=== PATIENT | female | born 1945 | race Caucasian/White ===

== ENCOUNTER 2022-02-25 07:56 | Outpatient (CLI) | payer MEDICARE, BC, SELFPAY ==
[2022-02-25 10:45] LABS: Cholesterol* 141 mg/dL (90-199)
[2022-02-25 10:46] LABS: HDL Cholesterol* 45 mg/dL (>=50); LDL Cholesterol Calculated 67 mg/dL (<100); Triglycerides* 145 mg/dL (40-149)
== END 2022-02-25 07:57 | disposition home or self-care (01) ==
PROVIDERS: PCP Family Medicine; Visit Provider Family Medicine
DX: E78.5 Hyperlipidemia, unspecified (principal)
CPT/HCPCS: 80053; 80061

== ENCOUNTER 2022-03-05 11:17 | Outpatient (CLI) | payer MEDICARE, BC, SELFPAY ==
[2022-03-05 15:14] LABS: Chloride* 106 mmol/L (96-114); Sodium* 137 mmol/L (135-149)
[2022-03-05 15:15] LABS: Potassium* 4.5 mmol/L (3.6-5.1)
[2022-03-05 15:17] LABS: Alanine Aminotransferase* 21 U/L (4-35); Alkaline Phosphatase* 59 U/L (40-150); Aspartate Amino Transferase* 37 U/L (12-35); Bilirubin Total* 0.7 mg/dL (0.1-1.5); Blood Urea Nitrogen* 15 mg/dL (7-30); Carbon Dioxide* 28 mmol/L (20-32); Creatinine* 0.7 mg/dL (0.5-1.5); Estimated Glomerular Filt Rate 90 ml/min; Glucose* 96 mg/dL (60-115); Total Protein* 6.7 g/dL (6.0-8.3)
[2022-03-05 15:18] LABS: Calcium* 9.2 mg/dL (8.4-10.6)
== END 2022-03-05 11:18 | disposition home or self-care (01) ==
PROVIDERS: PCP Family Medicine; Visit Provider Family Medicine
DX: E78.5 Hyperlipidemia, unspecified (principal)
CPT/HCPCS: 80053

== ENCOUNTER 2022-03-11 07:25 | Day surgery (SDC) | payer MEDICARE, BC, SELFPAY ==
[2022-03-11] VITALS (24 sets, daily range): BP systolic 92–156; BP diastolic 48–87; PULSE 51–69; RESP 12–20; TEMP 35.9–37; O2SAT 95–100; BMI 29.7
--- NOTE | 2022-03-11 08:13 | SUR.PREOP ---
states she had two exposures to covid in the past week. she tested positive
[2022-03-11] MEDS: LACTATED RINGERS 1000 ML 1,000 ML 100 ML IV ×2 (08:30→11:26)
[2022-03-11] MEDS: SODIUM CHLORIDE 0.9 % (FLUSH) 10 ML SYRINGE IVF (08:30)
[2022-03-11] MEDS: OXYCODONE (CR) 10 MG TAB.ER.12H PO (08:35)
[2022-03-11] MEDS: ACETAMINOPHEN 500 MG TABLET 1000 MG PO ×3 (08:35→22:56)
--- NOTE | 2022-03-11 08:42 | SUR.PREOP ---
TIME?OUT:?0845, right knee PT/RN/MDA?VERIFICATION?OF?SURGICAL?SITE,?PROCEDURE,?AND?CONSENT OBTAINED?PRIOR?TO?INVASIVE?PROCEDURE.
[2022-03-11] MEDS: fentaNYL 100 MCG/2 ML inj IVP (08:45)
[2022-03-11] MEDS: MIDAZOLAM HCL 1 MG/ML inj IVP (08:45)
--- NOTE | 2022-03-11 09:05 | W.PM.NB ---
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 Images saved: Yes Medications given in 5ml increments after negative aspiration: Ropivicaine %: 0.5 mL: 20 Decadron (mg): 10 Precedex (mcg): 20 Patient tolerated procedure well: Yes Block Charges Block Charge (with Pro Fee): Femoral Nerve Use of Ultrasound Machine for Block: Yes- US Guidance/pain block
--- NOTE | 2022-03-11 09:07 | P.NB_ITS ---
Nerve Block Nerve Block Time Seen by Provider: 08:45 Date Seen: 03/11/22 Type of block requested by surgeon for post-operative analgesia: geniculars Side: right Time out performed: Yes Verification of patient name: Yes Verification of date of : Yes Site marking: site marked Name of person performing procedure: Blaze Rosemary Continuous monitoring Was continuous monitoring of O2 sat, B/P, monitoring manager, recorded every 15 minutes?: Yes Procedure Checklist: sterile prep, needles and gloves Ultrasound guided. Images saved: Yes Medications given in 5ml increments after negative aspiration: Ropivicaine %: 0.5 mL: 10 Patient tolerated procedure well: Yes Block Charges Block Charge (with Pro Fee): Genicular Nerve Block Use of Ultrasound Machine for Block: Yes- US Guidance/pain block
[2022-03-11] MEDS: CEFAZOLIN 2 GM INJ IVP (09:15)
[2022-03-11] MEDS: TRANEXAMIC ACID 100 MG/ML INJ 1000 MG IV (09:17)
--- NOTE | 2022-03-11 10:26 | SUR.OPER ---
PATIENT QUESTIONS ANSWERED SATISFACTORILY PREOPERATIVELY.? PATIENT BROUGHT TO OR #3 PER CART AFTER ADMINISTRATION OF A BLOCK.? Patient positioned supine on OR #3 bed.? The perioperative?team supported arms bilaterally on arm boards.? Final approval of positioning by surgeon.?
--- NOTE | 2022-03-11 10:28 | CRLHL7_ITS ---
For Patients: As a result of the Cures Act, medical imaging exams and procedure reports are released immediately into your electronic medical record. You may view this report before your referring provider. If you have questions, please contact your health care provider. INDICATION: Post operative total knee arthroplasty TECHNIQUE: Knee radiograph 2 views right COMPARISON: None FINDINGS: Bone: No acute fractures or aggressive bone lesions are identified. Joint: The patient is status post a total knee arthroplasty with patellar resurfacing. No significant knee effusion is seen. Soft tissue: Anterior skin, subcutaneous gas and joint gas are present from recent surgery. No radiopaque foreign bodies are seen. IMPRESSION: 1. There is an unremarkable postoperative appearance of the knee arthroplasty. Dictated by: Cedric Giraldo MD @ 03/11/2022 12:56:41 (Electronically Signed)
--- NOTE | 2022-03-11 10:30 | P.ORPRC_ITS ---
Procedure Note Date of procedure: 03/11/22 Procedure: PREOPERATIVE DIAGNOSIS: Right knee osteoarthritis POSTOPERATIVE DIAGNOSIS: Right knee osteoarthritis NAME OF OPERATION: Right total knee arthroplasty SURGEON: Tevin Ramos MD TWISTING FRAME OPERATOR: Karishma Oleary PA-C ANESTHESIA: Spinal ESTIMATED BLOOD LOSS: 0 mL COMPLICATIONS: None SPECIMENS: None DRAINS: None PREOPERATIVE ANTIBIOTICS: Ancef 2 grams IMPLANTS: 1. J&J Attune # 3 posterior stabilized femur 2. # 3 fixed-bearing tibia 3. # 3 posterior stabilized, 7 mm fixed-bearing polyethylene 4. 32 patella INDICATIONS: The patient is a 76-year-old with a longstanding history of severe, unrelenting right knee pain secondary to end-stage (grade IV) right knee osteoarthritis. Despite appropriate nonoperative management, including activity modification, anti-inflammatories, bgfw-kzp-vkczyoi pain medication, bracing, physical therapy, and injections they continue to have pain and disability. Operative intervention was offered. The risks, benefits and expected outcomes were discussed in detail. These included but were not limited to: Infection, bleeding, injury to blood vessel or nerve, venous thromboembolism. All questions were answered to their satisfaction. Use of an production administrative assistant was necessary throughout the case for patient positioning and safety, soft tissue retraction, and closure. PROCEDURE: Spinal anesthesia was administered. The patient was placed supine on the operating table. The production administrative assistant made sure the patient was positioned appropriately. The lower extremity was prepped and draped in the usual sterile fashion. The limb was exsanguinated with the Mitch bandage. The pneumatic tourniquet was inflated to 300 mmHg. A standard anterior incision was made with the knee in flexion. Subcutaneous dissection was sharply taken through fascial layer #1. Full-thickness medial and lateral flaps were elevated. The production administrative assistant retracted the soft tissues and protected them throughout the case. A standard medial parapatellar approach was made. The patella was everted. The infrapatellar fat pad was preserved. The menisci and cruciate ligaments were sharply d?brided. Marginal osteophytes were d?brided with the rongeur. The drill was used to penetrate the femoral canal. The canal was aspirated and irrigated with pulse lavage. The intramedullary femoral guide was placed for a 5-degree valgus cut, removing 10 mm off the distal femur. The saw was used to make the cut. Whitesides line and the trans epicondylar axis were marked. The femoral sizing guide was pinned onto the distal femur. Three degrees of external rotation nicely parallels the transepicondylar axis. Pins were placed for posterior referencing. The four-in-one cutting guide was pinned onto the distal femur. The anterior, posterior, and chamfer cuts were made. The production administrative assistant protected the collateral ligaments. The box cutting guide was pinned. The box cuts were made. The boxed trial was placed and was an excellent fit. Drill holes for the lugs were made. Attention was then turned to the proximal tibia. The extramedullary tibial guide was placed for a neutral varus/valgus cut with 5 degrees of posterior slope, removing 2 mm based off the medial tibial surface. The production administrative assistant protected the collateral ligaments and the neurovascular bundle. The saw was used to make the cut. Trial components were placed. The knee was nicely balanced in both flexion and extension. The trial components were removed. The tray was placed in appropriate rotation, parallel to our tibial cutting pins. It was pinned by the production administrative assistant and the drill and the punch were used. The tray was removed. The punch was used again. We placed a bone plug in the femoral canal. Attention was then turned to the patella. [place] patellar thickness was 20 mm. The lobster claw resection guide was used with the 7.5 mm liset. The saw was used to make the cut. Drill holes were made by the production administrative assistant. The trial was placed and was an excellent fit. Cancellous surfaces were irrigated with pulse lavage and thoroughly dried by the production administrative assistant. We cemented the tibial component, then the femoral component. We impacted the 7 mm polyethylene onto the tibial tray. The knee was brought into full extension. We then cemented the patellar component. Excessive cement was removed. The cement was allowed to harden. The knee was taken through a range of motion and was found to be nicely balanced in both flexion and extension. The patella tracks centrally. The production administrative assistant did a three minute dilute Betadine solution soak. The production administrative assistant irrigated the wound with 3 liters of normal saline via pulse lavage. The production administrative assistant reapproximated the extensor mechanism with #1 Vicryl in an interrupted vbqiku-[id number]-rwxqp fashion. The production administrative assistant then ran the extensor mechanism with a #1 PDO Stratafix. The production administrative assistant closed the subcutaneous tissues with a 3-0 Stratafix and the skin with a running 3-0 Stratafix in a subcuticular fashion. Glue was used to seal the skin. The production administrative assistant placed a dry dressing, NITA stocking, and Polar Care. Sponge and needle counts were correct x2. The patient tolerated the procedure well. There were no apparent complications. They were carefully transferred to the hospital bed and taken to the postanesthesia care unit in satisfactory condition. PLAN: The patient will be mobilized with physical therapy. Aspirin will be used for DVT prophylaxis. They will be discharged to home once medically appropriate.
--- NOTE | 2022-03-11 11:25 | W.ANESCHARGE ---
Anesthesia Charges Start Date/Time Anesthesia Start Date: 03/11/22 Anesthesia Start Time: 09:06 Stop Date/Time Anesthesia Stop Date: 03/11/22 Anesthesia Stop Time: 11:27 Summary Emergency: No Extremes of Age: Over 71-CPT 88408
[2022-03-11] MEDS: CEFAZOLIN 1 GM in 0.9 % SODIUM CHLORIDE Mini-bag 100 ML IVPB ×2 (15:22→23:07)
--- NOTE | 2022-03-11 18:21 | PC.NURSE ---
End of Shift: Patient pleasant and cooperative. Patient vitally stable, lungs clear, BS WNL, IV SL. Patient denies pain, only given scheduled tylenol. Patient tolerating regular diet. Patient has urinated x2 to the toilet. Patient up in chair. Patient 1 assist, walker, gb. Right knee dressing C/D/I.
[2022-03-11] MEDS: SENNOSIDES 1 TAB TABLET 2 TAB PO (21:01)
[2022-03-11] MEDS: ASPIRIN 81 MG TABLET EC PO (21:01)
[2022-03-11] MEDS: SIMVASTATIN 20 MG TABLET PO (21:01)
[2022-03-11] MEDS: OXYCODONE 5 MG TABLET PO (22:58)
[2022-03-12 03:00] VITALS: BP 123/62; PULSE 63; RESP 16; TEMP 36.2; O2SAT 99
[2022-03-12] MEDS: ACETAMINOPHEN 500 MG TABLET 1000 MG PO ×2 (04:33→11:35)
--- NOTE | 2022-03-12 04:58 | PC.NURSE ---
Shift note: Pt is doing well postoperatively. Able walk to BR about 4x with A1, walker and GB. Tolerated liberal fluid and regular diet very well without any complication. Pain has been rated at 2 which has been managed effectively with scheduled and PRN pain medications. Saline locked. Lungs sounds clear throughout.
[2022-03-12 06:28] LABS: Hemoglobin* 10.5 gm/dL (12.0-16.0); Immature Granulocytes Pct Auto 0.2 %; Lymphocytes Percent Auto 9.9 % (20-44); Mean Corpuscular HGB Conc 34 gm/dL (32-36); Mean Corpuscular Hemoglobin 29 pg (26-34); Mean Corpuscular Volume 85 fL (80-100); Monocytes Percent Auto 7.6 % (0.0-11.0); Neutrophils Percent Auto 82.3 % (42.0-72.0); Platelet Count* 228 K/uL (140-440); RDW Coefficient of Variation % 12.5 % (11.5-15.5); Red Blood Count 3.65 m/uL (4.00-5.20); White Blood Count* 14.11 K/uL (4.50-11.00)
[2022-03-12 06:35] LABS: Slide Review Reflex No
[2022-03-12 06:45] LABS: Potassium* 4.2 mmol/L (3.6-5.1); Sodium* 129 mmol/L (135-149)
[2022-03-12 06:48] LABS: Blood Urea Nitrogen* 16 mg/dL (7-30); Creatinine* 0.7 mg/dL (0.5-1.5); Est. Creatinine Clearance* 40.21; Estimated Glomerular Filt Rate 90 ml/min
[2022-03-12 06:54] LABS: INR 1.04 (0.91-1.10); Prothrombin Time 14.2 Seconds
[2022-03-12 07:00] VITALS: BP 126/69; PULSE 65; RESP 16; TEMP 36.5; O2SAT 99
[2022-03-12] MEDS: CEFAZOLIN 1 GM in 0.9 % SODIUM CHLORIDE Mini-bag 100 ML IVPB (07:57)
[2022-03-12] MEDS: OXYCODONE 5 MG TABLET PO ×2 (08:30→11:32)
[2022-03-12] MEDS: SENNOSIDES 1 TAB TABLET 2 TAB PO (08:31)
[2022-03-12] MEDS: ASPIRIN 81 MG TABLET EC PO (08:31)
--- NOTE | 2022-03-12 08:41 | P.ORPN_ITS ---
Subjective Subjective Time Seen by Provider: 07:00 Date Seen: 03/12/22 Principal diagnosis: Status post right total knee replacement Interval history: Nissa is comfortable this morning. She requests no NSAIDs. She will be discharging to home today if physical therapy goes well. Ortho Exam Narrative Exam Narrative: Alert and oriented x3. Patient is in no acute distress. Converses without labored breathing. Hearing is grossly intact. Ambulates with a walker. Examination of the right lower extremity shows mild effusion. Mild soft tissue edema about the right knee. No erythema or drainage or sign of infection. Bilateral calves are soft and nontender. CMS is intact right lower extremity. Const Vital Signs, click to edit/add: Vital Signs - 24 hr 03/11/22 08:45 03/11/22 09:02 03/11/22 08:55 Temperature Pulse Rate 63 56 L 57 L Pulse Rate [Left Pulse Oximeter] Respiratory Rate 20 20 20 Blood Pressure 156/87 H 147/85 H 150/76 H Blood Pressure [Right Arm] Pulse Oximetry 99 99 99 Oxygen Delivery Method Nasal Cannula Nasal Cannula Nasal Cannula Oxygen Flow Rate 3 3 3 03/11/22 11:22 03/11/22 11:27 03/11/22 11:32 Temperature 98 F Pulse Rate 58 L 56 L 54 L Pulse Rate [Left Pulse Oximeter] Respiratory Rate 16 17 17 Blood Pressure 92/51 L 98/49 L 100/72 Blood Pressure [Right Arm] Pulse Oximetry 97 97 98 Oxygen Delivery Method Room Air Room Air Room Air Oxygen Flow Rate 3 03/11/22 11:37 03/11/22 11:42 03/11/22 11:47 Temperature Pulse Rate 54 L 54 L 57 L Pulse Rate [Left Pulse Oximeter] Respiratory Rate 12 12 12 Blood Pressure 101/58 L 117/61 109/71 Blood Pressure [Right Arm] Pulse Oximetry 98 98 99 Oxygen Delivery Method Room Air Room Air Room Air Oxygen Flow Rate 3 3 3 03/11/22 11:52 03/11/22 12:02 03/11/22 12:15 Temperature 97.9 F 96.7 F L 96.7 F L Pulse Rate 57 L 51 L Pulse Rate [Left Pulse Oximeter] 53 L Respiratory Rate 12 14 14 Blood Pressure 127/66 Blood Pressure [Right Arm] 129/56 L 140/77 H Pulse Oximetry 99 100 Oxygen Delivery Method Room Air Room Air Room Air Oxygen Flow Rate 3 03/11/22 12:30 03/11/22 12:45 03/11/22 13:00 Temperature 96.7 F L 96.9 F L 97.2 F L Pulse Rate Pulse Rate [Left Pulse Oximeter] 55 L 56 L 56 L Respiratory Rate 14 14 16 Blood Pressure Blood Pressure [Right Arm] 141/73 H 106/56 L 113/53 L Pulse Oximetry 98 100 99 Oxygen Delivery Method Room Air Room Air Room Air Oxygen Flow Rate 03/11/22 13:30 03/11/22 14:00 03/11/22 15:00 Temperature 97 F L 96.9 F L 97.3 F L Pulse Rate Pulse Rate [Left Pulse Oximeter] 53 L 60 67 Respiratory Rate 16 16 16 Blood Pressure Blood Pressure [Right Arm] 129/77 152/71 H 119/48 L Pulse Oximetry 98 98 98 Oxygen Delivery Method Room Air Room Air Room Air Oxygen Flow Rate 03/11/22 15:00 03/11/22 15:00 03/11/22 16:00 Temperature 97.7 F Pulse Rate Pulse Rate [Left Pulse Oximeter] 67 Respiratory Rate 16 16 Blood Pressure Blood Pressure [Right Arm] 124/67 Pulse Oximetry 100 99 Oxygen Delivery Method Room Air Oxygen Flow Rate 03/11/22 17:00 03/11/22 18:05 03/11/22 19:00 Temperature 97.7 F 97.8 F 97.4 F L Pulse Rate Pulse Rate [Left Pulse Oximeter] 61 69 62 Respiratory Rate 16 16 16 Blood Pressure Blood Pressure [Right Arm] 119/59 L 102/67 102/50 L Pulse Oximetry 99 95 98 Oxygen Delivery Method Room Air Room Air Room Air Oxygen Flow Rate 0 03/11/22 23:00 03/11/22 23:00 03/12/22 03:00 Temperature 97 F L 97.2 F L Pulse Rate Pulse Rate [Left Pulse Oximeter] 62 63 Respiratory Rate 16 16 Blood Pressure Blood Pressure [Right Arm] 128/55 L 123/62 Pulse Oximetry 98 98 99 Oxygen Delivery Method Room Air Room Air Oxygen Flow Rate 0 0 Assessment and Plan Assessment and plan (1) Status post right knee replacement: Problem details: Date of surgery 03/11/2022 Status: Acute Assessment and Plan: Plan for discharge is today to home if they meet discharge criteria. DVT prophylaxis includes aspirin 81 mg twice daily x1 month, Loki stockings x1 m onth may remove for 1 hr per day, frequent ambulation Remove dressing in 1 week. Observe wound and phone Orthopedics with any questions or concerns Return to clinic in 1 week for a wound check Return to clinic in [address] Ramos Minimize narcotic use. Wean off and discontinue soon as possible. Activities as tolerated. No strenuous activity. Outpatient physical therapy as scheduled. Ice and elevate the operative extremity. No restriction on ice.
--- NOTE | 2022-03-12 12:04 | PC.NURSE ---
Pt. alert and oriented. Pt. tolerating reg diet. PRN oxy administered prior to PT/OT visit, and prior to discharge. Pt. dressing to right knee C/D/I. Pt. denies N/V/SOB. Pt. 99% on RA. Discharged today at 1145 accompanied by dtr and son-in-law, IV removed from left wrist intact. Discharge instructions given and Pt. verbalized understanding.
== END 2022-03-12 11:45 | disposition home or self-care (01) ==
LOC: OR 07:39 → MEDSURG 07:40
PROVIDERS: PCP Family Medicine; Visit Provider Orthopaedic Surgery
PROC: (CPT 27447; principal; 2022-03-11 09:00)
DX: M17.11 Unilateral primary osteoarthritis, right knee (principal); M25.561 Pain in right knee
CPT/HCPCS: 27447; 01402; 36415; 64447; 64454; 73560; 76942; 82565; 84132; 84295; 84520; 85025; 85610; 97110; 97116; 97161; 97165; 97530; 97535; 99100; A9270; C1776; J0690; J1100; J2250; J2370; J2405; J2704; J2795; J3010; J7120

== ENCOUNTER 2022-07-26 08:15 | Outpatient (CLI) | payer MEDICARE, BC, SELFPAY ==
--- NOTE | 2022-07-26 08:15 | CRLHL7_ITS ---
For Patients: As a result of the Century Cures Act, medical imaging exams and procedure reports are released immediately into your electronic medical record. You may view this report before your referring provider. If you have questions, please contact your health care provider. INDICATION: Intra-abdominal CALCIFICATION COMPARISON: X-rays 07/12/2022 TECHNIQUE: 2D obrien scale and color Doppler images were acquired of the pelvis using a transabdominal approach. FINDINGS: There is a large calcified uterine fibroid measuring 3.6 x 3.3 x 4.2 cm accounting for the radiographic findings. The uterus measures 8.9 x 5.1 x 6.3 cm. The endometrial thickness is 4 millimeters. The ovaries are not visualized. No pelvic free fluid. IMPRESSION: Right-sided fundal leiomyoma measuring 3.6 x 3.3 x 4.2 cm with coarse calcifications accounting for the radiographic findings. Dictated by Afshin Shankar MD @ 07/26/2022 9:46:32 AM (Electronically Signed)
== END 2022-07-26 08:16 | disposition home or self-care (01) ==
LOC: US 08:16
PROVIDERS: PCP Internal Medicine; Visit Provider Internal Medicine
DX: R19.00 Intra-abdominal and pelvic swelling, mass and lump, unspecified site (principal); D25.9 Leiomyoma of uterus, unspecified
CPT/HCPCS: 76856

== ENCOUNTER 2022-08-18 09:03 | Outpatient (CLI) | payer MEDICARE, BC, SELFPAY ==
--- NOTE | 2022-08-18 09:15 | CRLHL7_ITS ---
For Patients: As a result of the Cures Act, medical imaging exams and procedure reports are released immediately into your electronic medical record. You may view this report before your referring provider. If you have questions, please contact your health care provider. HISTORY: Low back pain with right-sided radiculopathy. Right thigh and groin pain. TECHNIQUE: MRI pelvis without contrast. COMPARISON: Pelvis radiographs 07/29/2022. FINDINGS: Bones: No fracture. No marrow replacing process. No osteonecrosis. Muscles and tendons: Mild osteoarthritis of the left hip with small subarticular cyst-like foci in the posterior acetabulum. Mild osteoarthritis the right hip. No effusions. Muscles and tendons: Proximal rectus femoris, distal iliopsoas, hip adductor, and gluteal tendons are intact bilaterally. Tendinosis of the proximal hamstring tendons bilaterally, mild on the right and moderate on the left. No trochanter or iliopsoas bursal fluid. No muscle edema. Other: Mild degenerative changes of the pubic symphysis with mild subarticular marrow edema on the right side of the joint. Mild degenerative changes of the sacroiliac joints. Lower lumbar spine disc and facet degenerative changes more fully detailed on lumbar spine MRI report. Intrapelvic structures: Uterine myomas. Borderline enlarged right pelvic sidewall lymph node measures 10 mm short axis. IMPRESSION: 1. Mild osteoarthritis of both hips. 2. Mild degenerative changes of the pubic symphysis and sacroiliac joints. 3. No fracture. 4. Tendinosis of the proximal hamstring tendons bilaterally, left greater than right. Dictated by Job Pradhan MD @ 08/19/2022 11:49:37 AM (Electronically Signed)
--- NOTE | 2022-08-18 10:00 | CRLHL7_ITS ---
For Patients: As a result of the 21st Century Cures Act, medical imaging exams and procedure reports are released immediately into your electronic medical record. You may view this report before your referring provider. If you have questions, please contact your health care provider. Indication Low back pain. Right-sided radiculopathy. TECHNIQUE: Multiplanar multisequence noncontrast MR images acquired through the lumbar spine. COMPARISON: None. FINDINGS: The lumbar lordosis is preserved. Vertebral heights maintained. No acute fracture. Mildly heterogeneous background T1 marrow signal, nonspecific though potentially related to osseous demineralization. Normal conus terminates at L1. T12-L1: No spinal canal or neural foraminal narrowing. L1-2: Mild disc degeneration. Shallow left eccentric disc bulge. Mild facet arthropathy. No spinal canal or neural foraminal narrowing. L2-3: Moderate disc degeneration and disc height loss. Circumferential disc bulge. Superimposed right subarticular disc protrusion extending 6 mm posterior the endplate margin. Mild facet arthropathy. Nase-un-nudxsggb spinal canal narrowing. Severe right lateral recess stenosis. No neural foraminal narrowing. L3-4: Moderate disc degeneration and disc height loss. Posterior disc bulge. Moderate facet arthropathy. Mild spinal canal narrowing. Mild right and zoig-mk-vjdaddae left lateral recess narrowing. No neural foraminal narrowing. L4-5: Trace anterolisthesis. Advanced disc degeneration and disc height loss. Moderately extensive vertebral body edema. Left eccentric disc bulging and endplate spondylitic ridging. Jsjt-dz-tzuhylch facet arthropathy. Mild spinal canal narrowing. Moderately severe left lateral recess stenosis. Kxur-kc-jnhinins left greater than right neural foraminal narrowing. L5-S1: Moderate disc degeneration. Shallow posterior disc bulge. Moderate facet arthropathy. No spinal or neural foraminal narrowing. Sacroiliac joint degenerative changes. IMPRESSION: 1. Multilevel lumbar spondylosis without spinal canal stenosis. 2. At L2-3, right subarticular disc protrusion severely narrows the right lateral recess. Mild to moderate spinal canal narrowing. 3. At L3-4, mild right and dqll-xt-bwxbxfkm left lateral recess narrowing. 4. At L4-5, moderately severe left lateral recess stenosis. Mild to moderate left greater than right neural foraminal narrowing. Moderately extensive discogenic vertebral body edema. Dictated by Uziel Giron MD @ 08/19/2022 9:27:22 PM (Electronically Signed)
== END 2022-08-18 09:04 | disposition home or self-care (01) ==
LOC: MRI 09:04
PROVIDERS: PCP Internal Medicine; Visit Provider Family Medicine
DX: M54.50 Low back pain, unspecified (principal); M79.604 Pain in right leg; M54.10 Radiculopathy, site unspecified; M16.0 Bilateral primary osteoarthritis of hip; M51.26 Other intervertebral disc displacement, lumbar region
CPT/HCPCS: 72148; 72195

== ENCOUNTER 2022-09-02 14:32 | Outpatient (CLI) | payer MEDICARE, BC, SELFPAY ==
--- NOTE | 2022-09-02 14:40 | CRLHL7_ITS ---
For Patients: As a result of the Century Cures Act, medical imaging exams and procedure reports are released immediately into your electronic medical record. You may view this report before your referring provider. If you have questions, please contact your health care provider. BILATERAL SCREENING MAMMOGRAM WITH COMPUTER-AIDED DETECTION AND TOMOSYNTHESIS TECHNIQUE: CC and MLO views were obtained. These mammographic images have been obtained using full-field digital technique. These mammographic images were interpreted with the benefit of computer-aided detection. Breast Tomosynthesis was used in this interpretation. COMPARISON FILM: 07/06/21, 06/09/20, 01/18/19. FINDINGS: The breasts are heterogeneously dense, which may obscure small masses IMPRESSION: There is no radiographic evidence for malignancy. ASSESSMENT: BI-RADS Category 1: Negative RECOMMENDATION: Routine screening mammogram in 1 year. A lay language report of this examination will be provided to the patient. Afshin Shankar M.D. Diagnostic Radiologist [email or web address] [place]/Dictated by: Afshin Shankar MD @ 09/03/2022 8:51:00 AM (Electronically Signed)
== END 2022-09-02 14:33 | disposition home or self-care (01) ==
LOC: MAMMO 14:33
PROVIDERS: PCP Internal Medicine; Visit Provider Internal Medicine
DX: Z12.31 Encounter for screening mammogram for malignant neoplasm of breast (principal); R92.2 Inconclusive mammogram
CPT/HCPCS: 77063; 77067

== ENCOUNTER 2023-02-21 08:59 | Outpatient (CLI) | payer MEDICARE, BC, SELFPAY | END 2023-02-21 09:00 | disposition home or self-care (01) | LOC: NFLDREF 02-23 12:04 | PROVIDERS: PCP Internal Medicine; Referring Provider Internal Medicine; Visit Provider Internal Medicine | DX: E78.5 Hyperlipidemia, unspecified (principal); I10 Essential (primary) hypertension; E66.9 Obesity, unspecified | CPT/HCPCS: 80053; 80061 ==

== ENCOUNTER 2023-09-14 10:23 | Outpatient (CLI) | payer MEDICARE, BC, SELFPAY ==
--- OUTSIDE RECORDS SUMMARY | 2023-09-14 10:26 | XMS_ITS | Clinical Summary ---
Author Organization [facility] Address [address] [address] Phone Care Team Providers Care Pump Installer Name Role Phone Unavailable Primary Care Provider Unavailabl e Allergies Active Allergy Reactions Criticality Noted Date Comments Ibuprofen 10/29/2011 Nabumetone 10/29/2011 Medications Medication Sig Dispensed Refills Start Date End Date Status atenolol (TENORMIN) 25 MG tablet Take 25 mg by mouth one time a day. Active hydrochlorothiazide 25 MG tablet Take 25 mg by mouth one time a day. Active SIMVASTATIN OR Take by mouth. Active aspirin (BABY ASPIRIN) 81 MG chewable tablet Chew and swallow 81 mg one time a day. Take with food. Active Social History Tobacco Use Types Packs/Day Years Used Date Smoking Tobacco: Never Assessed Sex and Gender Information Value Date Recorded Sex Assigned at Not on file Gender Identity Not on file Sexual Orientation Not on file Obstetrics History Last Filed Vital Signs Vital Sign Reading Time Taken Comments Blood Pressure 137/74 10/30/2011 1:03 AM CDT Pulse 60 10/30/2011 1:03 AM CDT Temperature 36 ??C (96.8 ??F) 10/29/2011 9:03 PM CDT Respiratory Rate 16 10/30/2011 1:03 AM CDT Oxygen Saturation 96% 10/30/2011 1:03 AM CDT Inhaled Oxygen Concentration - - Weight - - Height - - Body Mass Index - - Plan of Treatment Not on file
--- OUTSIDE RECORDS SUMMARY | 2023-09-14 10:26 | XMS_ITS | Clinical Summary ---
Author Organization [facility] Address [place], [place] [address] Care Team Providers Care Machine Ii Engraver Name Role Phone Polo Salvador MD Primary Care Provider Allergies Active Allergy Reactions Criticality Noted Date Comments Diphenhydramine 02/13/2007 IV Nabumetone 02/13/2007 Medications Medication Sig Dispensed Refills Start Date End Date Status ATENOLOL 25 MG TAB take 1 tablet (25 mg) by oral route once daily 0 11/16/2006 Active HYDROCHLOROTHIAZIDE 25 MG TAB take 1 tablet (25 mg) by oral route once daily 0 11/16/2006 Active MULTIVITAMIN TAB take 1 tablet by oral route once daily with food 0 02/13/2007 Active simvastatin (ZOCOR) 20 mg tablet Take 1 tablet by mouth at bedtime. 0 12/04/2012 Active typhoid vaccine (VIVOTIF UMER VACCINE) 2 billion unit capsuleIndications:Ty phoid-paratyphoid vaccination Take 1 capsule by mouth with lukewarm water on empty stomach on days 1,3,5 and 7. 4 capsule 0 12/04/2012 Active Active Problems Problem Noted Date Diagnosed Date Hypertension Hyperlipidemia Immunizations Name Administration Dates Next Due HepA-HepB (Twinrix) 12/07/2012 01/07/2013 Influenza, IIV3 (Age >=3 years) 12/04/2012 Pneumococcal Poly,23-Valent (Pneumovax) 12/08/19 13 Family History Medical History Relation Name Comments Cancer-prostate Brother Heart Disease Father CABG Cancer Mother Sarcoma Cancer Sister lung Relation Name Status Comments Brother Father Mother Sister Social History Tobacco Use Types Packs/Day Years Used Date Smoking Tobacco: Never Smokeless Tobacco: Never Tobacco Cessation:Counseling Given: Yes Alcohol Use Standard Drinks/Week Comments Yes 0 (1 standard drink = 0.6 oz pur e alcohol) once a month Sex and Gender Information Value Date Recorded Sex Assigned at Not on file Gender Identity Not on file Sexual Orientation Not on file Obstetrics History Last Filed Vital Signs Vital Sign Reading Time Taken Comments Blood Pressure 133/82 12/04/2012 9:08 AM CDT Pulse 54 12/04/2012 9:08 AM CDT Temperature 36.4 ??C (97.6 ??F) 12/04/2012 9:08 AM CD T Respiratory Rate 16 02/13/2007 8:13 AM LPC Oxygen Saturation 99% 12/04/2012 9:08 AM CDT Inhaled Oxygen Concentration - - Weight 87.6 kg (193 lb 3.2 oz) 12/04/2012 9:08 A M CDT Height 161.9 cm (5' 3.75) 12/04/2012 9:08 AM CD T Body Mass Index 33.42 12/04/2012 9:08 AM CDT Plan of Treatment Health Maintenance Due Date Last Done Comments Tdap 1957 Depression screening for age 12+ 1958 BMI (ht and wt on same day) for age 18+ 1964 Hepatitis C screening for age 18-79 1964 Tetanus booster 1966 Zoster (shingles) series for age 50+ (1 of 2) 11/22/18 97 DEXA/DXA scan for age 65+ 11/23/2011 Pneumococcal series for age 65+ (2 of 2 - PCV) 014 12/07/2012 COVID-19 vaccine series ( - 2022-24 season) 3 Influenza for age 65+ 11/06/2023 12/04/2012 Care Teams Machine Ii Engraver Relationship Specialty Start Date End Date Polo Salvador MD [address] [place] [id number] PCP - General 11/16/06
--- NOTE | 2023-09-14 10:45 | CRLHL7_ITS ---
For Patients: As a result of the Century Cures Act, medical imaging exams and procedure reports are released immediately into your electronic medical record. You may view this report before your referring provider. If you have questions, please contact your health care provider. BILATERAL SCREENING MAMMOGRAM WITH COMPUTER-AIDED DETECTION AND TOMOSYNTHESIS TECHNIQUE: CC and MLO views were obtained. These mammographic images have been obtained using full-field digital technique. These mammographic images were interpreted with the benefit of computer-aided detection. Breast Tomosynthesis was used in this interpretation. COMPARISON FILM: 09/02/22, 07/06/21, 06/09/20. FINDINGS: The breasts are heterogeneously dense, which may obscure small masses. IMPRESSION: There is no radiographic evidence for malignancy. ASSESSMENT: BI-RADS Category 2: Benign RECOMMENDATION: Routine screening mammogram in 1 year. A lay language report of this examination will be provided to the patient. Alec Trevino M.D. Diagnostic/Nuclear Medicine Radiologist [email or web address] NIKOLAI/pietro SP/Dictated by: Alec Trevino MD @ 09/15/2023 10:47:00 AM (Electronically Signed)
== END 2023-09-14 10:24 | disposition home or self-care (01) ==
LOC: MAMMO 10:24
PROVIDERS: PCP Internal Medicine; Visit Provider Internal Medicine
DX: Z12.31 Encounter for screening mammogram for malignant neoplasm of breast (principal); R92.2 Inconclusive mammogram
CPT/HCPCS: 77063; 77067

== ENCOUNTER 2023-12-20 08:20 | Outpatient (CLI) | payer MEDICARE, BC, SELFPAY ==
--- OUTSIDE RECORDS SUMMARY | 2023-12-20 08:22 | XMS_ITS | Clinical Summary ---
Author Organization [facility] Address [address] [address] Phone Care Team Providers Care Burning Machine Operator Name Role Phone Unavailable Primary Care Provider [...] Mass Index - - Plan of Treatment Upcoming Encounters Date Type Department Care Team (Latest Contact Info) Description 01/11/2024 9:30 AM [facility] Hospital Encounter [place] [facility] PREOP/PHASE II [address] [place] [address] Rachelle Blanco MD [facility] [address] [facility] [address] [place], [place] [id number] 01/11/2024 9:30 AM 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
--- OUTSIDE RECORDS SUMMARY | 2023-12-20 08:22 | XMS_ITS | Clinical Summary ---
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
== END 2023-12-20 08:21 | disposition home or self-care (01) ==
PROVIDERS: PCP Internal Medicine; Visit Provider Internal Medicine
DX: Z01.818 Encounter for other preprocedural examination (principal)
CPT/HCPCS: 80053

== ENCOUNTER 2024-01-16 18:50 | Outpatient (CLI) | payer MEDICARE, BC, SELFPAY ==
--- OUTSIDE RECORDS SUMMARY | 2024-01-21 06:28 | XMS_ITS | Clinical Summary ---
Author Organization [facility] Address [address] [address] Phone Care Team Providers Care Thermoscrew Operator Name Role Phone Virgen Arnold MD Primary Care Provider +1- [phone] Allergies Active Allergy Reactions Criticality Noted Date [...] Department Care Team Description 01/11/2024 9:27 AM ROCK PICKER Anesthesia Event [facility] SURGERY OR [address] [place] [phone] Polo Mills MD Honl, Cody C, DO 01/11/2024 9:20 AM ROCK PICKER - 01/11/2024 11:10 AM ROCK PICKER Surgery [facility] SURGERY OR [address] [place] [phone] Rachelle Blanco MD Left total knee arthroplasty 01/11/2024 7:50 AM ROCK PICKER Ancillary Procedure [facility] RADIOLOGY OS FILMS [address] [place] [phone] 01/11/2024 7:34 AM ROCK PICKER - 01/12/2024 11:34 AM ROCK PICKER Hospital Encounter [facility] INPATIENT [address] [place] [phone] Rachelle Blanco MD S/P total knee arthroplasty, left (Primary Dx) Discharge Disposition: Home and/or Self Care 01/11/2024 Travel 01/09/2024 Travel from Last 3 Months Surgical History Surgery Date Site/Laterality Comments TOTAL KNEE REPLACEMENT KNEE ARTHROSCOPY Right TONSILLECTOMY AND ADENOIDECTOMY APPENDECTOMY TOTAL KNEE ARTHROPLASTY 01/11/2024 Knee/Left Procedure: Left total knee arthroplasty; Surgeon: Rachelle Blanco MD; Location: [facility] OR Medical devices from this surgery are in the Medical Devices section. Social History Tobacco Use Types Packs/Day Years Used Date Smoking Tobacco: Never Passive Smoke Exposure: Past Smokeless Tobacco: Never Tobacco Cessation:Counseling Given: No Alcohol Use Standard Drinks/Week Comments Not Currently 0 (1 standard drink = 0.6 oz pur e alcohol) [facility] Utilities Answer Date Recorded In the [...] any time in the past 12 m [facility], were you homeless or living in a [facility] (including now)? Patient declined 01/11/2024 IP Custom IPV Answer Date Recorded Do you feel UNSAFE in any of your personal relationships with your family members or any other acquaintances? No 2023 Comments No Sex and Gender Information Value Date Recorded Sex Assigned at Not on file Legal Sex Female 10:55 PM ROCK PICKER Gender Identity Not on file Sexual Orientation Not on file Travel History Travel Start Travel End [place] 12/09/2023 01/09/2024 [place] 12/09/2023 01/09/2024 [place] 12/09/2023 01/09/2024 Obstetrics History Last Filed Vital Signs Vital Sign Reading Time Taken Comments Blood Pressure 115/56 01/12/2024 8:15 AM ROCK PICKER Pulse 55 01/12/2024 8:15 AM ROCK PICKER Temperature 36.4 ??C (97.6 ??F) 01/12/2024 8:15 AM CS T Respiratory Rate 16 01/12/2024 8:15 AM ROCK PICKER Oxygen Saturation 99% 01/12/2024 8:15 AM ROCK PICKER Inhaled Oxygen Concentration - - Weight 81.4 kg (179 lb 7.3 oz) 01/11/2024 7:45 A M ROCK PICKER Height 160 cm (5' 3) 01/11/2024 7:45 AM ROCK PICKER Body Mass Index 31.79 01/11/2024 7:45 AM ROCK PICKER Plan of Treatment Health Maintenance Due Date [...] this topic Medical Devices Implanted Type Area Head Rigger Device Identifier Shelf Expiration Date Model / Serial / Lot Cement Bone Mv Simplex P Speedset - [id number] Implanted:Qty: 2 on 01/11/2024 by Rachelle Blanco MD at [facility] Left: Knee CEASAR [id number] 6192-1-010 / NA / [id number] Attune Pinning System Disp - [id number] Implanted:Qty: 1 on 01/11/2024 by Rachelle Blanco MD at [facility] Left: Knee DEPUY [id number] 12/04/2025 2544-00-111 / NA / [id number] Tibia Attune Fb Sz 4 Cemented - [id number] Implanted:Qty: 1 on 01/11/2024 by Rachelle Blanco MD at [facility] Left: Knee DEPUY [id number] 09/03/2033 1506-70-004 / NA / [id number] Insert Tibial Attune Aox Ps Fb Sz 4 8mm - [id number] Implanted:Qty: 1 on 01/11/2024 by Rachelle Blanco MD at [facility] Left: Knee [id number] 08/04/2028 1516-40-408 / NA / [id number] Femur Attune Ps Size 4 Left - [id number] Implanted:Qty: 1 on 01/11/2024 by Rachelle Blanco MD at [facility] Left: Knee DEPUY [id number] 07/05/2031 1504-10-104 / NA / [id number] Patella Attune Aox Medial Dome 35mm - [id number] Implanted:Qty: 1 on 01/11/2024 by Rachelle Blanco MD at [facility] Left: Knee DEPUY [id number] 07/05/2031 1518-20-035 / NA / [id number] Procedures Procedure Name Priority Date/Time Associated Diagnosis Comments HEMOGLOBIN Routine 01/12/2024 5:44 AM ROCK PICKER ANESTHESIA BLOCK SPINAL 01/11/2024 11:14 AM ROCK PICKER TOTAL KNEE REPLACEMENT 01/11/2024 9:27 AM ROCK PICKER Knee pain M25.569 Case Notes Depuy attune -fixed Special Needs pt has sleep apnea and uses cpap allergic to nsaids -ibuprofen, naprosyn HEMOGLOBIN Routine 01/11/2024 7:55 AM ROCK PICKER US ANES REFERENCE STAT 01/11/2024 7:4 6 AM ROCK PICKER from Last 3 Months Results * (ABNORMAL) HEMOGLOBIN (01/12/2024 5:44 AM ROCK PICKER) HGB 9.9(L) 12.0 - 16.0 g/dl 01/12/2024 6:12 AM ROCK PICKER [facility] Blood BLOOD SPECIMEN / Unknown Venipuncture / Unknown 01/12/2024 5:44 AM ROCK PICKER 01/12/2024 5:57 AM ROCK PICKER Janneth Nichole PA-C EC HEMATOLOGY ORDERABLES Final Result Performing Organization Address City/State/[facility] Co de Phone Number [address] [phone] * Spinal (01/11/2024 11:14 AM ROCK PICKER) Narrative Polo Mills MD - 01/11/2024 11:14 AM ROCK PICKER Polo Mills MD ? 01/11/2024 11:14 AM [...] decubitus Prep: ChloraPrep Patient monitoring: heart rate, cardiac sonographer and continuous pulse ox Approach: right paramedian [...] Final Result * HEMOGLOBIN (01/11/2024 7:55 AM ROCK PICKER) HGB 13.1 12.0 - 16.0 g/dl 01/11/2024 8:02 AM [facility] Blood BLOOD SPECIMEN / Unknown Venipuncture / Unknown 01/11/2024 7:55 AM ROCK PICKER 01/11/2024 7:58 AM ROCK PICKER us Rachelle Blanco MD EC HEMATOLOGY ORDERABLES Fi nal Result [facility] [address] [phone] * US ANES REFERENCE (01/11/2024 7:46 AM ROCK PICKER) Narrative Lydia, User - 01/11/2024 7:46 AM ROCK PICKER There is not a diagnostic result associated [...] inal Result from Last 3 Months Insurance [facility] MEDICARE COST PART A&B Advance Directives For more information, please contact: [phone] * Full Code (Latest Code Status on File) Date Activated Date Inactivated Comments 01/11/2024 12:11 PM 01/12/2024 3:40 PM * Full Code Date Activated Date Inactivated Comments 01/11/2024 7:46 AM 01/11/2024 12:11 PM Care Teams Thermoscrew Operator Relationship Specialty Start Date End Date Virgen Arnold MD [facility] [address] [address] PCP - General Internal Medicine 01/11/24
--- OUTSIDE RECORDS SUMMARY | 2024-01-21 06:28 | XMS_ITS | Encounter Summary ---
Author Organization [facility] Address [address] [address] Phone Care Team Providers Care Research Chemist Name Role Phone Virgen Arnold MD Primary Care Provider +1- [phone] Encounter Details Date Type Department Care Team (Latest Contact Info) Description 01/11/2024 Travel Social History Tobacco Use Types Packs/Day Years Used Date Smoking Tobacco: Never Passive Smoke Exposure: Past Smokeless Tobacco: Never Alcohol Use Standard Drinks/Week Comments Not Currently 0 (1 standard drink = 0.6 oz pur e alcohol) [facility] Utilities Answer Date Recorded In the past 12 months has th e electric, gas, oil, or water [employer] threatened to shut off services in your [...] any time in the past 12 m [facility], were you homeless or living in a halfway (including now)? Patient declined 01/11/2024 EH IP Custom IPV Answer Date Recorded Do you feel UNSAFE in any of your personal relationships with your family members or any other acquaintances? No 2023 Comments No Sex and Gender Information Value Date Recorded Sex Assigned at Not on file Legal Sex Female 10:55 PM SERVICE LINE COORDINATOR Gender Identity Not on file Sexual Orientation Not on file Travel History Travel Start Travel End [place] 12/09/2023 01/09/2024 [place] 12/09/2023 01/09/2024 [place] 12/09/2023 01/09/2024 documented as of this encounter [...] on filedocumented in this encounter Care Teams Research Chemist Relationship Specialty Start Date End Date Virgen Arnold MD [facility] [address] [place] [address] PCP - General Internal Medicine 01/11/24 documented as of this encounter
--- OUTSIDE RECORDS SUMMARY | 2024-01-21 06:28 | XMS_ITS | Encounter Summary ---
Author Organization [facility] Address [address] [address] Phone Care Team Providers Care Contact Person Name Role Phone Virgen Arnold MD Primary Care Provider [phone]- [phone] Reason for Visit * Reason Onset Date Comments Pre-Procedure Call 01/09/2024 * Auth/Cert (Routine) Specialty Diagnoses / Procedures Referred By Tracy craig Referred To Contact Diagnoses Knee pain M25.569 Procedures TOTAL KNEE REPLACEMENT Left total knee arthroplasty Rachelle Blanco MD [facility] [address] [place] [address] Phone: tel: fax: Referral ID Status Reason Start Date Expiration Date Visits Re quested Visits Authorized [id number] 1 1 Encounter Details Date Type Department Care Team (Latest Contact Info) Description 01/11/2024 7:34 AM FUDGE CANDY MAKER - 01/12/2024 11:34 AM FUDGE CANDY MAKER Hospital Encounter [address] [id number] Rachelle Blanco MD [facility] [address] [place] [id number] S/P total knee arthroplasty, left (Primary Dx) Discharge Disposition: Home and/or Self Care Social History Tobacco Use Types Packs/Day Years Used Date Smoking Tobacco: Never Passive Smoke Exposure: Past Smokeless Tobacco: Never Tobacco Cessation:Counseling Given: No Alcohol Use Standard Drinks/Week Comments Not Currently 0 (1 standard drink = 0.6 oz pur e alcohol) [facility] Utilities Answer Date Recorded In the past [...] any time in the past 12 m [facility], were you homeless or living in a usp (including now)? Patient declined 01/11/2024 EH IP Custom IPV Answer Date Recorded Do you feel UNSAFE in any of your personal relationships with your family members or any other acquaintances? No 2023 Comments No Sex and Gender Information Value Date Recorded Sex Assigned at Not on file Legal Sex Female 10:55 PM FUDGE CANDY MAKER Gender Identity Not on file Sexual Orientation Not on file Travel History Travel Start Travel End [place] 12/09/2023 01/09/2024 [place] 12/09/2023 01/09/2024 [place] 12/09/2023 01/09/2024 documented as of this encounter Last Filed Vital Signs Vital Sign Reading Time Taken Comments Blood Pressure 115/56 01/12/2024 8:15 AM FUDGE CANDY MAKER Pulse 55 01/12/2024 8:15 AM FUDGE CANDY MAKER Temperature 36.4 ??C (97.6 ??F) 01/12/2024 8:15 AM CS T Respiratory Rate 16 01/12/2024 8:15 AM FUDGE CANDY MAKER Oxygen Saturation 99% 01/12/2024 8:15 AM FUDGE CANDY MAKER Inhaled Oxygen Concentration - - Weight 81.4 kg (179 lb 7.3 oz) 01/11/2024 7:45 A M FUDGE CANDY MAKER Height 160 cm (5' 3) 01/11/2024 7:45 AM FUDGE CANDY MAKER Body Mass Index 31.79 01/11/2024 7:45 AM FUDGE CANDY MAKER documented in this encounter Functional Status * Patient's Vision Adequate to Safely Complete Daily Activities Answer Date of Assessment Author Yes 01/11/2024 11:57 AM FUDGE CANDY MAKER Janneth Huntley RN * Patient's Memory Adequate to Safely Complete Daily Activities Answer Date of Assessment Author Yes 01/11/2024 11:57 AM FUDGE CANDY MAKER Janneth Huntley RN documented as of this encounter Mental Status * Patient's Judgment Adequate to Safely Complete Daily Activities Answer Entry Date Author Yes 01/11/2024 11:57 AM FUDGE CANDY MAKER Janneth Huntley RN documented in this encounter [...] Provider. Follow Up Instructions: Janneth Nichole PA-C [facility] [address] Skilled Services Certification/Face to Face encounter: Patient Name: Leticia Church : 1945 Maribell Gold PA-C [facility] E CANDY MAKER documented in this encounter Discharge Instructions * Appointments* Kimi Marshall RN - 01/12/2024 2:22 AM FUDGE CANDY MAKER Post-op appointment scheduled with Janneth Nichole PA-C on 01/25/24 at 1:15 pm at the [place] office E CANDY MAKER documented in this encounter Medications at Time [...] Means Destination Comment s Home and/or Self Group Home documented in this encounter Progress Notes * [...] end cane. The patient and their assistant softball coach was provided education and academic counselor on safe body mechanics and transfer [...] 61-90 Moderate Dependence 91-99 Slight Dependence 100 Richmond Score Prediction Less than 40 Unlikely to [...] to note. The patient and their assistant softball coach have been instructedon safe patient handling [...] Total Treatment Time: 30 minutes Gait Training (67592) = 15 minutes Therapeutic Exercise (58038) = 15 minutes E CANDY MAKER * Kelin Santana PA-C - 01/12/2024 9:34 [...] symptoms of active bleed. Monitor. HTN Continue PIPER HELPER lisionpril POD1 with hold parameters. Hold PIPER HELPER hydrochlorothiazide Takes atenolol in the evenings; will [...] Status: Full Code Kelin Santana PA-C Hospitalist E CANDY MAKER * Janneth Asif RN - 01/11/2024 11:48 AM CST Patient states she has taken ASA before and never had issues. Patient states she I'm fine takingAsprin after surgery to prevent blood clots. E CANDY MAKER * Kelin Santana PA-C - 01/11/2024 10:56 AM CST PROGRESS NOTE Date of Service: 01/11/2024 Subjective: POD 0 s/p LTKA Stable post op Patient denies headache, dizziness, LOC, syncope, presyncope, nausea, vomiting, abdominal pain, diarrhea, constipation, chest pain, shortness of breath, cough, fevers, chills. Reviewed Preop H&P. Reviewed Preop labs. 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 She typically [...] bowel regimen, anticoagulation and discharge. HTN Continue PIPER HELPER lisionpril POD1 with hold parameters. Hold PIPER HELPER hydrochlorothiazide Takes atenolol in the evenings; will [...] including nursing, social work and other consultants. E CANDY MAKER * Brina Davis RN - 01/02/2024 11:22 [...] Plan Outpatient Outpatient PT Plan Verified;Location (comment) ([place] [facility]) Length of Stay Plan reviewed;Overnight stay Gear Inspector name & phone number -Cherelle castañeda [phone] Will your assistant softball coach be the one picking you up [...] Pre-op H&P date 12/20/23 Pre-op H&P location [facility] How many stairs to enter your [...] surgical site contact [facility] provider. Patient and Gear Inspector verbalized understanding and readiness for discharge. Patient belonging identified, pt and assistant softball coach verbalize all belongings accounted for. Patient [...] & Skin Assessment flowsheet for intervention documentation. E CANDY MAKER * Op Note - Rachelle Blanco MD - 01/12/2024 9:00 AM CST Surgeon: Rachelle Blanco MD Lab Support Tech: ESTEFANY Hinojosa PA-C, skilled bacteriology research assistant, was required for retraction soft tissues, [...] clinic follow-up in 10 to 14 days. E CANDY MAKER * Care Plan - Marielena Fuchs RN [...] & Skin Assessment flowsheet for intervention documentation. E CANDY MAKER * Care Plan - Janneth Asif RN - 01/11/2024 6:05 PM CST End of Shift Summary and Plan of Care Procedure: POD0 from [facility]. Pain/Comfort: Highest pain rating was a [...] & Skin Assessment flowsheet for intervention documentation. E CANDY MAKER E CANDY MAKER * Rehab Evaluation - Lynda Duncan, PT [...] oxygen), migraine -s/p R TKA 2022 at [facility] Functional Level Prior to Admit: Patient independent [...] post operatively. Therapeutic Activity: Skilled therapeutic education, academic counselor and activity modification was providedto patient for the purpose and intent of improving functional mobility and activities of daily living. Therapist provided education regarding the following topics; Durable Medical Equipment- therapist provided skilled assessment and academic counselor throughout encounter regarding durable medical equipment [...] Time: 30 minutes Evaluation Moderate - Complexity (23250) Therapeutic Activities (22996) = 10 minutes Gait Training (64267) = 3 minutes Therapeutic Exercise (20759) = 5 minutes E CANDY MAKER * Plan of Care - Maribell Gold PA-C - 01/02/2024 11:25 AM CDT PREOPERATIVE ASSESSMENT NOTE Procedure(s): Left total knee arthroplasty Date of Surgery: 01/11/[address] Blanco Post-op appointment scheduled with Janneth Nichole PA-C on 01/25/24 at 1:15 pm at the [place] office Patient's goals after surgery: less pain Patient's concerns with upcoming surgery: none H&P Patient's pre-operative history and physical with their primary care physician was reviewed. From that, the following should be noted: -HTN, HLD, VICENTE (will bring CPAP, doesn't use oxygen), migraine -s/p R TKA at [facility] -Cleared for surgery per PCP. Patient does [...] time of discharge between 9:00AM-12:00PM with their belly dump driver arriving by 8:00 AM Adult Remedial Education Instructor: daughter or granddaughter Discharge location: daughter's home Anticipated Home Health Services: None Gear Inspector/Family member available after discharge: daughter (was not present for this discussion) Post-operative medication plan and education was discussed Patient's medication dosing and sig for the above medications to be determined post-operatively. In the event of a concern arising after surgery, the patient was provided with the following information: During business hours, call surgeon's career portals teacher, Elodia Diaz at [phone]. After business hours, call the on-call provider at [phone]. [facility] was discussed. They [...] Devices Page 17/51 They understand their assistant softball coach should bring their assistive device to [...] is not an outpatient pharmacy at the [facility] and they will need to pick up worker their post-operative medications at a pharmacy of [...] of surgery after arriving at the [facility] [place]. Avoiding a Delayed Surgery Page 10 I gave them this reference to use between now and surgery to avoid their surgery being delayed or cancelled. Maribell Gold PA-C [facility] documented in this encounter Plan of Treatment Not on file documented as of this encounter Procedures Procedure Name Priority Date/Time Associated Diagnosis Comments HEMOGLOBIN Routine 01/12/2024 5:44 AM FUDGE CANDY MAKER TOTAL KNEE REPLACEMENT 01/11/2024 9:27 AM FUDGE CANDY MAKER Knee pain M25.569 Case Notes Depuy attune -fixed Special Needs pt has sleep apnea and uses cpap allergic to nsaids -ibuprofen, naprosyn HEMOGLOBIN Routine 01/11/2024 7:55 AM FUDGE CANDY MAKER US ANES REFERENCE STAT 01/11/2024 7:4 6 AM FUDGE CANDY MAKER documented in this encounter Results * (ABNORMAL) HEMOGLOBIN (01/12/2024 5:44 AM FUDGE CANDY MAKER) HGB 9.9(L) 12.0 - 16.0 g/dl 01/12/2024 6:12 AM FUDGE CANDY MAKER [facility] Blood BLOOD SPECIMEN / Unknown Venipuncture / Unknown 01/12/2024 5:44 AM FUDGE CANDY MAKER 01/12/2024 5:57 AM FUDGE CANDY MAKER Janneth Nichole PA-C EC HEMATOLOGY ORDERABLES Final Result Performing Organization Address [facility] de Phone Number [facility] [address] [place] [address] * HEMOGLOBIN (01/11/2024 7:55 AM FUDGE CANDY MAKER) HGB 13.1 12.0 - 16.0 g/dl 01/11/2024 8:02 AM FUDGE CANDY MAKER [facility] Blood BLOOD SPECIMEN / Unknown Venipuncture / Unknown 01/11/2024 7:55 AM FUDGE CANDY MAKER 01/11/2024 7:58 AM FUDGE CANDY MAKER Rachelle Blanco MD EC HEMATOLOGY ORDERABLES Fi nal Result Performing Organization Address [facility] de Phone Number [facility] [address] [place] [address] * US ANES REFERENCE (01/11/2024 7:46 AM FUDGE CANDY MAKER) Narrative Wicho, User - 01/11/2024 7:46 AM FUDGE CANDY MAKER There is not a diagnostic result associated [...] Tue01/11/24 at 0800 Given 01/11/2024 8:30 AM FUDGE CANDY MAKER 1,000 mg acetaminophen (Tylenol) tablet 1,000 mg 1,000 mg, Oral, 3 TIMES DAILY, First dose on Tue01/11/24 at 1400, Until Discontinued Given 01/12/2024 8:21 AM FUDGE CANDY MAKER 1,000 mg Given 01/11/2024 8:23 PM FUDGE CANDY MAKER 1,000 mg Given 01/11/2024 1:31 PM FUDGE CANDY MAKER 1,000 mg aluminum-magnesium hydroxide (Maalox) oral suspension 30 mL 30 mL, Oral, EVERY 4 HOURS NEEDED, Starting on Tue01/11/24 at 1211, Until Yaz 01/12/24 at 1534, Heartburn aspirin EC tablet 81 mg 81 mg, Oral, 2 TIMES DAILY BREAKFAST AND SUPPER, First dose on Tue01/11/24 at 1800, Until Discontinued Given 01/12/2024 8:21 AM FUDGE CANDY MAKER 81 mg Given 01/11/2024 5:01 PM FUDGE CANDY MAKER 81 mg atorvaSTATin (Lipitor) tablet 10 mg 10 mg, Oral, AT BEDTIME, First dose on Tue01/11/24 at 2200, Until Discontinued Given 01/11/2024 8:26 PM FUDGE CANDY MAKER 10 mg bisacodyl (Dulcolax) suppository 10 mg 10 mg, Rectal, ONE TIME DAILY NEEDED, Starting on Tue01/11/24 at 1211, Until Tue01/12/24 at 1534, Constipation calcium carbonate (Tums) chewable tablet 500 mg 500 mg, Chew, 4 TIMES DAILY NEEDED, Starting on Tue01/11/24 at 1211, Until Yaz 01/12/24 at 1534, Heartburn ceFAZolin (ANCEF) 2 g in dextrose 4% IVPB 100 mL 2,000 mg, Intravenous, at 200 mL/hr, *EVERY 8 HOURS, 2 doses, First dose on Tue01/11/24 at 1700, Last dose on Tue01/12/24 at 0100, Indication? surgical prophylaxis New Bag 01/12/2024 1:24 AM FUDGE CANDY MAKER 2,000 mg 200 mL/hr New Bag 01/11/2024 5:01 PM FUDGE CANDY MAKER 2,000 mg 200 mL/hr ethyl alcohol nasal 62 % swab Nasal, ONCE, 1 dose, On Tue01/11/24 at 0800 Given 01/11/2024 8:[address] 1 Swab ethyl alcohol nasal 62 % swab Nasal, 2 TIMES DAILY, 10 doses, First dose on Tue01/11/24 at 2000, Last dose on Tue01/16/24 at 0800 Given 01/12/2024 8:21 AM FUDGE CANDY MAKER 1 Swab Given 01/11/2024 8:26 PM FUDGE CANDY MAKER 1 Swab fentaNYL (Sublimaze) injection 50-100 mcg 50-100 mcg, IV Push, ONCE, 1 dose, On Tue01/11/24 at 0800 Given 01/11/2024 8:55 AM FUDGE CANDY MAKER 75 mcg HYDROmorphone (Dilaudid) injection 0.25-0.5 mg 0.25-0.5 mg, IV Push, EVERY 2 HOURS NEEDED, Starting on Tue01/11/24 at 1211, Until Yaz 01/12/24 at 1534, Moderate Pain (4-6), Severe Pain (7-10) hydrOXYzine HCl (Atarax) tablet 10 mg 10 mg, Oral, EVERY 6 HOURS NEEDED, Starting on Tue01/11/24 at 1211, Until Tue01/12/24 at 1534, Other, Muscle Spasms Given 01/11/2024 4:14 PM FUDGE CANDY MAKER 10 mg lactated ringers BOLUS BAG 250 mL 250 mL, Intravenous, at 1,000 mL/hr, EVERY 30 MINUTES NEEDED, 2 doses, Starting on Tue01/11/24 at 1211, Until Yaz 01/12/24 at 1534 lactated ringers infusion 10-50 mL/hr, Intravenous, CONTINUOUS, Starting on Tue01/11/24 at 0800, Until Yaz 01/12/24 at 1535 Continued From PreOp-(Anes) 01/11/2024 9:27 AM FUDGE CANDY MAKER Restarted 01/11/2024 8:59 AM FUDGE CANDY MAKER New Bag 01/11/2024 8:39 AM FUDGE CANDY MAKER 10 mL/hr 10 mL/hr lactated ringers infusion [...] Tue01/11/24 at 1211, Until Tue01/12/24 at 1534, Respiratory Depression, Other, BIOINFORMATICS SPECIALIST depression ondansetron (Zofran ODT) disintegrating tablet 4 [...] 0900, Until Discontinued Given 01/12/2024 8:21 AM FUDGE CANDY MAKER 17 g pregabalin (Lyrica) capsule 75 mg 75 mg, Oral, ONCE, 1 dose, On Tue01/11/24 at 0800 Given 01/11/2024 8:30 AM FUDGE CANDY MAKER 75 mg prochlorperazine (COMPAZINE) injection 5 mg [...] Until Discontinued Given 01/12/2024 8:21 A M FUDGE CANDY MAKER 1 Tablet Given 01/11/2024 8:26 PM FUDGE CANDY MAKER 1 Tablet Given 01/11/2024 1:31 PM FUDGE CANDY MAKER 1 Tablet sodium chloride 0.9% IV FLUSH (NS) SYRINGE 5 mL 5 mL, IV Flush, EVERY 8 HOURS, First dose on Tue01/11/24 at 1400, Until Discontinued Given 01/11/2024 1:32 PM FUDGE CANDY MAKER 5 mL sodium chloride 0.9% IV FLUSH [...] Recently Administered Medications Times are shown in FUDGE CANDY MAKER. Scheduled Medication Order 01/10/2024 01/11/2024 01/12/2024 acetaminophen [...] (New Bag - Provider: Mame Hernandez APRN, SACK FILLER) ceFAZolin (ANCEF) 2 g in dextrose 4% [...] ONCE, 1 dose, On Tue01/11/24 at 0800 08 (Given - Provider: Yael Rosenberg RN) ethyl alcohol nasal 62 % swab Nasal, 2 TIMES DAILY, 10 doses, First dose on Tue01/11/24 at 2000, Last dose on Tue01/16/24 at 0800 2025 (Given - Provider: Marielena Fuchs RN) 08 (Given - Provider: Adri St, MANOJ) fentaNYL (Sublimaze) injection 50-100 mcg (COMPLETED) 50-100 mcg, IV Push, ONCE, 1 dose, On Tue01/11/24 at 0800 0855 (Given - Provider: Yael Rosenberg RN) lisinopril (Prinivil, Zestril) tablet 10 mg 10 mg, Oral, ONCE DAILY, First dose on Tue01/12/24 at 0800, Until Discontinued 0819 (Hold Single Do se - Provider: Adri St, RN - Reason: Order Parameters not met) polyethylene glycol 3350 (Glycolax, Miralax) packet 17 g 17 g, Oral, ONCE DAILY, First dose on Tue01/12/24 at 0900, Until Discontinued 08 (Given - Provid er: Adri St, RN)821 (Canceled Entry - Provider: Adri St, RN) pregabalin (Lyrica) capsule 75 mg (COMPLETED) 75 mg, Oral, ONCE, 1 dose, On Tue01/11/24 at 0800 0830 (Given - Provider: Yael Rosenberg, MANOJ) senna-docusate (Senokot-S) 8.6-50 MG per tablet 1 [...] (New Bag - Provider: Mame Hernandez APRN, SACK FILLER) tranexamic acid (Cyklokapron) 1000 mg in sodium chloride 0.7% 100 mL (premix) (COMPLETED) 1,000 mg, Intravenous, at 200 mL/hr, ONCE, 1 dose, On Tue01/11/24 at 0800 1015 (New Bag - Provider: Mame Hernandez APRN, CRNA) Continuous Medication Order 01/10/2024 01/11/2024 01/12/2024 lactated ringers infusion 10-50 mL/hr, Intravenous, CONTINUOUS, Starting on Tue01/11/24 at 0800, Until Yaz 01/12/24 at 1535 0839 (New Bag - Provider: Porfirio Rosenberg RN)0858 (Paused - Provider: Mame Hernandez APRN, CRNA - Comment: Switch to gravity)0859 (Restarted - Provider: Mame Hernandez APRN, CRNA)0927 (Continued From PreOp-(Anes) - Provider: Mame Hernandez [...] Yaz 01/12/24 at 1534, Respiratory Depression, Other, BIOINFORMATICS SPECIALIST depression ondansetron (Zofran ODT) disintegrating tablet 4 [...] 01/11/2024 documented in this encounter Care Teams Contact Person Relationship Specialty Start Date End Date Virgen Arnold MD [facility] [address] [place] [address] PCP - General Internal Medicine 01/11/24 documented as of this encounter
--- OUTSIDE RECORDS SUMMARY | 2024-01-21 06:28 | XMS_ITS | Encounter Summary ---
Author Organization [facility] Address [address] [address] Phone Care Team Providers Care Mercury Purifier Name Role Phone Virgen Arnold MD Primary Care Provider +1- [phone] Encounter Details Date Type Department Care Team (Late st Contact Info) Description 01/11/2024 7:50 AM STEEL SAMPLER Ancillary Procedure [facility] [address] [place] [address] Social History Tobacco Use Types Packs/Day Years Used Date Smoking Tobacco: Never Passive Smoke Exposure: Past Smokeless Tobacco: Never Alcohol Use Standard Drinks/Week Comments Not Currently 0 (1 standard drink = 0.6 oz pur e alcohol) [facility] Utilities Answer Date Recorded In [...] were you homeless or living in a long-term (including now)? Patient declined 01/11/2024 EH IP Custom IPV Answer Date Recorded Do you feel UNSAFE in any of your personal relationships with your family members or any other acquaintances? No 2023 Comments No Sex and Gender Information Value Date Recorded Sex Assigned at Not on file Legal Sex Female 10:55 PM STEEL SAMPLER Gender Identity Not on file Sexual Orientation Not on file Travel History Travel Start Travel End [place] 12/09/2023 01/09/2024 [place] 12/09/2023 01/09/2024 [place] 12/09/2023 01/09/2024 documented as of this encounter Functional Status * Patient's Vision Adequate to Safely Complete Daily Activities Answer Date of Assessment Author Yes 01/11/2024 11:57 AM STEEL SAMPLER Janneth Huntley RN * Patient's Memory Adequate to Safely Complete Daily Activities Answer Date of Assessment Author Yes 01/11/2024 11:57 AM STEEL SAMPLER Janneth Huntley RN documented as of this encounter Mental Status * Patient's Judgment Adequate to Safely Complete Daily Activities Answer Entry Date Author Yes 01/11/2024 11:57 AM STEEL SAMPLER Janneth Huntley RN documented in this encounter Plan of Treatment Not on file documented as of this encounter Procedures Procedure Name Priority Date/Time Associated Diagnosis Comments US ANES REFERENCE STAT 01/11/2024 7:4 6 AM STEEL SAMPLER documented in this encounter Results * US ANES REFERENCE (01/11/2024 7:46 AM STEEL SAMPLER) Narrative Lydia, User - 01/11/2024 7:46 AM STEEL SAMPLER There is not a diagnostic result associated [...] on filedocumented in this encounter Care Teams Mercury Purifier Relationship Specialty Start Date End Date Virgen Arnold MD [place] [id number] PCP - General Internal Medicine 01/11/24 documented as of this encounter
--- OUTSIDE RECORDS SUMMARY | 2024-01-21 06:29 | XMS_ITS | Encounter Summary ---
Author Organization [facility] Address [address] [address] Phone Care Team Providers Care Air Pollution Engineer Name Role Phone Virgen Arnold MD Primary Care Provider [phone] Reason for Visit * Reason Onset Date Comments Pre-Procedure Call 01/09/2024 * Auth/Cert (Routine) Specialty Diagnoses / Procedures Referred By Tracy craig Referred To Contact Diagnoses Knee pain M25.569 Procedures TOTAL KNEE REPLACEMENT Left total knee arthroplasty Rachelle Blanco MD [facility] [address] [place] [address] Phone: tel: fax: Referral ID Status Reason Start Date Expiration Date Visits Re quested Visits Authorized [id number] 1 1 Encounter Details Date Type Department Care Team (Late st Contact Info) Description 01/11/2024 9:20 AM CUTTING MACHINE TENDER - 01/11/2024 11:10 AM CUTTING MACHINE TENDER Surgery [facility] OR [address] [place] [phone] Rachelle Blanco MD [facility] [address] [place] [phone] Left total knee arthroplasty Surgery Details Date/Time Status Location OR Service Patient Class Case Class Case Type Trauma Case? 01/11/2024 9:20 AM Posted [facility] OR OR 03 Orthopedic AM Admit - Outpatient Panel 1 Procedure LRB Anes Op Region Wound Class Comments Left total knee arthroplasty Left Spinal Knee C lean Surgeon Surgeon Role Service Panel Rachelle Blanco MD Primary Orthopedic 1 Janneth Nichole PA-C Assisting Orthopedic 1 Case Notes Depuy attune -fixed Special Needs pt has sleep apnea and uses cpap allergic to nsaids -ibuprofen, naprosyn documented in this encounter Social History Tobacco Use Types Packs/Day Years Used Date Smoking Tobacco: Never Passive Smoke Exposure: Past Smokeless Tobacco: Never Tobacco Cessation:Counseling Given: No Alcohol Use Standard Drinks/Week Comments Not Currently 0 (1 standard drink = 0.6 oz pur e alcohol) [facility] Utilities Answer Date Recorded In the [...] any time in the past 12 [facility], were you homeless or living in a fci (including now)? Patient declined 01/11/2024 EH IP Custom IPV Answer Date Recorded Do you feel UNSAFE in any of your personal relationships with your family members or any other acquaintances? No 2023 Comments No Sex and Gender Information Value Date Recorded Sex Assigned at Not on file Legal Sex Female 10:55 PM CUTTING MACHINE TENDER Gender Identity Not on file Sexual Orientation Not on file Travel History Travel Start Travel End [place] 12/09/2023 01/09/2024 [place] 12/09/2023 01/09/2024 [place] 12/09/2023 01/09/2024 documented as of this encounter Last Filed Vital Signs Vital Sign Reading Time Taken Comments Blood Pressure 164/73 01/11/2024 11:05 AM CUTTING MACHINE TENDER Pulse 51 01/11/2024 11:05 AM CUTTING MACHINE TENDER Temperature 36.9 ??C (98.4 ??F) 01/11/2024 10:[address] Respiratory Rate 16 01/11/2024 11:05 AM CUTTING MACHINE TENDER Oxygen Saturation 98% 01/11/2024 11:05 AM CUTTING MACHINE TENDER Inhaled Oxygen Concentration - - Weight 81.4 kg (179 lb 7.3 oz) 01/11/2024 7:45 A M CUTTING MACHINE TENDER Height 160 cm (5' 3) 01/11/2024 7:45 AM CUTTING MACHINE TENDER Body Mass Index 31.79 01/11/2024 7:45 AM CUTTING MACHINE TENDER documented in this encounter Functional Status * Patient's Vision Adequate to Safely Complete Daily Activities Answer Date of Assessment Author Yes 01/11/2024 11:57 AM CUTTING MACHINE TENDER Janneth Huntley RN * Patient's Memory Adequate to Safely Complete Daily Activities Answer Date of Assessment Author Yes 01/11/2024 11:57 AM CUTTING MACHINE TENDER Janneth Huntley RN documented as of this encounter Mental Status * Patient's Judgment Adequate to Safely Complete Daily Activities Answer Entry Date Author Yes 01/11/2024 11:57 AM CUTTING MACHINE TENDER Janneth Huntley RN documented in this encounter [...] Provider. Follow Up Instructions: Janneth Nichole PA-C [facility] [address] Skilled Services Certification/Face to Face encounter: Patient Name: Leticia Church : 1945 Maribell Gold PA-C [facility] Rounder ING MACHINE TENDER documented in this encounter Discharge Instructions * Appointments* Kimi Marshall RN - 01/12/2024 2:22 AM CUTTING MACHINE TENDER Post-op appointment scheduled with Janneth Nichole PA-C on 01/25/24 at 1:15 pm at the [place] office ING MACHINE TENDER documented in this encounter Medications at Time [...] up to 30 days. 25 Tablet 01/11/2024 aspirin EC 81 MG tablet [...] up to 30 days. 25 Tablet 01/11/2024 documented in this encounter Discharge Disposition Disposition [...] single end cane. The patient and their head boys tennis coach was provided education and anger control counselor on safe body mechanics and transfer [...] 61-90 Moderate Dependence 91-99 Slight Dependence 100 Hill Score Prediction Less than 40 Unlikely to [...] concerns to note. The patient and their head boys tennis coach have been instructedon safe patient handling [...] Total Treatment Time: 30 minutes Gait Training (70201) = 15 minutes Therapeutic Exercise (46313) = 15 minutes ING MACHINE TENDER * Kelin Santana PA-C - 01/12/2024 9:34 [...] symptoms of active bleed. Monitor. HTN Continue OFFICE SWEEPER lisionpril POD1 with hold parameters. Hold OFFICE SWEEPER hydrochlorothiazide Takes atenolol in the evenings; will [...] Status: Full Code Kelin Santana PA-C Hospitalist ING MACHINE TENDER * Janneth Asif RN - 01/11/2024 11:48 AM CST Patient states she has taken ASA before and never had issues. Patient states she I'm fine takingAsprin after surgery to prevent blood clots. ING MACHINE TENDER * Kelin Santana PA-C - 01/11/2024 10:56 AM CST PROGRESS NOTE Date of Service: 01/11/2024 Subjective: POD 0 s/p LTKA Stable post op Patient denies headache, dizziness, LOC, syncope, presyncope, nausea, vomiting, abdominal pain, diarrhea, constipation, chest pain, shortness of breath, cough, fevers, chills. Reviewed Preop H&P. Reviewed Preop labs. 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 She typically [...] bowel regimen, anticoagulation and discharge. HTN Continue OFFICE SWEEPER lisionpril POD1 with hold parameters. Hold OFFICE SWEEPER hydrochlorothiazide Takes atenolol in the evenings; will [...] including nursing, social work and other consultants. ING MACHINE TENDER * Brina Davis, MANOJ - 01/02/2024 11:22 AM CDT 01/02/24 1100 [...] Plan Outpatient Outpatient PT Plan Verified;Location (comment) ([facility]) Length of Stay Plan reviewed;Overnight stay Coach Driver name & phone number Cherelle Rebollar [phone] Will your head boys tennis coach be the one picking you up [...] Pre-op H&P date 12/20/23 Pre-op H&P location [facility] How many stairs to enter your home? [...] surgical site contact [facility] provider. Patient and Coach Driver verbalized understanding and readiness for discharge. Patient belonging identified, pt and head boys tennis coach verbalize all belongings accounted for. Patient [...] & Skin Assessment flowsheet for intervention documentation. ING MACHINE TENDER * Op Note - Rachelle Blanco MD - 01/12/2024 9:00 AM CST Surgeon: Rachelle Blanco MD Manager Filter: ESTEFANY Hinojosa PA-C, skilled foundation assistant, was required for retraction soft tissues, [...] clinic follow-up in 10 to 14 days. ING MACHINE TENDER * Care Plan - Marielena Fuchs RN [...] & Skin Assessment flowsheet for intervention documentation. ING MACHINE TENDER * Care Plan - Janneth Asif RN - 01/11/2024 6:05 PM CST End of Shift Summary and Plan of Care Procedure: POD0 from [facility]. Pain/Comfort: Highest pain rating was [...] & Skin Assessment flowsheet for intervention documentation. ING MACHINE TENDER ING MACHINE TENDER * Rehab Evaluation - Lynda Duncan, PT [...] oxygen), migraine -s/p R TKA 2022 at [facility] Functional Level Prior to Admit: Patient independent [...] post operatively. Therapeutic Activity: Skilled therapeutic education, anger control counselor and activity modification was providedto patient for the purpose and intent of improving functional mobility and activities of daily living. Therapist provided education regarding the following topics; Durable Medical Equipment- therapist provided skilled assessment and anger control counselor throughout encounter regarding durable medical equipment [...] Time: 30 minutes Evaluation Moderate - Complexity (06876) Therapeutic Activities (33759) = 10 minutes Gait Training (45095) = 3 minutes Therapeutic Exercise (70831) = 5 minutes ING MACHINE TENDER * Plan of Care - Maribell Gold PA-C - 01/02/2024 11:25 AM CDT PREOPERATIVE ASSESSMENT NOTE Procedure(s): Left total knee arthroplasty Date of Surgery: 01/11/[address] Blanco Post-op appointment scheduled with Janneth Nichole PA-C on 01/25/24 at 1:15 pm at the [place] office Patient's goals after surgery: less pain Patient's concerns with upcoming surgery: none H&P Patient's pre-operative history and physical with their primary care physician was reviewed. From that, the following should be noted: -HTN, HLD, VICENTE (will bring CPAP, doesn't use oxygen), migraine -s/p R TKA at [facility] -Cleared for surgery per PCP. Patient does [...] time of discharge between 9:00AM-12:00PM with their team cdl driver arriving by 8:00 AM Feeder Associate: daughter or granddaughter Discharge location: daughter's home Anticipated Home Health Services: None Coach Driver/Family member available after discharge: daughter (was not present for this discussion) Post-operative medication plan and education was discussed Patient's medication dosing and sig for the above medications to be determined post-operatively. In the event of a concern arising after surgery, the patient was provided with the following information: During business hours, call surgeon's insurance healthcare representative, Elodia Diaz at [phone]. After business hours, call the on-call provider at [phone]. [facility] was discussed. They [...] Assistive Devices Page 17/51 They understand their head boys tennis coach should bring their assistive device to [...] is not an outpatient pharmacy at the [facility] and they will need to grape picker their post-operative medications at a pharmacy [...] of surgery after arriving at the [facility]. Avoiding a Delayed Surgery Page 10 I gave them this reference to use between now and surgery to avoid their surgery being delayed or cancelled. Maribell Gold PA-C [facility] documented in this encounter Plan of Treatment Not on file documented as of this encounter Procedures Procedure Name Priority Date/Time Associated Diagnosis Comments HEMOGLOBIN Routine 01/12/2024 5:44 AM CUTTING MACHINE TENDER TOTAL KNEE REPLACEMENT 01/11/2024 9:27 AM CUTTING MACHINE TENDER Knee pain M25.569 Case Notes Depuy attune -fixed Special Needs pt has sleep apnea and uses cpap allergic to nsaids -ibuprofen, naprosyn HEMOGLOBIN Routine 01/11/2024 7:55 AM CUTTING MACHINE TENDER US ANES REFERENCE STAT 01/11/2024 7:4 6 AM CUTTING MACHINE TENDER documented in this encounter Results * (ABNORMAL) HEMOGLOBIN (01/12/2024 5:44 AM CUTTING MACHINE TENDER) HGB 9.9(L) 12.0 - 16.0 g/dl 01/12/2024 6:12 AM CUTTING MACHINE TENDER [facility] Blood BLOOD SPECIMEN / Unknown Venipuncture / Unknown 01/12/2024 5:44 AM CUTTING MACHINE TENDER 01/12/2024 5:57 AM CUTTING MACHINE TENDER Janneth Nichole PA-C EC HEMATOLOGY ORDERABLES Final Result Performing Organization Address [facility] Phone Number [facility] [address] [place] [address] * HEMOGLOBIN (01/11/2024 7:55 AM CUTTING MACHINE TENDER) HGB 13.1 12.0 - 16.0 g/dl 01/11/2024 8:02 AM CUTTING MACHINE TENDER [facility] Blood BLOOD SPECIMEN / Unknown Venipuncture / Unknown 01/11/2024 7:55 AM CUTTING MACHINE TENDER 01/11/2024 7:58 AM CUTTING MACHINE TENDER Rachelle Blanco MD EC HEMATOLOGY ORDERABLES Fi nal Result Performing Organization Address [facility] Phone Number [address] [phone] * US ANES REFERENCE (01/11/2024 7:46 AM CUTTING MACHINE TENDER) Narrative Wicho, User - 01/11/2024 7:46 AM CUTTING MACHINE TENDER There is not a diagnostic result associated [...] Tue01/11/24 at 0800 Given 01/11/2024 8:30 AM CUTTING MACHINE TENDER 1,000 mg acetaminophen (Tylenol) tablet 1,000 mg 1,000 mg, Oral, 3 TIMES DAILY, First dose on Tue01/11/24 at 1400, Until Discontinued Given 01/12/2024 8:21 AM CUTTING MACHINE TENDER 1,000 mg Given 01/11/2024 8:23 PM CUTTING MACHINE TENDER 1,000 mg Given 01/11/2024 1:31 PM CUTTING MACHINE TENDER 1,000 mg aluminum-magnesium hydroxide (Maalox) oral suspension 30 mL 30 mL, Oral, EVERY 4 HOURS NEEDED, Starting on Tue01/11/24 at 1211, Until Tue01/12/24 at 1534, Heartburn aspirin EC tablet 81 mg 81 mg, Oral, 2 TIMES DAILY BREAKFAST AND SUPPER, First dose on Tue01/11/24 at 1800, Until Discontinued Given 01/12/2024 8:21 AM CUTTING MACHINE TENDER 81 mg Given 01/11/2024 5:01 PM CUTTING MACHINE TENDER 81 mg atorvaSTATin (Lipitor) tablet 10 mg 10 mg, Oral, AT BEDTIME, First dose on Tue01/11/24 at 2200, Until Discontinued Given 01/11/2024 8:26 PM CUTTING MACHINE TENDER 10 mg bisacodyl (Dulcolax) suppository 10 mg [...] surgical prophylaxis New Bag 01/12/2024 1:24 AM CUTTING MACHINE TENDER 2,000 mg 200 mL/hr New Bag 01/11/2024 5:01 PM CUTTING MACHINE TENDER 2,000 mg 200 mL/hr ethyl alcohol nasal 62 % swab Nasal, ONCE, 1 dose, On Tue01/11/24 at 0800 Given 01/11/2024 8:[address] 1 Swab ethyl alcohol nasal 62 % swab Nasal, 2 TIMES DAILY, 10 doses, First dose on Tue01/11/24 at 2000, Last dose on Tue01/16/24 at 0800 Given 01/12/2024 8:21 AM CUTTING MACHINE TENDER 1 Swab Given 01/11/2024 8:26 PM CUTTING MACHINE TENDER 1 Swab fentaNYL (Sublimaze) injection 50-100 mcg 50-100 mcg, IV Push, ONCE, 1 dose, On Tue01/11/24 at 0800 Given 01/11/2024 8:55 AM CUTTING MACHINE TENDER 75 mcg HYDROmorphone (Dilaudid) injection 0.25-0.5 mg 0.25-0.5 mg, IV Push, EVERY 2 HOURS NEEDED, Starting on Tue01/11/24 at 1211, Until Yaz 01/12/24 at 1534, Moderate Pain (4-6), Severe Pain (7-10) hydrOXYzine HCl (Atarax) tablet 10 mg 10 mg, Oral, EVERY 6 HOURS NEEDED, Starting on Tue01/11/24 at 1211, Until Yaz 01/12/24 at 1534, Other, Muscle Spasms Given 01/11/2024 4:14 PM CUTTING MACHINE TENDER 10 mg lactated ringers BOLUS BAG 250 mL 250 mL, Intravenous, at 1,000 mL/hr, EVERY 30 MINUTES NEEDED, 2 doses, Starting on Tue01/11/24 at 1211, Until Yaz 01/12/24 at 1534 lactated ringers infusion 10-50 mL/hr, Intravenous, CONTINUOUS, Starting on Tue01/11/24 at 0800, Until Yaz 01/12/24 at 1535 Continued From PreOp-(Anes) 01/11/2024 9:27 AM CUTTING MACHINE TENDER Restarted 01/11/2024 8:59 AM CUTTING MACHINE TENDER New Bag 01/11/2024 8:39 AM CUTTING MACHINE TENDER 10 mL/hr 10 mL/hr lactated ringers infusion [...] Until Tue01/12/24 at 1534, Respiratory Depression, Other, CAR CLEANING SUPERVISOR depression ondansetron (Zofran ODT) disintegrating tablet 4 [...] 0900, Until Discontinued Given 01/12/2024 8:21 AM CUTTING MACHINE TENDER 17 g pregabalin (Lyrica) capsule 75 mg 75 mg, Oral, ONCE, 1 dose, On Tue01/11/24 at 0800 Given 01/11/2024 8:30 AM CUTTING MACHINE TENDER 75 mg prochlorperazine (COMPAZINE) injection 5 mg 5 mg, IV Push, EVERY 6 HOURS NEEDED, Starting on Tue01/11/24 at 1211, Until Tue01/12/24 at 1534, Nausea, Vomiting prochlorperazine (Compazine) tablet 5 mg 5 mg, Oral, EVERY 6 HOURS NEEDED, Starting on Tue01/11/24 at 1211, Until Tue01/12/24 at 1534, Nausea, Vomiting ROPivacaine (Naropin) 300 mg, EPINEPHrine (Adrenalin) 0.6 mg, ketorolac (TORADOL) 15 mg in sodium chloride 0.9% (NS) 38.4 mL solution 100 mL, Infiltration, ONCE NEEDED, 1 dose, Starting on Tue01/11/24 at 0920, Until Tue01/11/24 at 1012, Other, field block Given 01/11/2024 10:12 AM CUTTING MACHINE TENDER Left Knee Joint senna-docusate (Senokot-S) 8.6-50 MG per tablet 1 Tablet 1 Tablet, Oral, 2 TIMES DAILY, First dose on Tue01/11/24 at 1300, Until Discontinued Given 01/12/2024 8:21 AM CUTTING MACHINE TENDER 1 Tablet Given 01/11/2024 8:26 PM CUTTING MACHINE TENDER 1 Tablet Given 01/11/2024 1:31 PM CUTTING MACHINE TENDER 1 Tablet sodium chloride 0.9% IV FLUSH (NS) SYRINGE 5 mL 5 mL, IV Flush, EVERY 8 HOURS, First dose on Tue01/11/24 at 1400, Until Discontinued Given 01/11/2024 1:32 PM CUTTING MACHINE TENDER 5 mL sodium chloride 0.9% IV FLUSH [...] Recently Administered Medications Times are shown in CUTTING MACHINE TENDER. Scheduled Medication Order 01/10/2024 01/11/2024 01/12/2024 acetaminophen (Tylenol) tablet 1,000 mg (COMPLETED) 1,000 mg, Oral, ONCE, 1 dose, On Tue01/11/24 at 0800 0830 (Given - Provider: Yael Rosenberg RN) acetaminophen (Tylenol) tablet 1,000 mg 1,000 mg, Oral, 3 TIMES DAILY, First dose on Tue01/11/24 at 1400, Until Discontinued 1331 (Given - Provider: Jenn Davenport RN)2022 (Given - Provider: Marielena Fuchs, MANOJ) 08 (Given - Provider: Adri St, MANOJ) aspirin EC tablet 81 mg 81 mg, Oral, 2 TIMES DAILY BREAKFAST AND SUPPER, First dose on Tue01/11/24 at 1800, Until Discontinued 1700 (Given - Provider: Janneth Asif RN) 820 (Given - Provider: Adri St, MANOJ) [...] (New Bag - Provider: Mame Hernandez APRN, SUPERVISOR COMPOUNDING AND FINISHING) ceFAZolin (ANCEF) 2 g in dextrose 4% IVPB 100 mL (COMPLETED) 2,000 mg, Intravenous, at 200 mL/hr, *EVERY 8 HOURS, 2 doses, First dose on Tue01/11/24 at 1700, Last dose on Tue01/12/24 at 0100, Indication? surgical prophylaxis 1701 (New Bag - Provider: Janneth Asif, MANOJ)1731 (Stopped - Provider: Janneth Asif RN) 0124 [...] Fuchs RN) 08 (Given - Provider: Adri St RN) fentaNYL [...] St RN)08 (Canceled Entry - Provider: Adri St RN) pregabalin (Lyrica) capsule 75 mg (COMPLETED) 75 mg, Oral, ONCE, 1 dose, On Tue01/11/24 at 0800 0830 (Given - Provider: Yael Rosenberg RN) senna-docusate (Senokot-S) 8.6-50 MG per tablet 1 Tablet 1 Tablet, Oral, 2 TIMES DAILY, First dose on Tue01/11/24 at 1300, Until Discontinued 1331 (Given - Provider: Jenn Davenport RN)2025 (Given - Provider: Marielena Fuchs RN) 0821 [...] 1211, Until Yaz 01/12/24 at 1534, Heartburn hydrALAZINE (Apresoline) tablet 25 [...] Yaz 01/12/24 at 1534, Other, Muscle Spasms 1614 (Given [...] Until Tue01/12/24 at 1534, Respiratory Depression, Other, CAR CLEANING SUPERVISOR depression ondansetron (Zofran ODT) disintegrating tablet 4 [...] NEEDED, Starting on Tue01/11/24 at 1211, Until [facility] 01/12/24 at 1534, Nausea, Vomiting documented in [...] 01/11/2024 documented in this encounter Care Teams Air Pollution Engineer Relationship Specialty Start Date End Date Virgen Arnold MD [facility] [address] [place] [address] PCP - General Internal Medicine 01/11/24 documented as of this encounter
--- OUTSIDE RECORDS SUMMARY | 2024-01-21 06:29 | XMS_ITS | Encounter Summary ---
Author Organization [facility] Address [address] [address] Phone Care Team Providers Care Professor Of Business Administration Name Role Phone Unavailable Primary Care Provider [...] on file Legal Sex Female 10:55 PM EDUCATION CONSULTANT Gender Identity Not on file Sexual Orientation Not on file Travel History Travel Start Travel End [place] 12/09/2023 01/09/2024 [place] 12/09/2023 01/09/2024 [place] 12/09/2023 01/09/2024 documented as of this encounter Plan of Treatment Not on file documented as of this encounter Visit Diagnoses Not on filedocumented in this encounter
--- OUTSIDE RECORDS SUMMARY | 2024-01-21 06:29 | XMS_ITS | Clinical Summary ---
Author Organization [facility] Address [place], [place] [address] Care Team Providers Care Gis Programmer Name Role Phone Polo Salvador MD Primary Care Provider [phone] Allergies Active Allergy Reactions Criticality Noted Date [...] T Respiratory Rate 16 02/13/2007 8:13 AM TELEGRAPH OFFICE ROUTE AIDE Oxygen Saturation 99% 12/04/2012 9:08 AM CDT [...] for age 65+ 11/06/2023 12/04/2012 Care Teams Gis Programmer Relationship Specialty Start Date End Date Polo Salvador MD [address] [place] [address] PCP - General 11/16/06
--- OUTSIDE RECORDS SUMMARY | 2024-01-21 06:29 | XMS_ITS | Encounter Summary ---
Author Organization [facility] Address [address] [address] Phone Care Team Providers Care Medical Technologist Clinical Name Role Phone Virgen Arnold MD Primary Care Provider [phone] Reason for Visit * Auth/Cert (Routine) Specialty Diagnoses / Procedures Referred By Tracy craig Referred To Contact Diagnoses Knee pain M25.569 Procedures TOTAL KNEE REPLACEMENT Left total knee arthroplasty Rachelle Blanco MD [facility] [address] [place] [address] Phone: tel:[phone] fax:[phone] Referral ID Status Reason Start Date Expiration Date Visits Re quested Visits Authorized [id number] 1 1 Encounter Details Date Type Department Care Team (Late st Contact Info) Description 01/11/2024 9:27 AM SEWER LINE PHOTO INSPECTOR Anesthesia Event [facility] OR [address] [place] [address] [phone] Polo Mills MD [address] [place] [address] [phone] Christian Benjamin DO [address] [place] [address] Anesthesia Record Procedure Summary Procedure Name Responsible [...] drink = 0.6 oz pur e alcohol) [facility] Utilities Answer Date Recorded In the past [...] any time in the past 12 m [facility], were you homeless or living in a penitentiary (including now)? Patient declined 01/11/2024 IP Custom IPV Answer Date Recorded Do you feel UNSAFE in any of your personal relationships with your family members or any other acquaintances? No 2023 Comments No Sex and Gender Information Value Date Recorded Sex Assigned at Not on file Legal Sex Female 10:55 PM SEWER LINE PHOTO INSPECTOR Gender Identity Not on file Sexual Orientation Not on file Travel History Travel Start Travel End [place] 12/09/2023 01/09/2024 [place] 12/09/2023 01/09/2024 [place] 12/09/2023 01/09/2024 documented as of this encounter Mental Status * Patient's Judgment Adequate to Safely Complete Daily Activities Answer Entry Date Author Yes 01/11/2024 11:57 AM SEWER LINE PHOTO INSPECTOR Janneth Huntley RN documented in this encounter OR Notes * Anesthesia Procedure Notes - Polo Mills MD - 01/11/2024 11:14 AM SEWER LINE PHOTO INSPECTOR Associated Order(s): Spinal Spinal Patient location during procedure: OR Reason for block: primary anesthetic Performed by: Polo Mills MD Authorized by: Polo Mills MD Preanesthetic Checklist Completed: patient identified, site marked, surgical consent, pre-op evaluation, timeout performed,IV checked, risks and benefits discussed and monitors and equipment checked Spinal Block Patient position: right lateral decubitus Prep: ChloraPrep Patient monitoring: heart rate, personnel monitor and continuous pulse ox Approach: right paramedian Location: L3-4 Needle Needle type: pencil-tip Needle gauge: 24 G Needle length: 3.5 in Medications Administered mepivacaine 2% PF(Carbocaine PF/Polocaine-MPF) preservative free injection - Intrathecal 2.5 mL - 01/11/2024 9:25:00 AM Assessment Sensory level: Adequate Events: cerebrospinal fluid Procedure assessment: patient tolerated procedure well with no immediate complications R LINE PHOTO INSPECTOR * Anesthesia Postprocedure Evaluation - Polo Mills MD - 01/11/2024 11:13 AM CST Procedure Summary Date: 01/11/24 Room / Location: [facility] OR [facility] OR Anesthesia Start: 926 Anesthesia Stop: 1046 [...] findings: dentition unchanged No notable events documented. R LINE PHOTO INSPECTOR * Anesthesia Preprocedure Evaluation - Polo Mills [...] is not DNR; Patient is not DNI; R LINE PHOTO INSPECTOR documented in this encounter Plan of Treatment Not on file documented as of this encounter Procedures Procedure Name Priority Date/Time Associated Diagnosis Comments ANESTHESIA BLOCK SPINAL 01/11/2024 11:14 AM SEWER LINE PHOTO INSPECTOR documented in this encounter Results * Spinal (01/11/2024 11:14 AM SEWER LINE PHOTO INSPECTOR) Narrative Polo Mills MD - 01/11/2024 11:14 AM SEWER LINE PHOTO INSPECTOR Polo Mills MD ? 01/11/2024 11:14 AM [...] decubitus Prep: ChloraPrep Patient monitoring: heart rate, personnel monitor and continuous pulse ox Approach: right [...] surgical prophylaxis New Bag 01/11/2024 9:28 AM SEWER LINE PHOTO INSPECTOR 2,000 mg dexAMETHasone (Decadron) injection IV Push, NEEDED, Starting on Tue01/11/24 at 0939, Until Tue01/11/24 at 1048 Given 01/11/2024 9:39 AM SEWER LINE PHOTO INSPECTOR 10 mg ePHEDrine sulfate injection IV Push, NEEDED, Starting on Tue01/11/24 at 0958, Until Tue01/11/24 at 1048 Given 01/11/2024 9:58 AM SEWER LINE PHOTO INSPECTOR 10 mg lactated ringers infusion 10-50 mL/hr, Intravenous, CONTINUOUS, Starting on Tue01/11/24 at 0800, Until Yaz 01/12/24 at 1535 Continued From PreOp-(Anes) 01/11/2024 9:27 AM SEWER LINE PHOTO INSPECTOR Restarted 01/11/2024 8:59 AM SEWER LINE PHOTO INSPECTOR New Bag 01/11/2024 8:39 AM SEWER LINE PHOTO INSPECTOR 10 mL/hr 10 mL/hr lidocaine (Xylocaine) 2 % injection IV Push, NEEDED, Starting on Tue01/11/24 at 0930, Until Tue01/11/24 at 1048 Given 01/11/2024 9:30 AM SEWER LINE PHOTO INSPECTOR 100 mg mepivacaine 2% PF (Carbocaine/Polocaine) injection Intrathecal, Starting on Tue01/11/24 at 0925, Until Tue01/11/24 at 1114 Given 01/11/2024 9:25 AM SEWER LINE PHOTO INSPECTOR 2.5 mL ondansetron (Zofran) injection IV Push, NEEDED, Starting on Tue01/11/24 at 0938, Until Tue01/11/24 at 1048 Given 01/11/2024 9:38 AM SEWER LINE PHOTO INSPECTOR 4 mg phenylephrine (Biorphen) 0.5 MG/5ML injection IV Push, NEEDED, Starting on Tue01/11/24 at 0940, Until Tue01/11/24 at 1048 Given 01/11/2024 10:20 AM SEWER LINE PHOTO INSPECTOR 100 mcg Given 01/11/2024 10:09 AM SEWER LINE PHOTO INSPECTOR 100 mcg Given 01/11/2024 9:53 AM SEWER LINE PHOTO INSPECTOR 100 mcg Given 01/11/2024 9:45 AM SEWER LINE PHOTO INSPECTOR 100 mcg Given 01/11/2024 9:40 AM SEWER LINE PHOTO INSPECTOR 100 mcg propofol (Diprivan) 200 MG/20ML injection Intravenous, CONTINUOUS INTRA-OP, Starting on Tue01/11/24 at 0931, Until Tue01/11/24 at 1048 Rate/Dose Change 01/11/2024 10:19 AM SEWER LINE PHOTO INSPECTOR 50 mcg/kg/min 24.42 mL/hr Rate/Dose Change 01/11/2024 10:13 AM SEWER LINE PHOTO INSPECTOR 75 mcg/kg/min 36. 63 mL/hr New Bag 01/11/2024 9:31 AM SEWER LINE PHOTO INSPECTOR 100 mcg/kg/min 48.84 mL/ hr Given 01/11/2024 9:30 AM SEWER LINE PHOTO INSPECTOR 40 mg tranexamic acid (Cyklokapron) 1000 mg in sodium chloride 0.7% 100 mL (premix) 1,000 mg, Intravenous, at 200 mL/hr, ONCE, 1 dose, On Tue01/11/24 at 0800 New Bag 01/11/2024 9:34 AM SEWER LINE PHOTO INSPECTOR 1,000 m g tranexamic acid (Cyklokapron) 1000 mg in sodium chloride 0.7% 100 mL (premix) 1,000 mg, Intravenous, at 200 mL/hr, ONCE, 1 dose, On Tue01/11/24 at 0800 New Bag 01/11/2024 10:15 AM SEWER LINE PHOTO INSPECTOR 1,000 mg documented in this encounter Care Teams Medical Technologist Clinical Relationship Specialty Start Date End Date Virgen Arnold MD [address] [address] PCP - General Internal Medicine 01/11/24 documented as of this encounter
== END 2024-01-16 18:51 | disposition home or self-care (01) ==
LOC: AMB 01-21 06:26
PROVIDERS: PCP Internal Medicine; Visit Provider Emergency Medicine Emergency Medical Services
DX: R06.02 Shortness of breath (principal); R42 Dizziness and giddiness
CPT/HCPCS: A0425; A0429

== ENCOUNTER 2024-01-16 19:34 | Emergency (ER) | payer MEDICARE, BC, SELFPAY ==
[2024-01-16 19:45] VITALS: BP 165/72; PULSE 71; RESP 16; TEMP 36.7; O2SAT 96; BMI 31.5
--- NOTE | 2024-01-16 20:21 | ED.DIZZY ---
HPI - Dizziness General Chief Complaint: Dizziness/Vertigo Stated Complaint: Dizzy Time Seen by Provider: 01/16/24 19:53 History of Present Illness HPI Narrative: This 78-year-old female comes in because of an episode of lightheadedness that occurred at home prior to arrival. She had a left total knee replacement surgery done within the last week. She does report a little bit of bleeding from the surgical wound into the bandage but not coming out from the bandage. She also has some bruising in her leg which is typical after such as surgery. Prior to surgery she did have a hemoglobin in the 10 range and did take some iron supplementation and her hemoglobin came up between 11 and 12. She states that she feels back to normal currently. She felt lightheaded at home when getting up. She sat back down but did not laid down. Family members noticed that she was looking pale at the time. She did laid down on a couch when ambulance arrived and her initial blood pressure was lower but she began to feel normal soon thereafter. Related Data Home Medications ?Medication ?Instructions ?Recorded ?Confirmed magnesium glycinate 4 mg PO QDAY 02/17/22 12/20/23 acetaminophen 500 mg tablet 500 mg PO Q6H PRN 04/26/22 12/20/23 (Tylenol Extra Strength) multivitamin (Multiple Vitamins 1 tab PO QDAY 04/26/22 12/20/23 tablet) calcium carbonate (Calcium 600) 600 mg PO QDAY 08/23/22 12/20/23 turmeric 400 mg capsule mg PO 12/06/22 12/20/23 Previous Rx's ?Medication ?Instructions ?Recorded atenolol 25 mg tablet 12.5 mg (1/2 x 25 mg) PO DAILY #45 02/21/23 tabs hydrochlorothiazide 25 mg tablet 25 - 50 mg (1 - 2 x 25 mg) PO 02/21/23 DAILY #120 tabs lisinopril 10 mg tablet 10 mg PO DAILY #90 tabs 02/21/23 simvastatin 20 mg tablet 20 mg PO HS #90 tabs 02/21/23 Allergies Allergy/AdvReac Type Severity Reaction Status Date / Time NSAIDS (Non-Steroidal Allergy Severe Hypertensio Verified 12/20/23 10:02 Anti-Inflamma n diphenhydramine Allergy Mild IV Verified 12/20/23 10:02 benadryl (chills, shaking) ibuprofen Allergy Unknown High blood Verified 12/20/23 10:02 pressure nabumetone (From Relafen) Allergy Hypertensio Verified 12/20/23 10:02 n Review of Systems Status of ROS: Reports: 10 or more systems reviewed and unremarkable except as noted in History and below Narrative: Constitutional: No fevers, no weight gain or loss. Eyes: No discharge. No vision changes. HENT: No congestion, no sore throat, no ear pain. Cardiovascular: No chest pain, no palpitations. Respiratory: No shortness of breath, no wheezes, no cough. Gastrointestinal: No abdominal pain, no vomiting, no diarrhea. Genitourinary: No dysuria, no hematuria. Musculoskeletal: Normal range of motion. Skin: No rashes, no pruritis. Neurological: No weakness, sensory change, speech change. Endo/Heme/Allergies: No bruising or bleeding. No polydipsia. Pysch: no suicidality, no anxiety, no insomnia. All other systems reviewed and are negative. PFSH PFS Surgical History (Updated 01/12/24 @ 12:59 by Virgen Arnold MD) History of total knee replacement (03/11/22) ?Z96.659 - Presence of unspecified artificial knee joint (ICD-10) S/P right knee arthroscopy (02/16/07) ?Z98.890 - Other specified postprocedural states (ICD-10) History of tonsillectomy and adenoidectomy (3) ?Z90.89 - Acquired absence of other organs (ICD-10) History of colonoscopy ?Z98.890 - Other specified postprocedural states (ICD-10) History of appendectomy (1989) ?Z90.49 - Acquired absence of other specified parts of digestive tract (ICD-10) Family History Father Hx of CABG Mother Cancer Brother Cancer Daughter Depression Father Stroke, Onset Age: 85 Social History Narrative: , 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, 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 Exercises daily, walking 3-5 M Non-smoker Rarely consumes alcohol What is your current living situation?: I presently have a place to live Problems where you live: pests, such as bugs, ants, or mice In the past 12 months, utilities in danger of being shut off: no In the past 12 mos, have been you worried that your food would run out before you had money to buy more?: never true In the past 12 mos, the food you bought just didn't last and you didn't have money to buy more?: never true Highest level of school completed/degree received: decline to answer Smoking Status: Never smoker Second hand tobacco smoke exposure: Yes How often do you have a drink containing alcohol: monthly or less Alcohol type: beer and wine How many standard drinks containing alcohol do you have on a typical day: 1 or 2 How often do you have six or more drinks on one occasion: Never AUDIT-C Alcohol total score: 1 Non-prescribed substance use: denies use Caffeine: Yes (tea- 2-3 cups/day, 1 12 oz can soda/day) How often does anyone, including family, friends and others, physically hurt you: never How often does anyone, including family, friends and others, insult or talk down to you: never How often does anyone, including family, friends and others, threaten you with harm: never How often does anyone, including family, friends and others, scream or curse at you: never Are you using contraception or practicing any form of control: No Health Related Social Needs: Inadequate housing (Z59.1) Exam Narrative: Exam Narrative: Constitutional: Well-developed, well-nourished, no acute distress. HEENT: Normocephalic, atraumatic. Neck: Normal range of motion. Nontender. Supple. Heart: Regular. No murmurs. Normal rate. Intact distal pulses. Lungs: Clear to auscultation. No chest discomfort. No wheezes, rhonchi, or rales. Abdomen: Normal bowel sounds. Nontender. No rebound tenderness. Genitalia: Deferred. Back: No midline tenderness. Normal range of motion. Extremities: Recent left knee surgery. The Jerry bandages were removed down to the basic bandage over the wound. There is no sign of active bleeding. She does have extensive bruising in her left lower extremity typically seen after such as surgery. Skin: Intact. No rash. Warm. No erythema or pallor. Neurologic: No altered sensation. No weakness. Alert and oriented. Psychiatric: No suicidality. No anxiety or depression. No insomnia. Nursing notes and vitals signs are reviewed. Const: Vital Signs, click to edit/add: Vital Signs - 24 hr 01/16/24 19:45 Temperature 98.1 F Pulse Rate [Pulse Oximeter] 71 Respiratory Rate 16 Blood Pressure [Ri ght Upper Arm] 165/72 H Pulse Oximetry 96 Oxygen Delivery Me thod Room Air Course Vital Signs Vital signs: Initial Vital Signs Temperature 98.1 F 01/16/24 19:45 Temperature Source Temporal Artery Scan 01/16/24 19:45 Pulse Rate 71 01/16/24 19:45 Respiratory Rate 16 01/16/24 19:45 Blood Pressure 165/72 H 01/16/24 19:45 Blood Pressure Mean 103 01/16/24 19:45 Blood Pressure Position Sitting 01/16/24 19:45 Pulse Oximetry 96 01/16/24 19:45 Oxygen Delivery Method Room Air 01/16/24 19:45 Vital Signs Temperature 98.1 F 01/16/24 19:45 Pulse Rate 71 01/16/24 19:45 Respiratory Rate 16 01/16/24 19:45 Blood Pressure 165/72 H 01/16/24 19:45 Pulse Oximetry 96 01/16/24 19:45 Oxygen Delivery Method Room Air 01/16/24 19:45 Temperature 98.1 F 01/16/24 19:45 Pulse Rate 71 01/16/24 19:45 Respiratory Rate 16 01/16/24 19:45 Blood Pressure 165/72 H 01/16/24 19:45 Pulse Oximetry 96 01/16/24 19:45 Oxygen Delivery Method Room Air 01/16/24 19:45 MDM - Dizziness MDM Narrative Medical decision making narrative: This patient arrives with normal vital signs and comes in for evaluation of a episode of lightheadedness. Her symptoms have completely resolved. I did review recent lab results. I did offer lab and imaging studies with the patient but in a process of shared decision making this was declined. She was able to get up and ambulate normally and is okay to be discharged home. Discharge Plan Discharge Clinical Impression: Episodic lightheadedness Patient Disposition: Home w/ Parent or Adult Condition: Improved Additional Instructions: Continue current plans. Follow up with MD as scheduled or return if symptoms are recurrent or worsening. Prescriptions: No Action turmeric 400 mg capsule PO lisinopril 10 mg tablet 10 mg PO DAILY Qty: 90 3RF atenolol 25 mg tablet 12.5 mg PO DAILY Qty: 45 3RF simvastatin 20 mg tablet 20 mg PO HS Qty: 90 3RF hydrochlorothiazide 25 mg tablet 25 - 50 mg PO DAILY Qty: 120 3RF Rx Instructions: Increase dose to 50 mg for 1-3 days as needed for edema. magnesium glycinate 100 mg magnesium capsule 4 mg PO QDAY multivitamin [Multiple Vitamins] Tablet 1 tab PO QDAY acetaminophen [Tylenol Extra Strength] 500 mg tablet 500 mg PO Q6H PRN calcium carbonate [Calcium 600] 600 mg calcium (1,500 mg) tablet 600 mg PO QDAY Follow Up/Referrals: Virgen Arnold MD [Primary Care Provider] - Stand Alone Forms: [facility] Inst[facility]
--- OUTSIDE RECORDS SUMMARY | 2024-01-16 20:34 | XMS_ITS | Clinical Summary ---
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
--- OUTSIDE RECORDS SUMMARY | 2024-01-16 20:34 | XMS_ITS | Encounter Summary ---
Author Organization [facility] Address [address] [address] Phone Care Team Providers Care Linseed Oil Press Tender Name Role Phone Unavailable Primary Care Provider Unavailabl e Encounter Details Date Type Department Care Team (Latest Contact Info) Description 01/09/2024 Travel Social History Tobacco Use Types Packs/Day Years Used Date Smoking Tobacco: Never Smokeless Tobacco: Never Alcohol Use Standard Drinks/Week Comments Not Currently 0 (1 standard drink = 0.6 oz pur e alcohol) IP Custom IPV Answer Date Recorded Do you feel UNSAFE in any of your personal relationships with your family members or any other acquaintances? 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
--- OUTSIDE RECORDS SUMMARY | 2024-01-16 20:34 | XMS_ITS | Encounter Summary ---
Author Organization [facility] Address [address] [address] Phone Care Team Providers Care Brim Setter Name Role Phone Virgen Arnold MD Primary Care Provider [phone] Reason for Visit * Reason Onset Date Comments Pre-Procedure Call 01/09/2024 * Auth/Cert (Routine) Specialty Diagnoses / Procedures Referred By Tracy craig Referred To Contact Diagnoses Knee pain M25.569 Procedures TOTAL KNEE REPLACEMENT Left total knee arthroplasty Rachelle Blanco MD [facility] [address] [place] [id number] Phone: tel: fax: Referral ID Status Reason Start Date Expiration Date Visits Re quested Visits Authorized [id number] 1 1 Encounter Details Date Type Department Care Team (Latest Contact Info) Description 01/11/2024 7:34 AM SENIOR RESERVATIONS AGENT - 01/12/2024 11:34 AM SENIOR RESERVATIONS AGENT Hospital Encounter [address] [id number] Rachelle Blanco MD [facility] [address] [place] [id number] S/P total knee arthroplasty, left (Primary Dx) Discharge Disposition: Home and/or Self Care Social History Tobacco Use Types Packs/Day Years Used Date Smoking Tobacco: Never Passive Smoke Exposure: Past Smokeless Tobacco: Never Tobacco Cessation:Counseling Given: No Alcohol Use Standard Drinks/Week Comments Not Currently 0 (1 standard drink = 0.6 oz pur e alcohol) [facility] Utilities Answer Date Recorded In the past 12 months has th e electric, gas, oil, or water company threatened to shut off services in your home? Patient declined 01/11/2024 Hunger Vital Sign Answer Date Recorded Within the past 12 months, y ou worried that your food would run out before you got the money to buy more. Patient declined Within the past 12 months, t he food you bought just didn't last and you didn't have money to get more. Patient declined 08/2023 PRAPARE - Transportation Answer Date Re corded In the past 12 months, has l ack of transportation kept you from medical appointments or from getting medications? Patient declined 01/11/2024 In the past 12 months, has l ack of transportation kept you from meetings, work, or from getting things needed for daily living? Patient declined 01/11/2024 Housing Stability Vital Sign Answer Cameron e Recorded In the last 12 months, was t here a time when you were not able to pay the mortgage or rent on time? Patient declined 01/11/20 24 In the past 12 months, how m any times have you moved where you were living? 0 01/11/2024 At any time in the past 12 m [facility], were you homeless or living in a longterm (including now)? Patient declined 01/11/2024 EH IP Custom IPV Answer Date Recorded Do you feel UNSAFE in any of your personal relationships with your family members or any other acquaintances? No 2023 Comments No Sex and Gender Information Value Date Recorded Sex Assigned at Not on file Legal Sex Female 10:55 PM SENIOR RESERVATIONS AGENT Gender Identity Not on file Sexual Orientation Not on file Travel History Travel Start Travel End [place] 12/09/2023 01/09/2024 [place] 12/09/2023 01/09/2024 [place] 12/09/2023 01/09/2024 documented as of this encounter Last Filed Vital Signs Vital Sign Reading Time Taken Comments Blood Pressure 115/56 01/12/2024 8:15 AM SENIOR RESERVATIONS AGENT Pulse 55 01/12/2024 8:15 AM SENIOR RESERVATIONS AGENT Temperature 36.4 ??C (97.6 ??F) 01/12/2024 8:15 AM CS T Respiratory Rate 16 01/12/2024 8:15 AM SENIOR RESERVATIONS AGENT Oxygen Saturation 99% 01/12/2024 8:15 AM SENIOR RESERVATIONS AGENT Inhaled Oxygen Concentration - - Weight 81.4 kg (179 lb 7.3 oz) 01/11/2024 7:45 A M SENIOR RESERVATIONS AGENT Height 160 cm (5' 3) 01/11/2024 7:45 AM SENIOR RESERVATIONS AGENT Body Mass Index 31.79 01/11/2024 7:45 AM SENIOR RESERVATIONS AGENT documented in this encounter Functional Status * Patient's Vision Adequate to Safely Complete Daily Activities Answer Date of Assessment Author Yes 01/11/2024 11:57 AM SENIOR RESERVATIONS AGENT Janneth Huntley RN * Patient's Memory Adequate to Safely Complete Daily Activities Answer Date of Assessment Author Yes 01/11/2024 11:57 AM SENIOR RESERVATIONS AGENT Janneth Huntley RN documented as of this encounter Mental Status * Patient's Judgment Adequate to Safely Complete Daily Activities Answer Entry Date Author Yes 01/11/2024 11:57 AM SENIOR RESERVATIONS AGENT Janneth Huntley RN documented in this encounter Discharge Summaries * Maribell Gold PA-C - 01/12/2024 8:00 AM CST Images from the original note were not included. HOSPITAL DISCHARGE SUMMARY Maribell Gold PA-C 01/12/2024 Patient Name: Leticia Church Date of : 1945 Age: [age] year old Primary Physician: Virgen Arnold MD Admitting Physician: Rachelle Blanco MD Admission Date: 01/11/2024 Discharging Physician: Maribell Gold PA-C Discharge Date: 01/12/24 Discharge Diagnoses: Principal Problem: S/P total knee arthroplasty, left Resolved Problems: * No resolved hospital problems. * Discharge Disposition: See Orders Hospital Course: Patient presents to the perioperative period after failing to manage their knee osteoarthritis. Risks, benefits, and complications were reviewed with the patient, they elected to proceed with the scheduled surgery. A total knee replacement was completed without complication. she was admitted to orthopedics where physical therapy and education was completed. Subjective: Patient is doing well today on POD #1. They have no nausea, vomiting, chest pain, lightheadedness or dizziness. They deny any numbness or paresthesias in their surgical lower extremity. They are ambulating in the hallways, tolerating oral intake, voiding and pain is controlled with oral medications. Using IS. VSS. Hgb 9.9 (11.9 pre-op). Their discharge medications were discussed at length. They understand they will be using multiple medications for pain control to be used together. We discussed their tylenol, Atarax and Oxycodone prescriptions for pain control on discharge. Senokot was also reviewed. Appropriate anticoagulation therapy was also discussed, including aspirin 81 mg twice daily x30 days. Their questions were answered, and dressing care instructions were clearly given. She will continue taking OTC Vitron-C and haveher hgb rechecked through her PCP in 1-2 weeks. Objective: Blood pressure 115/56, pulse 55, temperature 36.4 ??C (97.6 ??F), resp. rate 16, height 1.6 m (5' 3), weight 81.4 kg (179 lb 7.3 oz), SpO2 98%. The patient is A&Ox3. Appears comfortable, sitting up at bedside. Knee Aquacel dressing C/D/I without strikethrough. No surrounding erythema. Mild edema and ecchymosis. Sensation intact to light touch & equal bilaterally in the L2 through S1 dermatomes. ROM/Motor: Appropriately flexes & extends all toes bilaterally. Dorsiflexion & plantar flexion intact bilaterally. Bilateral calves soft and non-tender. Negative Yesenia's sign bilaterally. Palpable left dorsalis pedis and posterior tibial pulses. Brisk <2 sec capillary refill in the toes. Foot warm & well perfused. Labs: Lab Results Component Value Date HGB 9.9 01/12/2024 Lab Results Component Value Date CREAT 0.64 10/29/2011 Lab Results Component Value Date GFR >60 10/29/2011 Current Discharge Medication List New Prescriptions Details aspirin EC 81 MG tablet Dose: 81 mg 81 mg, Oral, 2 (two) times daily, Do not split or crush. hydrOXYzine HCl 10 MG tablet Commonly known as: Atarax Dose: 10 mg 10 mg, Oral, 4 TIMES DAILY NEEDED oxyCODONE 5 MG immediate release tablet Commonly known as: Roxicodone Dose: 5 mg 5 mg, Oral, EVERY 4 HOURS NEEDED senna-docusate 8.6-50 MG oral tablet Commonly known as: Senokot-S Dose: 1 Tablet 1 Tablet, Oral, 2 TIMES DAILY, Take to prevent constipation while taking oxycodone. Continued Details acetaminophen 500 MG tablet Commonly known as: Tylenol Dose: 500 mg 500 mg, EVERY 6 HOURS NEEDED atenolol 25 MG tablet Commonly known as: Tenormin Dose: 12.5 mg 12.5 mg, Oral, ONCE DAILY, hydroCHLOROthiazide 25 MG tablet Commonly known as: Hydrodiuril Dose: 25 mg 25 mg, ONCE DAILY lisinopril 20 MG tablet Commonly known as: Prinivil, Zestril Dose: 10 mg 10 mg, Oral, ONCE DAILY MAGNESIUM GLYCINATE OR Dose: 2 Tablet 2 Tablets, Oral, ONCE DAILY MULTIVITAMIN ADULT OR ONCE DAILY SIMVASTATIN OR Dose: 20 mg 20 mg, Oral, ONCE DAILY, SLEEP AID OR ONCE DAILY You might also be taking other medications not listed above. If you have questions about any of your other medications, talk to the person who prescribed them or your Primary Care Provider. Follow Up Instructions: Janneth Nichole PA-C [facility] [address] Skilled Services Certification/Face to Face encounter: Patient Name: Leticia Church : 1945 Maribell Gold PA-C [facility] OR RESERVATIONS AGENT documented in this encounter Discharge Instructions * Appointments* Kimi Marshall RN - 01/12/2024 2:22 AM SENIOR RESERVATIONS AGENT Post-op appointment scheduled with Janneth Nichole PA-C on 01/25/24 at 1:15 pm at the [place] office OR RESERVATIONS AGENT documented in this encounter Medications at Time of Discharge senna-docusate (Senokot-S) 8.6-50 MG oral tablet Take 1 Tablet by mouth two times a day. Take to prevent constipation while taking oxycodone. 30 Tablet 01/12/2024 Multiple Vitamin (MULTIVITAMIN ADULT OR) Take by mouth one time a day. acetaminophen (Tylenol) 500 MG tablet Take 500 mg by mouth every six hours as needed for Pain. Limit acetaminophen to 4000 mg per day from all sources. Doxylamine Succinate, Sleep, (SLEEP AID OR) Take by mouth one time a day. oxyCODONE (Roxicodone) 5 MG immediate release tablet Take 1 Tablet by mouth every four hours as needed for Pain for up to 30 days. 25 Tablet 01/11/2024 4 aspirin EC 81 MG tablet Take 1 Tablet by mouth 2 (two) times a day. Do not split or crush. 60 Tablet 01/11/2024 hydrOXYzine HCl (Atarax) 10 MG tablet Take 1 Tablet by mouth four times a day as needed for Itching. 45 Tablet 01/11/2024 lisinopril (Prinivil, Zestril) 20 MG tablet Take 10 mg by mouth one time a day. MAGNESIUM GLYCINATE OR Take 2 Tablets by mouth one time a day. atenolol (TENORMIN) 25 MG tablet Take 12.5 mg by mouth one time a day. hydrochlorothiaz stanislaw 25 MG tablet Take 25 mg by mouth one time a day. SIMVASTATIN OR Take 20 mg by mouth one time a day. documented as of this encounter Ordered Prescriptions Prescription Sig Dispense Quantity Refills Last Filled Start Date End Date senna-docusate (Senokot-S) 8.6-50 MG oral tablet Take 1 Tablet by mouth two times a day. Take to prevent constipation while taking oxycodone. 30 Tablet 01/12/2024 hydrOXYzine HCl (Atarax) 10 MG tablet Take 1 Tablet by mouth four times a day as needed for Itching. 45 Tablet 01/11/2024 aspirin EC 81 MG tablet Take 1 Tablet by mouth 2 (two) times a day. Do not split or crush. 60 Tablet 01/11/2024 oxyCODONE (Roxicodone) 5 MG immediate release tablet Take 1 Tablet by mouth every four hours as needed for Pain for up to 30 days. 25 Tablet 01/11/2024 4 documented in this encounter Discharge Disposition Disposition Code Departure Means Destination Comment s Home and/or Self Snf documented in this encounter Progress Notes * Lacy Dill, PT - 01/12/2024 9:43 AM CST PHYSICAL THERAPY ACUTE CARE DISCHARGE NOTE SUBJECTIVE Patient agreeable to participate with physical therapy. Pt's granddaughter present for session. Date of Admission: 01/11/2024 Pt is s/p on left TKA by Dr. Blanco Precautions: Weight Bearing:WBAT - Weight Bearing as Tolerated, left Lower extremity Pain: 1/10 at rest in L knee OBJECTIVE Cognition: Alert and Cooperative Functional Mobility Assessment: Supine to Sit: modified independence Sit to Supine: modified independence Sit<>Stand: modified independence Gait: Patient ambulated 300 ft with FWW and modified independence. With reciprocal pattern, tends to externally rotate L LE. Cues for posture. Stairs: The patient performs 6 stairs, ascend/descend with step to patterning post operatively to accommodate total joint replacement healing. They required SB assistance and unilateral hand rail andwith single end cane. The patient and their women's swim coach was provided education and residential counselor on safe body mechanics and transfer assistance for discharge planning. Tests and Measures: 10M WALK TEST: Patient's preferred gait speed is 11 seconds calculated from a distance of 10 meters. Gait speed: 26-50 sec = Household ambulator (gait speed 0.38 m/s-0.2 m/s) 25-12 sec = Limited community ambulators (gait speed of 0.4 to 0.83 m/s) 12.5-8 sec = Community ambulators (gait speed of 0.8-1.25 m/s) 7 sec or less = Able to safely cross the street (gait speed of 1.2 m/sec or greater) MODIFIED JAMAL INDEX: Self-Care Assessment MBI Score: 95/ 100 Indicating: capable, community living Score Interpretation 0-20 Total Dependence 21-60 Severe Dependence 61-90 Moderate Dependence 91-99 Slight Dependence 100 Cawood Score Prediction Less than 40 Unlikely to go Home Dependent in Mobility Dependent in Self Care 60 Pivotal score where patients move from dependency to assisted independence 60-80 If living alone will probably need a number of community services to cope More than 85 Likely to be discharged to community living Independent in transfers and able to walk or use wheelchair independently Strength/Range of Motion Assessment: Knee Range of Motion : Left Knee AROM Measured in supine and sitting position Flexion: 75?? Extension: 10?? Therapeutic Exercise/ Today's Treatment: Therapeutic Exercises: Patient participated in the following post operative total knee arthroplastyexercises with skilled instruction: supine ankle pumps, quad set with towel roll and hold 5 seconds, SLR, heel slide; seated knee extension, Seated AAROM knee flexion hold 5 seconds x 10 reps of each. supine knee extension stretch x 5 minutes. During exercises, PT observed and counseled on incisionsite for safety of healing w/ therapeutic exercise - no drainage or concerns. After completion of therapeutic exercise, therapist set patient up on elevating toes above nose and instructed patient on frequency, duration and positioning of elevation. The opportunity to ask questions was offered and satisfied. Vitals/Observations/Response to Treatment: No complaints of dizziness/lightheadedness No complaints or indications of shortness of breath Patient Education Provided: Barriers to Learning: None Education provided on fall avoidance in the shower, proper footwear, avoid tripping hazards (rugs);frequency of ambulation every 1-1.5 hours for 5 minutes with walker and icing every hour for 20-30 minutes during the day; proper positioning of the pillow to avoid knee flexion at rest; frequency ofHEP - 2x/day except the days that the patient attends outpatient PT then 1x/day; avoidance of over-doing activity; elevation on multiple pillows to decrease swelling. Patient verbalized and demonstrated good understanding Family verbalized good understanding. ASSESSMENT The patient demonstrates SBA with gait and transfers; safe performance and understanding of HEP, post op recommendations and precautions following TKA surgery on the left. Throughout visit, PT observed incision site for drainage- no concerns to note. The patient and their women's swim coach have been instructedon safe patient handling and mobility/DME recommendations for disposition. They have met their goals and will be discharge from PT at this time. Barrier to Discharge Home: No anticipated barriers PLAN OF CARE Recommendations for Discharge: Home with Outpatient Therapy Services Anticipated DME Needs for Discharge: patients has all necessary AD's Progress towards Goals: met Goals to be met by patient discharge: Patient will ambulate 120 + feet with SBA and appropriate assistive device Patient will demonstrate modified independence with bed and chair transfers with appropriate assistive device. Patient will demonstrate 3 stairs with CGA with appropriate assistive device and appropriate negotiation pattern. Patient will demonstrate safe understanding and carry out of HEP as indicated by PT. Interdisciplinary Communication: Treatment, goals, and plan of care discussed with care round team. Frequency of Physical Therapy Recommended: Discharge PT Total Treatment Time: 30 minutes Gait Training (12721) = 15 minutes Therapeutic Exercise (76184) = 15 minutes OR RESERVATIONS AGENT * Kelin Santana PA-C - 01/12/2024 9:34 AM CST PROGRESS NOTE Date of Service: 01/12/2024 Subjective: POD1 I have reviewed overnight events including nursing documentation, labs, vitals and imaging. Patient denies headache, dizziness, LOC, syncope, presyncope, nausea, vomiting, abdominal pain, diarrhea, constipation, chest pain, shortness of breath, cough, fevers, chills. Hemoglobin dropped. Discussed resumption of each home med. She is in good spirits, still experiencing the benefit of the block. Objective: Blood pressure 115/56, pulse 55, temperature 36.4 ??C (97.6 ??F), temperature source Temporal, resp. rate 16, height 1.6 m (5' 3), weight 81.4 kg (179 lb 7.3 oz), SpO2 99%. Const: NAD Eyes: PERRLA, EOMI HEENT: Normocephalic, atraumatic Neck: No cervical lymphadenopathy CV: RRR without murmur, rubs or gallops Lung: CTAB without wheezing, rales or rhonchi Abdomen: Soft, supple, nontender with positive bowel sounds no rebound or guarding Extremity: No lower extremity edema noted, no calf tenderness Neuro: Alert and orientated ??3, moves all 4 extremities Skin: No rashes, sores or abscesses I reviewed and interpreted the new labs. Recent Results (from the past 24 hours) HEMOGLOBIN Result Value Ref Range HGB 9.9 (L) 12.0 - 16.0 g/dl I personally reviewed the new imaging studies. Recent Results (from the past 24 hours) US ANES REFERENCE Narrative There is not a diagnostic result associated with the image(s). Please refer to either the Notes/Trans, Procedures, LDA or Anesthesia tab in the patients chart for clinical information the performing provider may have documented. The actual image(s) were acquired at the on . This order was placed into the system and automatically finalized on 01/11/2024. Hospital Summary: Leticia Church is a 78 year old female with significant medical problems including HTN, HLD, VICENTE, migraines who underwent LTKA on 01/11/[address] Blanco. Medicine consult requested for perioperative comanagement of medical comorbidities. Assessment/Plan: Active Hospital Problems 1S/P total knee arthroplasty, left Care per primary service, to include pain management, activity, bowel regimen, anticoagulation and discharge. ABLA Postoperative, expected. Vitally stable, no signs or symptoms of active bleed. Monitor. HTN Continue [employer] SALES REPRESENTATIVE lisionpril POD1 with hold parameters. Hold [employer] SALES REPRESENTATIVE hydrochlorothiazide Takes atenolol in the evenings; will hold this and she can resume POD1 in the evening at home. Hydralazine as needed for breakthrough HTN. HLD Continue statin Obstructive Sleep Apnea Patient instructed to bring home sleep device. History migraines Noted Obesity BMI>30 with associated comorbidities. Counseled lifestyle modifications. Advanced Age Patient with advanced age At risk for post op delirium Recommend judicious use of narcotic and antihistamine agents Rapid advancement to oral agents Ambulate Maintain day/night cycle as possible Prophylaxis Measures: per surgery Code Status: Full Code Kelin Santana PA-C Hospitalist OR RESERVATIONS AGENT * Janneth Asif RN - 01/11/2024 11:48 AM CST Patient states she has taken ASA before and never had issues. Patient states she I'm fine takingAsprin after surgery to prevent blood clots. OR RESERVATIONS AGENT * Kelin Santana PA-C - 01/11/2024 10:56 AM CST PROGRESS NOTE Date of Service: 01/11/2024 Subjective: POD 0 s/p LTKA Stable post op Patient denies headache, dizziness, LOC, syncope, presyncope, nausea, vomiting, abdominal pain, diarrhea, constipation, chest pain, shortness of breath, cough, fevers, chills. Reviewed Preop H&P. Reviewed Preop labs. 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 She typically takes atenolol in the evenings. Objective: Blood pressure (!) 152/71, pulse 63, temperature 36.9 ??C (98.4 ??F), temperature source Temporal, resp. rate 17, height 1.6 m (5' 3), weight 81.4 kg (179 lb 7.3 oz), SpO2 99%. Const: NAD Eyes: PERRLA, EOMI HEENT: Normocephalic, atraumatic Neck: No cervical lymphadenopathy CV: RRR without murmur, rubs or gallops Lung: CTAB without wheezing, rales or rhonchi Abdomen: Soft, supple, nontender with positive bowel sounds no rebound or guarding Extremity: No lower extremity edema noted, no calf tenderness Neuro: Alert and orientated ??3, moves all 4 extremities Skin: No rashes, sores or abscesses I reviewed and interpreted the new labs. Recent Results (from the past 24 hours) HEMOGLOBIN Result Value Ref Range HGB 13.1 12.0 - 16.0 g/dl I personally reviewed the new imaging studies. Recent Results (from the past 24 hours) US ANES REFERENCE Narrative There is not a diagnostic result associated with the image(s). Please refer to either the Notes/Trans, Procedures, LDA or Anesthesia tab in the patients chart for clinical information the performing provider may have documented. The actual image(s) were acquired at the on . This order was placed into the system and automatically finalized on 01/11/2024. Hospital Summary: Deirdre Church is a 78 year old female with significant medical problems including HTN, HLD,VICENTE, migraines who underwent LTKA on 01/11/[address] Blanco. Medicine consult requested for perioperative comanagement of medical comorbidities. Assessment/Plan: Active Hospital Problems 1S/P total knee arthroplasty, left Care per primary service, to include pain management, activity, bowel regimen, anticoagulation and discharge. HTN Continue [employer] SALES REPRESENTATIVE lisionpril POD1 with hold parameters. Hold [employer] SALES REPRESENTATIVE hydrochlorothiazide Takes atenolol in the evenings; will hold this and she can resume POD1 in the evening at home. Hydralazine as needed for breakthrough HTN. HLD Continue statin Obstructive Sleep Apnea Patient instructed to bring home sleep device. History migraines Noted Obesity BMI>30 with associated comorbidities. Counseled lifestyle modifications. Advanced Age Patient with advanced age At risk for post op delirium Recommend judicious use of narcotic and antihistamine agents Rapid advancement to oral agents Ambulate Maintain day/night cycle as possible Prophylaxis Measures: per surgery Code Status: Full Code Kelin Santana PA-C Hospitalist 50 minutes spent in care of the patient on 01/11/2024 including counseling of pt, coordination of care in chart review, discussion with interdisciplinary care team including nursing, social work and other consultants. OR RESERVATIONS AGENT * Brina Davis RN - 01/02/2024 11:22 AM CDT 01/02/24 1100 Pre-op Call Department Department [facility] Pre-op Call Schedule Pre-op H&P with PCP Completed Do you take a blood thinner? No Pre-op Education Completed Guidebook Received Pre-op Call Completed Previous Joint Surgery Yes Previous Joint Surgery Comment R TKA Urinary Health Questionaire Complete Female Questionnaire Discharge Plan Home Other Issues no antibodies or O2 use Will you have help at home? Yes Is your bathroom on the main level? No Are you currently using an assistive device? No PT Plan Outpatient Outpatient PT Plan Verified;Location (comment) ([facility]) Length of Stay Plan reviewed;Overnight stay Building Economist name & phone number -Cherelle castañeda [phone] Will your women's swim coach be the one picking you up from the hospital? Yes Do you have stairs to enter your home? Yes Is your bedroom on the main level? No Do you have a tub shower or walk-in shower? Tub shower How many blocks can you currently walk? 2+ blocks Do you have any assistive devices at home? Yes Do you have a CPAP? Yes What pain medications are you currently taking? Tylenol Pain Management Preferences No NSAIDs, renting ice machine Goal after surgery taking longer walks Concerns about surgery no Past post-op complications? Not applicable Are you diabetic? No Do you have a metal allergy? No Pre-op H&P date 12/20/23 Pre-op H&P location [facility] How many stairs to enter your home? 5 Is there a handrail on the stairs to enter your home? Yes How many steps to get to bedroom? 3 Is there a handrail on the stairs to your bedroom? Yes How many steps to get to bathroom? 3 Is there a handrail on the stairs to your bathroom? Yes What device(s) doyou have at home? walker Reminded to bring device to hospital Yes Reminded to bring CPAP to hospital Yes Urinary Health Questionnaire - Female Difficulty urinating after surgery No Have you had surgery on you bladder? No Do you leak urine (even small drops) wet yourself or wet your pads or undergarments? When you cough or sneeze? 2 When you bend down or lift something up? 0 When you walk quickly, jog or exercise 0 While you are undressing in order to use the toilet? 0 When you are at rest? 0 Do you get a need to urinate that you leak urine? 2 Do you have to steiner to the bathroom? 2 Total Urinary Health Score - Female 6 MARNI/TKA CHRONIC NARCOTIC USE Use of narcotics > 90 days at time of surgery? No documented in this encounter Miscellaneous Notes * Care Plan - Adri St RN - 01/12/2024 11:34 AM CST End of Shift Summary and Plan of Care Patient discharge education completed by RN. Plan to follow up with provider per after visit summary as scheduled. Any changes or concerns with the surgical site contact [facility] provider. Patient and Building Economist verbalized understanding and readiness for discharge. Patient belonging identified, pt and women's swim coach verbalize all belongings accounted for. Patient escorted to front door via Staxi (wheelchair) by RN/PCT per Policy. Goals/Plan for Shift Patient/Family stated goal for shift: Pain control, sleep and walk in [place]. Nursing goal for shift: discharge home Plan/Interventions to meet goal: Administer scheduled and PRN meds. Encourage fluids. Encourage ambulation when up. Goals per Patient Condition Fall Prevention Plan - Absence of falls. See Fall Risk flowsheet for intervention documentation. Skin Integrity - Skin intact and absence of new pressure injury. See Addy & Skin Assessment flowsheet for intervention documentation. OR RESERVATIONS AGENT * Op Note - Rachelle Blanco MD - 01/12/2024 9:00 AM CST Surgeon: Rachelle Blanco MD Domain Architect: ESTEFANY Hinojosa PA-C, skilled health information assistant, was required for retraction soft tissues, protection neurovascular structures, visualization, layered wound closure skin and patient transfer. Preoperative diagnosis: Left knee end-stage osteoarthritis Postoperative diagnosis: Left knee end-stage osteoarthritis Procedure: Total knee arthroplasty, left Implants: DePuy attune size 4 femur size 4 tibia size 8 Poly size 35 patellar button Indications: Patient is a 78-year-old woman with advanced end-stage osteoarthritis of her knee. Sheexhausted nonoperative measures. Risk, benefits, open alternatives were discussed. She like to proceed. Procedure: After informed consent was obtained, and operative site marked, an adductor canal block was administered by anesthesia in the preoperative holding suite. She is then brought to the operating room where spinal anesthetic and sedation were completed. Her left lower extremity was then position, prepped, and draped in usual sterile fashion. Surgical timeout taken. Distal her leg was exsanguinated andtourniquet insufflated to 2 and 50 mmHg. An anterior incision was made on the knee. Her skin was incised sharply through subcutaneous fat. An arthrotomy was created. Femoral intramedullary drill was used to find the canal and the canal based resecting guide was positioned the distal femoral articular surface was cut. Of marginal osteophytes were taken down. Sizing rotational alignment were then chosen and cutting jig secured. Anterior, posterior, and chamfer cuts were made. PCL flex sacrificing box cut was then completed. The tibia was then addressed. Correcting for coronal and sagittal sagittal alignment the articular surface was resected and the remainder of the menisci and cruciates were removed. Sizing rotational alignment were chosen trial femur was placed followed by soft tissue balancing and polyethylene selection. With the knee in extension, the articular surface of the patella was resected sized and punched. All trials were now in place. Final adjustments were made to balancing and implant selection. Upon conclusion, the knee was found to have full flexion, extension, and stability throughout the range of motion with normal patellar tracking. The bone ends were irrigated dried and prepared for final cementation. Final components were cemented into place. Particular local anesthetic was administered. A Betadine wash was completed. The arthrotomy was closed in partial flexion followed by a secondary check of range of motion stability and p atellar tracking. After final closure of wound in layers a sterile dressing was placed followed by the transferred the patient to PACU in stable condition Estimated blood loss: Minimal Complications: None Apparent Postoperative plan: She can bear weight as tolerated and has no range of motion restrictions. PT tostart postop day 0. Anticipate discharge home postop day 1 outpatient physical therapy and clinic follow-up in 10 to 14 days. OR RESERVATIONS AGENT * Care Plan - Marielena Fuchs RN - 01/12/2024 2:51 AM CST End of Shift Summary and Plan of Care Procedure(s): Left - Left total knee arthroplasty - Wound Class: Clean Surgeon(s): Rachelle Blanco MD Arceneaux, Megan L, PA-C 1 Day Post-Op Pain/Comfort: rated up to 4/10 this shift, discomfort not pain. No PRN's given. Removed kris, cast padding, ABD and adaptic then applied Aquacel Ag and EdemaWear. Able to feel NICE machine now. Rest, ice, repositioning and elevation for comfort. Assessment/Interventions: CMS: numbness in left knee, baseline numbness in right knee after RTKA two years ago. VSS, baseline bradycardia. Using CPAP. Activity: ambulated in hallway and bathroom with AX1, 2WW and GB. Tolerated well. Discharge Plan: home with daughter after PT. Goals/Plan for Shift Patient/Family stated goal for shift: Pain control, sleep and walk in [place]. Nursing goal for shift: Pain management, sleep, voiding well and ambulate in hallways. Plan/Interventions to meet goal: Administer scheduled and PRN meds. Encourage fluids. Encourage ambulation when up. Goals per Patient Condition Fall Prevention Plan - Absence of falls. See Fall Risk flowsheet for intervention documentation. Skin Integrity - Skin intact and absence of new pressure injury. See Addy & Skin Assessment flowsheet for intervention documentation. OR RESERVATIONS AGENT * Care Plan - Janneth Asif RN - 01/11/2024 6:05 PM CST End of Shift Summary and Plan of Care Procedure: POD0 from [facility]. Pain/Comfort: Highest pain rating was a 4/10. Scheduled medication administered; PRN atarax administered. Ice packs, passive ice machine, elevation, pillow support, repositioning, and ambulation utilized. Assessment/Interventions: patient reports some numbness to left knee cap/thigh but denies numbness,tingling or decreased sensation to bilat. feet. Patient has baseline numbness to outer right leg from previous surgery that she states is to baseline. Patient is voiding and tolerating diet. KRIS is C/D/I. Activity: up to chair, up to bathroom, ambulated in halls, and worked with PT. Assist of 1 with walker and gait belt. Discharge Plan: home with granddaughter after AM PT session. Goals/Plan for Shift Patient/Family stated goal for shift: pain control and walk Nursing goal for shift: pain control, walk, and IS use Plan/Interventions to meet goal: adminsiter scheduled and PRN pain medication, reminders to use IS every hour, and collaboration with PT Goals per Patient Condition Fall Prevention Plan - Absence of falls. See Fall Risk flowsheet for intervention documentation. Skin Integrity - Skin intact and absence of new pressure injury. See Addy & Skin Assessment flowsheet for intervention documentation. OR RESERVATIONS AGENT OR RESERVATIONS AGENT * Rehab Evaluation - Lynda Duncan, PT - 01/11/2024 1:55 PM CST PHYSICAL THERAPY ACUTE CARE ORTHOPEDIC EVALUATION (KNEE) Subjective Patient agreeable to participate with physical therapy. The patient is resting in bedside chair. She requests to go to the bathroom. Pleasant. Agreeable without concern. Admission Diagnosis: Knee pain M25.569 Treatment Diagnosis: Pain, decreased ROM/strength, and impaired mobility status post left TKA. Procedures/Diagnostics Affecting Therapy: Procedure(s): Left - Left total knee arthroplasty - Wound Class: Clean See chart. All relevant imaging, procedures, and diagnostics reviewed prior to PT evaluation. Pertinent PMHx: HTN, HLD, VICENTE (will bring CPAP, doesn't use oxygen), migraine -s/p R TKA [address] [facility] Functional Level Prior to Admit: Patient independent with all mobility and ADLs Mobility/ambulation: Limited by knee pain. Did not use AD prior to admit. No reported fall hx. Walks recreationally at baseline. Pain: Mild Precautions: WBAT on left lower extremity. Current Living Situation/Social History: Patient lives with daughter one level home with 3-4 stairsto enter with rail and with patient able to live on main level with bed and bath. Durable Medical Equipment Owned: Front wheeled walker Walking poles Patient's Goal(s): Less pain Objective Cognition: Alert , Oriented, and Cooperative Functional Mobility Assessment Supine to Sit: didn't attempt Sit to Supine: didn't attempt Bed Modification: Sit<>Stand: CGA and FWW. VC for push off from arm rests to improve sequencing. Mildly impulsive- cues to improve safety. Bed<>Chair: Gait: Patient ambulated 50 ft x 2 with FWW and CGA. Gait pattern: step through pattern. Cues to maintain JUNE within walker frame to improve balance. Cues for BUE depression on WW to offload painful weight acceptance and improve wicho. Stairs: N/T Tests and Measures: Motor/Sensation: Patient was able to elicit quad set, patient was able to elicit SLR with examination. Patient also demonstrates sensation of BLE WFL for initiation of mobility. Strength/Range of Motion Assessment: Knee Range of Motion : Left Knee AROM Measured in supine and sitting position Flexion: 80?? Extension: 0?? Therapeutic exercise: Therapeutic Exercises: Patient participated in the following post operative total knee arthroplasty exercises with skilled instruction: supine ankle pumps, quad set with towel roll and hold 5 seconds, SLR, heel slide; seated knee extension, Seated AAROM knee flexion hold 5 seconds x 5 reps of each. supine knee extension stretch x 5-10 minutes. After completion of therapeuticexercise, therapist set patient up on NICE machine w/ limb elevation for icing management post operatively. Therapeutic Activity: Skilled therapeutic education, residential counselor and activity modification was providedto patient for the purpose and intent of improving functional mobility and activities of daily living. Therapist provided education regarding the following topics; Durable Medical Equipment- therapist provided skilled assessment and residential counselor throughout encounter regarding durable medical equipment and assistive device training and appropriate sizing to accommodate patient body habitus to ensure safety of discharge planning. Toilet: Physical therapist provided assistance post operatively for safe negotiation and completionof toileting with education on appropriate transfer mechanics, post operative precaution/consideration and home education training. Pt required CGA assistance for safe carry out of task. Gait Training: The patient participates in gait training to improve functional mobility as it relates to ambulation. Therapist provided verbal cues to improve patient understanding and to address aforementioned impairments. The patient has fair tolerance this encounter, and required CGA assistance and FWW assistive device. Vitals/Observations/Response to Treatment: Stable throughout session No complaints of dizziness/lightheadedness No complaints or indications of shortness of breath BP: 155/78mmHg Patient/Caregiver Education: Education provided on fall avoidance within home and DME needs; frequency of ambulation every 1-1.5hours for 5 minutes with walker, icing every hour for 20- 30 minutes during the day; frequency of HEP - 2x/day, avoidance of over-doing activity; elevation on multiple pillows to decrease swelling after activity and safe coaching handling techniques for home discharge planning. Barriers to Learning: Pain Fatigue Evaluation, assessment, goals, and plan of care discussed with patient. The patient received written information, verbal information, and a demonstration. The opportunity to ask questions was offered. The patient verbalized and demonstrated willing understanding. Interdisciplinary Communication: Evaluation, goals, and plan of care discussed with care round team. Assessment/Plan Patient is a 78 year old female with pain, decreased ROM/Strength and impaired mobility status postleft TKA. Patient was limited by pain in Knee with mobility prior to surgery. Today, the patient has fair tolerance to physical therapy, and requires CGA assistance for mobility with use of FWW at this time. Throughout visit, PT observed incision site for drainage- no concerns to note. Patient is appropriate for skilled physical therapy services. Barriers to Discharge Home: No anticipated barriers PLAN OF CARE Recommendations for Discharge: Home with Outpatient Therapy Services Anticipated DME Needs for Discharge: patients has all necessary AD's Goals to be met by discharge from facility Goals to be met by patient discharge: Patient will ambulate 120 + feet with SBA and appropriate assistive device Patient will demonstrate SBA with bed and chair transfers with appropriate assistive device. Patient will demonstrate 3+ stairs with CGA with appropriate assistive device and appropriate negotiation pattern. Patient will demonstrate safe understanding and carry out of HEP as indicated by PT. Rehab Potential: Good Frequency of Physical Therapy Recommended: 1-2x follow up treatment until discharge Planned interventions may consist of any combination of the following: Therapeutic Exercise (strength/range of motion) Therapeutic Activities (transfer training/functional mobility) Gait Training Neuromuscular Re-education Manual Therapy Patient/Caregiver Education Home Exercise Program Self-Care/Home Management (ADL's) Duration of Services: Acute care Physical Therapy will continue until patient has met prior level of function, safety/independence, or is discharged from the facility. PT Total Treatment Time: 30 minutes Evaluation Moderate - Complexity (20416) Therapeutic Activities (29339) = 10 minutes Gait Training (86485) = 3 minutes Therapeutic Exercise (37093) = 5 minutes OR RESERVATIONS AGENT * Plan of Care - Maribell Gold PA-C - 01/02/2024 11:25 AM CDT PREOPERATIVE ASSESSMENT NOTE Procedure(s): Left total knee arthroplasty Date of Surgery: 01/11/[address] Blanco Post-op appointment scheduled with Janneth Nichole PA-C on 01/25/24 at 1:15 pm at the [place] office Patient's goals after surgery: less pain Patient's concerns with upcoming surgery: none H&P Patient's pre-operative history and physical with their primary care physician was reviewed. From that, the following should be noted: -HTN, HLD, VICENTE (will bring CPAP, doesn't use oxygen), migraine -s/p R TKA at [facility] -Cleared for surgery per PCP. Patient does meet criteria for hospitalist comanagement. Antibiotic use in last 14 days: no History of defibrillator or pacemaker? no Significant past medical history pertinent to surgery: See above. Denies prior history of anesthetic reactions, malignant hyperthermia or difficult intubation. Any history of antibodies in blood? No history of antibiodies. She does state that she cannot give platelets. She does not carry a card that states she has a blood antibody. History of DVT/PE or clotting disorder including Factor V Leiden? no DVT Prophylaxis Medication Plan: aspirin 81 mg twice daily x30 days Allergies were reviewed: NSAIDS-HTN Diphenydramine-chills, shaking nabumetone BMI: 31.7 Labs were reviewed and discussed, notably: 12/20/23 HGB: 11.9 (will start Vitron-C & continue through sgy) Cr: 0.7 GFR: 90 Glucose: 95 Hgb A1c: Na: 133 (Chronically low with baseline 129-137 due to chronic use of lisinopril & hydrochlorothiazide) K: 4.2 Prior to Admission Medications: Patient will continue the following medications: atenolol, simvastatin Patient will hold the following medications: hydrochlorothiazide, lisinopril They understand all vitamin supplements and herbal medications should be stopped 7 days prior to surgery. They understand they should not use any aspirin, aspirin-containing products, or anti-inflammatory medication for 7 days prior to surgery. They are able to continue to use Tylenol as needed up until the day before surgery. Guidebook reference to medications was given to patient (pages 7 & 19). Patient's code status was reviewed and is Full Code. Post-Operative Discharge Planning Patient agrees with: Anticipated discharge on post-op day 1 Anticipated time of discharge between 9:00AM-12:00PM with their cart driver arriving by 8:00 AM Retail Shift Leader: daughter or granddaughter Discharge location: daughter's home Anticipated Home Health Services: None Building Economist/Family member available after discharge: daughter (was not present for this discussion) Post-operative medication plan and education was discussed Patient's medication dosing and sig for the above medications to be determined post-operatively. In the event of a concern arising after surgery, the patient was provided with the following information: During business hours, call surgeon's child caregiver private home, Elodia Diaz at [phone]. After business hours, call the on-call provider at [phone]. [facility] was discussed. They were asked to first contact [facility] for continuity of care prior to going to another urgent care or ER for issues related to their surgery. They were instructed to go to the ER promptly for any medical emergency that may arise after discharge. Further education was provided to the patient on the following topics and corresponding page numbers from the guidebook were given: CHG Soap (Hibiclens, etc) Page 22 Patient will purchase soap prior to surgery. They will follow theinstructions for showering with the soap the night before surgery and the morning of surgery. Assistive Devices Page 17/51 They understand their women's swim coach should bring their assistive device to their inpatient room after surgery. If they do not have one, their therapist will dispense one as needed. Dental Appointments Page 12 We discussed holding off on any routine dental work for 3 months. Following that timeframe, the patient understands they will use antibiotics one hour prior to any dental work, this includes routine cleanings (Amoxicillin 500mg - 4 tablets)- x1 year. Anesthesia Page 24 The anesthesiologist will discuss the anesthesia care plan with the patient the day of surgery. Incision/Dressing Care Page 33/42 We discussed the type of dressing the patient can expect after surgery as well as how to care for it, how to recognize increased drainage or bleeding, as well as bathing after surgery. They understand that bruising is normal after total joint surgery and will migrate down their extremity in the week following surgery. Post-Op Medications Page 29, 32, 39-41, 54(knee) 56(hip) We discussed the patient's individualized post-operative medication plan and each medication was explained and questions were answered. Guidebook references were given. The patient will likely discharge home with the following medications, patient specific dosing willbe determined post-operatively: ASPIRIN - they understand this medication should not be combined with other medication containing aspirin products and will replace any other aspirin they may be taking. TYLENOL - this medication helps with pain. They will take Tylenol scheduled as long as they have pain. Most patients typically need this medication for 2-3 weeks but some may need it up to 6-8 weeks.Tylenol can be taking safely with the narcotic pain medication, anti-inflammatory, and aspirin. CELEBREX - this is an anti-inflammatory medication that will be taken as prescribed after surgery. They understand they will not take another anti- inflammatory while taking this medication. OXYCODONE - this is a narcotic pain medication and should be used sparingly but used as needed for pain. They understand this is the first of the medications used for pain that they should wean from.Most patients only need this medication for 1-2 weeks after surgery. We discussed titrating the narcotic based on their level of pain as follows: 1/2-1 tablet every 4-6 hours as needed for pain rating 3-6 (moderate pain) or 1-2 tablets every 4-6 hours as needed for pain rating 7- 10 (severe pain). This medication will not be used for pain rating <3 (mild pain). SENOKOT - this stool softener/laxative combination pill will be used after surgery as needed for constipation. 1-2 tablets can be taken as needed. VISTARIL - this medication can help with muscle spasms. It can be taking with other pain medicationbut it can make you drowsy so we discussed using cautiously. They understand there is not an outpatient pharmacy at the [facility] and they will need to health unit supervisor their post-operative medications at a pharmacy of their choice once they are discharged. Medication Refills Page 39 They understand it is best to allow at lest 48 hours for refills and that all refills can be requested through their pharmacy or directly with their surgeon's team. I did call out that any refills needed before the weekend will need to be submitted on . Pain Control Strategies Page 29 In addition to medication to control pain, we discussed non-medication strategies to helping with pain control and swelling (RICE). Icing and elevating often is extremely beneficial, we discussed a goal of 4-5 times a day for 20-30 minutes at a time. Swelling Page 31/35 Swelling will last at least 3-4 months and take a year to be as good as it's going to get. The operative side may never completely look the same as it did prior to surgery. It is normal for the swelling to cause stiffness in the morning and increase throughout the day with the most swelling being present in the evening. Swelling does go with gravity so the lower leg/arm or foot/hand will be swollen too. If swelling increases dramatically, this typically means your are being a little too active. Constipation Page 32/40 We discussed this is very common after surgery secondary to anesthesia, inactivity, and narcotic pain medication. In addition to the prescribed medication we discussed the useof Miralax, probiotics, prunes/prune juice, fiber rich diet, and hydration. In addition, increasingactivity as they are able will be helpful. They understand if they are having significant trouble they can try magnesium citrate, a suppository, or a Fleet enema. DVT Page 43 We discussed the signs, symptoms, and prophylactic treatment for DVTs post-operatively.We also discussed the importance of recognizing and reporting these symptoms. They understand they should call the office right away to report any concern for post-operative DVT. Activity Post-Operatively Page 35, 50(hip) 55(knee) The patient understands it is best to return to activity slowly and follow the instructions given to them by their surgeon's team. Having an active recovery and increasing activity as pain allows will also help reduce complications (pain, swelling, DVT, etc). General Day of Surgery Timeline Page 23 I briefly ran through what they can expect on the day of surgery after arriving at the [facility]. Avoiding a Delayed Surgery Page 10 I gave them this reference to use between now and surgery to avoid their surgery being delayed or cancelled. Maribell Gold PA-C [facility] [facility] documented in this encounter Plan of Treatment Not on file documented as of this encounter Procedures Procedure Name Priority Date/Time Associated Diagnosis Comments HEMOGLOBIN Routine 01/12/2024 5:44 AM SENIOR RESERVATIONS AGENT HEMOGLOBIN Routine 01/11/2024 7:55 AM SENIOR RESERVATIONS AGENT US ANES REFERENCE STAT 01/11/2024 7:4 6 AM SENIOR RESERVATIONS AGENT documented in this encounter Results * (ABNORMAL) HEMOGLOBIN (01/12/2024 5:44 AM SENIOR RESERVATIONS AGENT) HGB 9.9(L) 12.0 - 16.0 g/dl 01/12/2024 6:12 AM SENIOR RESERVATIONS AGENT [facility] Blood BLOOD SPECIMEN / Unknown Venipuncture / Unknown 01/12/2024 5:44 AM SENIOR RESERVATIONS AGENT 01/12/2024 5:57 AM SENIOR RESERVATIONS AGENT Janneth Nichole PA-C EC HEMATOLOGY ORDERABLES Final Result [facility] [address] [place] [address] * HEMOGLOBIN (01/11/2024 7:55 AM SENIOR RESERVATIONS AGENT) HGB 13.1 12.0 - 16.0 g/dl 01/11/2024 8:02 AM SENIOR RESERVATIONS AGENT [facility] Blood BLOOD SPECIMEN / Unknown Venipuncture / Unknown 01/11/2024 7:55 AM SENIOR RESERVATIONS AGENT 01/11/2024 7:58 AM SENIOR RESERVATIONS AGENT Rachelle Blanco MD EC HEMATOLOGY ORDERABLES Fi nal Result [facility] [address] [place] [address] * US ANES REFERENCE (01/11/2024 7:46 AM SENIOR RESERVATIONS AGENT) Narrative Wicho, User - 01/11/2024 7:46 AM SENIOR RESERVATIONS AGENT There is not a diagnostic result associated with the image(s). ??Please refer to either the Notes/Trans, Procedures, LDA or Anesthesia tab in the patients chart for clinical information the performing provider may have documented. The actual image(s) were acquired at the ?? on ??. This order was placed into the system and automatically finalized on 01/11/2024. Christian C Honl DO EC OS FILMS IMAGING ORDERABLES F inal Result documented in this encounter Visit Diagnoses Diagnosis S/P total knee arthroplasty, left- Primary S/P total knee arthroplasty, left documented in this encounter Administered Medications Inactive Administered Medications Medication Order MAR Action Action Date Dose Rate Site acetaminophen (Tylenol) tablet 1,000 mg 1,000 mg, Oral, ONCE, 1 dose, On Tue01/11/24 at 0800 Given 01/11/2024 8:30 AM SENIOR RESERVATIONS AGENT 1,000 mg acetaminophen (Tylenol) tablet 1,000 mg 1,000 mg, Oral, 3 TIMES DAILY, First dose on Tue01/11/24 at 1400, Until Discontinued Given 01/12/2024 8:21 AM SENIOR RESERVATIONS AGENT 1,000 mg Given 01/11/2024 8:23 PM SENIOR RESERVATIONS AGENT 1,000 mg Given 01/11/2024 1:31 PM SENIOR RESERVATIONS AGENT 1,000 mg aluminum-magnesium hydroxide (Maalox) oral suspension 30 mL 30 mL, Oral, EVERY 4 HOURS NEEDED, Starting on Tue01/11/24 at 1211, Until Tue01/12/24 at 1534, Heartburn aspirin EC tablet 81 mg 81 mg, Oral, 2 TIMES DAILY BREAKFAST AND SUPPER, First dose on Tue01/11/24 at 1800, Until Discontinued Given 01/12/2024 8:21 AM SENIOR RESERVATIONS AGENT 81 mg Given 01/11/2024 5:01 PM SENIOR RESERVATIONS AGENT 81 mg atorvaSTATin (Lipitor) tablet 10 mg 10 mg, Oral, AT BEDTIME, First dose on Tue01/11/24 at 2200, Until Discontinued Given 01/11/2024 8:26 PM SENIOR RESERVATIONS AGENT 10 mg bisacodyl (Dulcolax) suppository 10 mg 10 mg, Rectal, ONE TIME DAILY NEEDED, Starting on Tue01/11/24 at 1211, Until Tue01/12/24 at 1534, Constipation calcium carbonate (Tums) chewable tablet 500 mg 500 mg, Chew, 4 TIMES DAILY NEEDED, Starting on Tue01/11/24 at 1211, Until Tue01/12/24 at 1534, Heartburn ceFAZolin (ANCEF) 2 g in dextrose 4% IVPB 100 mL 2,000 mg, Intravenous, at 200 mL/hr, *EVERY 8 HOURS, 2 doses, First dose on Tue01/11/24 at 1700, Last dose on Tue01/12/24 at 0100, Indication? surgical prophylaxis New Bag 01/12/2024 1:24 AM SENIOR RESERVATIONS AGENT 2,000 mg 200 mL/hr New Bag 01/11/2024 5:01 PM SENIOR RESERVATIONS AGENT 2,000 mg 200 mL/hr ethyl alcohol nasal 62 % swab Nasal, ONCE, 1 dose, On Tue01/11/24 at 0800 Given 01/11/2024 8:[address] 1 Swab ethyl alcohol nasal 62 % swab Nasal, 2 TIMES DAILY, 10 doses, First dose on Tue01/11/24 at 2000, Last dose on Tue01/16/24 at 0800 Given 01/12/2024 8:21 AM SENIOR RESERVATIONS AGENT 1 Swab Given 01/11/2024 8:26 PM SENIOR RESERVATIONS AGENT 1 Swab fentaNYL (Sublimaze) injection 50-100 mcg 50-100 mcg, IV Push, ONCE, 1 dose, On Tue01/11/24 at 0800 Given 01/11/2024 8:55 AM SENIOR RESERVATIONS AGENT 75 mcg HYDROmorphone (Dilaudid) injection 0.25-0.5 mg 0.25-0.5 mg, IV Push, EVERY 2 HOURS NEEDED, Starting on Tue01/11/24 at 1211, Until Yaz 01/12/24 at 1534, Moderate Pain (4-6), Severe Pain (7-10) hydrOXYzine HCl (Atarax) tablet 10 mg 10 mg, Oral, EVERY 6 HOURS NEEDED, Starting on Tue01/11/24 at 1211, Until Tue01/12/24 at 1534, Other, Muscle Spasms Given 01/11/2024 4:14 PM SENIOR RESERVATIONS AGENT 10 mg lactated ringers BOLUS BAG 250 mL 250 mL, Intravenous, at 1,000 mL/hr, EVERY 30 MINUTES NEEDED, 2 doses, Starting on Tue01/11/24 at 1211, Until Yaz 01/12/24 at 1534 lactated ringers infusion 10-50 mL/hr, Intravenous, CONTINUOUS, Starting on Tue01/11/24 at 0800, Until Yaz 01/12/24 at 1535 Continued From PreOp-(Anes) 01/11/2024 9:27 AM SENIOR RESERVATIONS AGENT Restarted 01/11/2024 8:59 AM SENIOR RESERVATIONS AGENT New Bag 01/11/2024 8:39 AM SENIOR RESERVATIONS AGENT 10 mL/hr 10 mL/hr lactated ringers infusion Intravenous, at 100 mL/hr, CONTINUOUS, Starting on Tue01/11/24 at 1230, Until Yaz 01/12/24 at 1534 magnesium hydroxide (Milk of Magnesia) 400 MG/5ML suspension 30 mL 30 mL, Oral, ONE TIME DAILY NEEDED, Starting on Tue01/11/24 at 1211, Until Yaz 01/12/24 at 1534, Constipation melatonin tablet 3 mg 3 mg, Oral, AT BEDTIME NEEDED, Starting on Tue01/11/24 at 1211, Until Yaz 01/12/24 at 1534, Sleep naloxone (Narcan) injection 0.1 mg 0.1 mg, IV Push, EVERY 3 MINUTES NEEDED, Starting on Tue01/11/24 at 1211, Until Yaz 01/12/24 at 1534, Respiratory Depression, 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, 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 ondansetron (Zofran ODT) disintegrating tablet 4 mg 4 mg, Oral, EVERY 6 HOURS NEEDED, Starting on Tue01/11/24 at 1211, Until Tue01/12/24 at 1534, Nausea, Vomiting ondansetron (Zofran) injection 4 mg 4 mg, IV Push, EVERY 6 HOURS NEEDED, Starting on Tue01/11/24 at 1211, Until Tue01/12/24 at 1534, Nausea, Vomiting oxyCODONE (Roxicodone) immediate release tablet 2.5-5 mg 2.5-5 mg, Oral, EVERY 4 HOURS NEEDED, Starting on Tue01/11/24 at 1211, Until Tue01/12/24 at 1534, Moderate Pain (4-6), Severe Pain (7-10) polyethylene glycol 3350 (Glycolax, Miralax) packet 17 g 17 g, Oral, ONCE DAILY, First dose on Tue01/12/24 at 0900, Until Discontinued Given 01/12/2024 8:21 AM SENIOR RESERVATIONS AGENT 17 g pregabalin (Lyrica) capsule 75 mg 75 mg, Oral, ONCE, 1 dose, On Tue01/11/24 at 0800 Given 01/11/2024 8:30 AM SENIOR RESERVATIONS AGENT 75 mg prochlorperazine (COMPAZINE) injection 5 mg 5 mg, IV Push, EVERY 6 HOURS NEEDED, Starting on Tue01/11/24 at 1211, Until Tue01/12/24 at 1534, Nausea, Vomiting prochlorperazine (Compazine) tablet 5 mg 5 mg, Oral, EVERY 6 HOURS NEEDED, Starting on Tue01/11/24 at 1211, Until Tue01/12/24 at 1534, Nausea, Vomiting senna-docusate (Senokot-S) 8.6-50 MG per tablet 1 Tablet 1 Tablet, Oral, 2 TIMES DAILY, First dose on Tue01/11/24 at 1300, Until Discontinued Given 01/12/2024 8:21 A M SENIOR RESERVATIONS AGENT 1 Tablet Given 01/11/2024 8:26 PM SENIOR RESERVATIONS AGENT 1 Tablet Given 01/11/2024 1:31 PM SENIOR RESERVATIONS AGENT 1 Tablet sodium chloride 0.9% IV FLUSH (NS) SYRINGE 5 mL 5 mL, IV Flush, EVERY 8 HOURS, First dose on Tue01/11/24 at 1400, Until Discontinued Given 01/11/2024 1:32 PM SENIOR RESERVATIONS AGENT 5 mL sodium chloride 0.9% IV FLUSH (NS) SYRINGE 5 mL 5 mL, IV Flush, NEEDED, Starting on Tue01/11/24 at 1211, Until Yaz 01/12/24 at 1534, Other, IV Line Flushing sodium phosphate (Fleet) 7-19 GM/118ML enema 1 Enema 1 Enema, Rectal, ONE TIME DAILY NEEDED, Starting on Tue01/11/24 at 1211, Until Yaz 01/12/24 at 1534, Constipation, For constipation refractory to SENAKOT-S or DULCOLAX documented in this encounter Discontinued Medications Medication Sig Discontinue Reason Start Date End Da te aspirin (BABY ASPIRIN) 81 MG chewable tablet Chew and swallow 81 mg one time a day. Take with food. Deleted via home med review 01/09/2024 TURMERIC OR Take by mouth. Deleted via home med review 01/09/2024 documented as of this encounter Historical Medications * This list may reflect changes made after this encounter. Doxylamine Succinate, Sleep, (SLEEP AID OR) Take by mouth one time a day. acetaminophen (Tylenol) 500 MG tablet Take 500 mg by mouth every six hours as needed for Pain. Limit acetaminophen to 4000 mg per day from all sources. Multiple Vitamin (MULTIVITAMIN ADULT OR) Take by mouth one time a day. lisinopril (Prinivil, Zestril) 20 MG tablet Take 10 mg by mouth one time a day. MAGNESIUM GLYCINATE OR Take 2 Tablets by mouth one time a day. TURMERIC OR Take by mouth. added in this encounter Active and Recently Administered Medications Times are shown in SENIOR RESERVATIONS AGENT. Scheduled Medication Order 01/10/2024 01/11/2024 01/12/2024 acetaminophen (Tylenol) tablet 1,000 mg (COMPLETED) 1,000 mg, Oral, ONCE, 1 dose, On Tue01/11/24 at 0800 0830 (Given - Provider: Yael Rosenberg RN) acetaminophen (Tylenol) tablet 1,000 mg 1,000 mg, Oral, 3 TIMES DAILY, First dose on Tue01/11/24 at 1400, Until Discontinued 1331 (Given - Provider: Jenn Davenport RN)2022 (Given - Provider: Marielena Fuchs RN) 08 (Given - Provider: Adri St, RN) aspirin EC tablet 81 mg 81 mg, Oral, 2 TIMES DAILY BREAKFAST AND SUPPER, First dose on Tue01/11/24 at 1800, Until Discontinued 170 (Given - Provider: Janneth Asif RN) 08 (Given - Provider: Adri St, RN) atorvaSTATin (Lipitor) tablet 10 mg 10 mg, Oral, AT BEDTIME, First dose on Tue01/11/24 at 2200, Until Discontinued 2025 (Given - Provider: Marielena Fuchs RN) ceFAZolin (ANCEF) 2 g in dextrose 4% IVPB 100 mL (COMPLETED) 2,000 mg, Intravenous, at 200 mL/hr, ONCE, 1 dose, On Tue01/11/24 at 0800, Indication? surgical prophylaxis 09 (New Bag - Provider: Mame Hernandez APRN, RECREATION DIRECTOR) ceFAZolin (ANCEF) 2 g in dextrose 4% IVPB 100 mL (COMPLETED) 2,000 mg, Intravenous, at 200 mL/hr, *EVERY 8 HOURS, 2 doses, First dose on Tue01/11/24 at 1700, Last dose on Tue01/12/24 at 0100, Indication? surgical prophylaxis 170 (New Bag - Provider: Janneth Asif RN)1731 (Stopped - Provider: Janneth Asif RN) 0124 (New Bag - Provider: Marielena Fuchs RN)0154 (Stopped - Provider: Marielena Fuchs RN) ethyl alcohol nasal 62 % swab (COMPLETED) Nasal, ONCE, 1 dose, On Tue01/11/24 at 0800 0829 (Given - Provider: Yael Rosenberg, MANOJ) ethyl alcohol nasal 62 % swab Nasal, 2 TIMES DAILY, 10 doses, First dose on Tue01/11/24 at 2000, Last dose on Tue01/16/24 at 0800 2025 (Given - Provider: Marielena Fuchs RN) 08 (Given - Provider: Adri St, RN) fentaNYL (Sublimaze) injection 50-100 mcg (COMPLETED) 50-100 mcg, IV Push, ONCE, 1 dose, On Tue01/11/24 at 0800 0855 (Given - Provider: Yael RosenbergMANOJ) lisinopril (Prinivil, Zestril) tablet 10 mg 10 mg, Oral, ONCE DAILY, First dose on Tue01/12/24 at 0800, Until Discontinued 08 (Hold Single Do se - Provider: Adri St RN - Reason: Order Parameters not met) polyethylene glycol 3350 (Glycolax, Miralax) packet 17 g 17 g, Oral, ONCE DAILY, First dose on Tue01/12/24 at 0900, Until Discontinued 08 (Given - Provid er: Adri St RN)08 (Canceled Entry - Provider: Adri St, RN) pregabalin (Lyrica) capsule 75 mg (COMPLETED) 75 mg, Oral, ONCE, 1 dose, On Tue01/11/24 at 0800 0830 (Given - Provider: Yael Rosenberg RN) senna-docusate (Senokot-S) 8.6-50 MG per tablet 1 Tablet 1 Tablet, Oral, 2 TIMES DAILY, First dose on Tue01/11/24 at 1300, Until Discontinued 1331 (Given - Provider: Jenn Davenport RN)2026 (Given - Provider: Marielena Fuchs, MANOJ) 0821 (Given - Provider: Adri St, MANOJ) sodium chloride 0.9% IV FLUSH (NS) SYRINGE 5 mL 5 mL, IV Flush, EVERY 8 HOURS, First dose on Tue01/11/24 at 1400, Until Discontinued 1332 (Given - Provider: Jenn Davenport RN) 0241 (Not Given - Provider: Marielena Fuchs RN - Reason: Loss of IV access)0600 (Hold Single Dose - Provider: Marielena Fuchs RN - Reason: Loss of IV access) tranexamic acid (Cyklokapron) 1000 mg in sodium chloride 0.7% 100 mL (premix) (COMPLETED) 1,000 mg, Intravenous, at 200 mL/hr, ONCE, 1 dose, On Tue01/11/24 at 0800 0934 (New Bag - Provider: Mame Hernandez APRN, RECREATION DIRECTOR) tranexamic acid (Cyklokapron) 1000 mg in sodium chloride 0.7% 100 mL (premix) (COMPLETED) 1,000 mg, Intravenous, at 200 mL/hr, ONCE, 1 dose, On Tue01/11/24 at 0800 1015 (New Bag - Provider: Mame Hernandez APRN, ELY) Continuous Medication Order 01/10/2024 01/11/2024 01/12/2024 lactated ringers infusion 10-50 mL/hr, Intravenous, CONTINUOUS, Starting on Tue01/11/24 at 0800, Until Yaz 01/12/24 at 1535 0839 (New Bag - Provider: Porfirio Rosenberg RN)0858 (Paused - Provider: Mame Hernandez APRN, ELY - Comment: Switch to gravity)0859 (Restarted - Provider: Mame Hernandez APRN, ELY)0927 (Continued From PreOp-(Anes) - Provider: Mame Hernandez APRN, ELY)1039 (Anesthesia Volume Adjusted - Provider: Mame Hernandez APRN, ELY)1134 (Stopped - Provider: Hawa Gold RN) lactated ringers infusion Intravenous, at 100 mL/hr, CONTINUOUS, Starting on Tue01/11/24 at 1230, Until Yaz 01/12/24 at 1534 1150 (Not Given - Provider: Janneth Asif RN - Reason: Provider Order) PRN Medication Order 01/10/2024 01/11/2024 01/12/2024 aluminum-magnesium hydroxide (Maalox) oral suspension 30 mL 30 mL, Oral, EVERY 4 HOURS NEEDED, Starting on Tue01/11/24 at 1211, Until Yaz 01/12/24 at 1534, Heartburn benzocaine-menthol 15-2.6 MG Lozenge 1 Lozenge 1 Lozenge, Mouth/Throat, NEEDED, Starting on Tue01/11/24 at 1211, Until Yaz 01/12/24 at 1534, Other, throat discomfort bisacodyl (Dulcolax) suppository 10 mg 10 mg, Rectal, ONE TIME DAILY NEEDED, Starting on Tue01/11/24 at 1211, Until Yaz 01/12/24 at 1534, Constipation calcium carbonate (Tums) chewable tablet 500 mg 500 mg, Chew, 4 TIMES DAILY NEEDED, Starting on Tue01/11/24 at 1211, Until Yaz 01/12/24 at 1534, Heartburn calcium carbonate (Tums) chewable tablet 500-1,000 mg 500-1,000 mg, Chew, NEEDED, Starting on Tue01/11/24 at 1211, Until Tue01/12/24 at 1534, Heartburn hydrALAZINE (Apresoline) tablet 25 mg 25 mg, Oral, EVERY 6 HOURS NEEDED, Starting on Tue01/11/24 at 1211, Until Yaz 01/12/24 at 1534, For SBP greater than 170, DBP greater than 100 HYDROmorphone (Dilaudid) injection 0.25-0.5 mg 0.25-0.5 mg, IV Push, EVERY 2 HOURS NEEDED, Starting on Tue01/11/24 at 1211, Until Tue01/12/24 at 1534, Moderate Pain (4-6), Severe Pain (7-10) hydrOXYzine HCl (Atarax) tablet 10 mg 10 mg, Oral, EVERY 6 HOURS NEEDED, Starting on Tue01/11/24 at 1211, Until Tue01/12/24 at 1534, Other, Muscle Spasms 1614 (Given - Provider: Migel Asif RN) lactated ringers BOLUS BAG 250 mL 250 mL, Intravenous, at 1,000 mL/hr, EVERY 30 MINUTES NEEDED, 2 doses, Starting on Tue01/11/24 at 1211, Until Yaz 01/12/24 at 1534 magnesium hydroxide (Milk of Magnesia) 400 MG/5ML suspension 30 mL 30 mL, Oral, ONE TIME DAILY NEEDED, Starting on Tue01/11/24 at 1211, Until Tue01/12/24 at 1534, Constipation melatonin tablet 3 mg 3 mg, Oral, AT BEDTIME NEEDED, Starting on Tue01/11/24 at 1211, Until Yaz 01/12/24 at 1534, Sleep melatonin tablet 6 mg 6 mg, Oral, AT BEDTIME NEEDED, Starting on Tue01/11/24 at 1211, Until Yaz 01/12/24 at 1534, Sleep naloxone (Narcan) injection 0.1 mg 0.1 mg, IV Push, EVERY 3 MINUTES NEEDED, Starting on Tue01/11/24 at 1211, Until Yaz 01/12/24 at 1534, Respiratory 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, 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, 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 ondansetron (Zofran ODT) disintegrating tablet 4 mg(Linked Group 1) 4 mg, Oral, EVERY 6 HOURS NEEDED, Starting on Tue01/11/24 at 1211, Until Tue01/12/24 at 1534, Nausea, Vomiting ondansetron (Zofran) injection 4 mg(Linked Group 1) 4 mg, IV Push, EVERY 6 HOURS NEEDED, Starting on Tue01/11/24 at 1211, Until Yaz 01/12/24 at 1534, Nausea, Vomiting oxyCODONE (Roxicodone) immediate release tablet 2.5-5 mg 2.5-5 mg, Oral, EVERY 4 HOURS NEEDED, Starting on Tue01/11/24 at 1211, Until Yaz 01/12/24 at 1534, Moderate Pain (4-6), Severe Pain (7-10) prochlorperazine (COMPAZINE) injection 5 mg(Linked Group 2) 5 mg, IV Push, EVERY 6 HOURS NEEDED, Starting on Tue01/11/24 at 1211, Until Tue01/12/24 at 1534, Nausea, Vomiting prochlorperazine (Compazine) tablet 5 mg(Linked Group 2) 5 mg, Oral, EVERY 6 HOURS NEEDED, Starting on Tue01/11/24 at 1211, Until Yaz 01/12/24 at 1534, Nausea, Vomiting ROPivacaine (Naropin) 300 mg, EPINEPHrine (Adrenalin) 0.6 mg, ketorolac (TORADOL) 15 mg in sodium chloride 0.9% (NS) 38.4 mL solution (COMPLETED) 100 mL, Infiltration, ONCE NEEDED, 1 dose, Starting on Tue01/11/24 at 0920, Until Tue01/11/24 at 1012, Other, field block 1012 (Given - Provider: Rachelle Blanco MD - Comment: allergy information discussed with Dr. Blanco with ketorolac included in injection) sodium chloride 0.9% IV FLUSH (NS) SYRINGE 5 mL 5 mL, IV Flush, NEEDED, Starting on Tue01/11/24 at 1211, Until Yaz 01/12/24 at 1534, Other, IV Line Flushing sodium phosphate (Fleet) 7-19 GM/118ML enema 1 Enema 1 Enema, Rectal, ONE TIME DAILY NEEDED, Starting on Tue01/11/24 at 1211, Until Yaz 01/12/24 at 1534, Constipation, For constipation refractory to SENAKOT-S or DULCOLAX Linked Groups Order Group 1: ondansetron (Zofran) injection 4 mgJump to med 4 mg, IV Push, EVERY 6 HOURS NEEDED, Starting on Tue01/11/24 at 1211, Until Yaz 01/12/24 at 1534, Nausea, Vomiting Or ondansetron (Zofran ODT) disintegrating tablet 4 mgJump to med 4 mg, Oral, EVERY 6 HOURS NEEDED, Starting on Tue01/11/24 at 1211, Until Yaz 01/12/24 at 1534, Nausea, Vomiting Group 2: prochlorperazine (Compazine) tablet 5 mgJump to med 5 mg, Oral, EVERY 6 HOURS NEEDED, Starting on Tue01/11/24 at 1211, Until Yaz 01/12/24 at 1534, Nausea, Vomiting Or prochlorperazine (COMPAZINE) injection 5 mgJump to med 5 mg, IV Push, EVERY 6 HOURS NEEDED, Starting on Tue01/11/24 at 1211, Until Yaz 01/12/24 at 1534, Nausea, Vomiting documented in this encounter Orders Medications Ordered That Malachi ht Not Have Been Administered Count Last Ordered Date First Ordered Date aluminum-magnesium hydroxide (Maalox) oral suspension 30 mL 1 01/11/2024 atenolol (Tenormin) tablet 12.5 mg 1 2023 benzocaine-menthol 15-2.6 MG Lozenge 1 Lozenge 1 01/11/2024 bisacodyl (Dulcolax) suppository 10 mg 1 BUPivacaine 0.25% - EPINEPHr ine 1:200,000 PF (Marcaine, Sensorcaine-EPINEPHrine) PF injection 1-30 mL 1 01/11/2024 calcium carbonate (Tums) adonay wable tablet 500 mg 1 01/11/2024 calcium carbonate (Tums) adonay wable tablet 500-1,000 mg 1 01/11/2024 ceFAZolin (ANCEF) 2 g in dex trose 4% IVPB 100 mL 1 01/11/2024 diphenhydrAMINE (Benadryl) injection 25 mg 1 01/11/2024 hydrALAZINE (Apresoline) tablet 25 mg 1 08/2023 HYDROmorphone (Dilaudid) inj ection 0.25-0.5 mg 1 01/11/2024 HYDROmorphone (Dilaudid) injection 0.5 mg 1 01/11/2024 HYDROmorphone (Dilaudid) injection 1 mg 1 1 03/12/2023 hydrOXYzine (VISTARIL) injection 25 mg 1 labetalol (Trandate) injection 5-25 mg 1 lactated ringers BOLUS BAG 250 mL 1 024 lactated ringers infusion 1 01/11/2024 lisinopril (Prinivil, Zestri l) tablet 10 mg 1 01/11/2024 magnesium hydroxide (Milk of Magnesia) 400 MG/5ML suspension 30 mL 1 01/11/2024 melatonin tablet 3 mg 1 01/11/2024 melatonin tablet 6 mg 1 01/11/2024 meperidine (Demerol) injection 12.5 mg 1 naloxone (Narcan) injection 0.1 mg 1 2023 naloxone (Narcan) injection 0.2 mg 1 2023 ondansetron (Zofran ODT) dis integrating tablet 4 mg 1 01/11/2024 ondansetron (Zofran) injection 4 mg 2 01/10 oxyCODONE (Roxicodone) immed iate release tablet 2.5-5 mg 1 01/11/2024 phenylephrine (Biorphen) 0.5 MG/5ML injection 0.05 mg 1 01/11/2024 prochlorperazine (COMPAZINE) injection 5 mg 1 01/11/2024 prochlorperazine (Compazine) tablet 5 mg 1 01/11/2024 ROPivacaine (Naropin) 300 mg , EPINEPHrine (Adrenalin) 0.6 mg, ketorolac (TORADOL) 15 mg in sodium chloride 0.9% (NS) 38.4 mL solution 1 01/11/2024 sodium chloride 0.9% IV FLUS H (NS) SYRINGE 5 mL 1 01/11/2024 sodium phosphate (Fleet) 7-1 9 GM/118ML enema 1 Enema 1 01/11/2024 tranexamic acid (Cyklokapron ) 1000 mg in sodium chloride 0.7% 100 mL (premix) 2 01/11/2024 Admission Count Last Ordered Date First Orde red Date ASSIGN TO OUTPATIENT 2 01/11/2024 Discharge Count Last Ordered Date First Orde red Date DISCHARGE PATIENT 1 01/11/2024 Nursing Count Last Ordered Date First Orde red Date ACTIVITY ORDER (SPECIFY) 5 01/11/2024 DISCHARGE DIET 1 01/11/2024 DISCHARGE INSTRUCTIONS 8 01/11/2024 FOLLOW UP 1 01/11/2024 NOTIFY PHYSICIAN (SPECIFY) 3 01/11/2024 POST OPERATIVE INSTRUCTIONS 2 01/11/2024 PROVIDE MEDICATION INSTRUCTIONS 6 RESTRICTIONS FOR PATIENT AFTER DISCHARGE 1 01/11/2024 WOUND CARE INSTRUCTIONS 3 01/11/2024 Consult Count Last Ordered Date First Orde red Date ANESTHESIA FOLLOW UP 1 01/11/2024 documented in this encounter Care Teams Brim Setter Relationship Specialty Start Date End Date Virgen Arnold MD [facility] [facility] [address] [place] [address] PCP - General Internal Medicine 01/11/24 documented as of this encounter
--- OUTSIDE RECORDS SUMMARY | 2024-01-16 20:34 | XMS_ITS | Encounter Summary ---
Author Organization [facility] Address [address] [address] Phone Care Team Providers Care Anesthesiologist Attending Name Role Phone Virgen Arnold MD Primary Care Provider [phone] Encounter Details Date Type Department Care Team (Latest Contact Info) Description 01/11/2024 Travel Social History Tobacco Use Types Packs/Day Years Used Date Smoking Tobacco: Never Passive Smoke Exposure: Past Smokeless Tobacco: Never Alcohol Use Standard Drinks/Week Comments Not Currently 0 (1 standard drink = 0.6 oz pur e alcohol) [facility] Utilities Answer Date Recorded In the past 12 months has th e electric, gas, oil, or water [address] threatened to shut off services in your [...] declined 01/11/2024 Housing Stability Vital Sign Answer Cameorn e Recorded In the last 12 months, was t here a time when you were not able to pay the mortgage or rent on time? Patient declined 01/11/20 24 In the past 12 months, how m any times have you moved where you were living? 0 01/11/2024 At any time in the past [address] [facility], were you homeless or living in a assisted (including now)? Patient declined 01/11/2024 EH IP Custom IPV Answer Date Recorded Do you feel UNSAFE in any of your personal relationships with your family members or any other acquaintances? 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 Gender Identity Not on file Sexual Orientation Not on file Travel History Travel Start Travel End [place] 12/09/2023 01/09/2024 [place] 12/09/2023 01/09/2024 [place] 12/09/2023 01/09/2024 documented as of this encounter Functional Status * Patient's Vision Adequate to Safely Complete Daily Activities Answer Date of Assessment Author Yes 01/11/2024 11:57 AM Janneth Benoit RN * Patient's Memory Adequate to Safely Complete Daily Activities Answer Date of Assessment Author Yes 01/11/2024 11:57 AM Janneth Benoit RN documented as of this encounter Mental Status * Patient's Judgment Adequate to Safely Complete Daily Activities Answer Entry Date Author Yes 01/11/2024 11:57 AM Janneth Benoit RN documented in this encounter Plan of Treatment Not on file documented as of this encounter Visit Diagnoses Not on filedocumented in this encounter Care Teams Anesthesiologist Attending Relationship Specialty Start Date End Date Virgen Arnold MD [facility] [address] [place] [address] PCP - General Internal Medicine 01/11/24 documented as of this encounter
--- OUTSIDE RECORDS SUMMARY | 2024-01-16 20:34 | XMS_ITS | Encounter Summary ---
Author Organization [facility] Address [address] [address] Phone Care Team Providers Care Equipment Records Supervisor Name Role Phone Virgen Arnold MD Primary Care Provider [phone]- [phone] Reason for Visit * Auth/Cert (Routine) Specialty Diagnoses / Procedures Referred By Tracy craig Referred To Contact Diagnoses Knee pain M25.569 Procedures TOTAL KNEE REPLACEMENT Left total knee arthroplasty Rachelle Blanco MD [facility] [address] [place] [address] Phone: tel:[phone] fax:[phone] Referral ID Status Reason Start Date Expiration Date Visits Re quested Visits Authorized [id number] 1 1 Encounter Details Date Type Department Care Team (Late st Contact Info) Description 01/11/2024 9:27 AM SERVICE ADVOCATE CONTACT Anesthesia Event [facility] [address] [place] [phone] Polo Mills MD [address] [place] [address] [phone] Christian Benjamin DO [address] [place] [address] Anesthesia Record Procedure Summary Procedure Name Responsible Anesthesiologist Anesthesia Start Time Anesthesia Stop Time Left total knee arthroplasty (Left: Knee) Polo Mills MD 01/11/24 0901/11/24 1047 Events Date Time Event Comment 01/11/2024 0747 0857 AN Equip Check 0927 An Start The patient was reevaluated immediately prior to initiation of anesthesia. 09 An Start Data 0928 Start Supplemental O2 0930 Block Placement Started 0932 Anesthesia Ready 1011 Intraop Signature Intraop erative Record electronically signed by Polo Mills MD 1042 an stop data 1047 An Stop Report given to the receiving RN. No apparent anesthesia complications at this time. Electronically signed by Mame Hernandez APRN, ELY Meds Name Total lidocaine (XYLOCAINE) injection 2% 100 m g phenylephrine (Biorphen) injection 0.1 m g/mL syringe 500 mcg ePHEDrine injection 50 mg/mL 10 mg ondansetron (ZOFRAN) injection 2 mg/mL 4 mg dexamethasone (DECADRON) injection 10 mg /mL 10 mg propofol 20 mL VIAL 10 mg/mL (Diprivan) 487.7 mg tranexamic acid (Cyklokapron ) 1000 mg in sodium chloride 0.7% 100 mL (premix) 1,000 mg tranexamic acid (Cyklokapron ) 1000 mg in sodium chloride 0.7% 100 mL (premix) 1,000 mg ceFAZolin (ANCEF) 2 g in dextrose 4% IVP B 100 mL 2,000 mg mepivacaine 2% PF(Carbocaine PF/Polocain e-MPF) preservative free injection 2.5 mL lactated ringers infusion 800 mL * Agents Name O2 * Blood No blood administrations on file. Lines, Drains, and Airways Type Details Placement Removal Wound 01/11/24; 45; Inci afshan; N; 1; Anterior, Left; Knee 01/11/24 0945 by Latricia Pretty RN Peripheral IV 01/11/24; 0825; No; 20; Posterior, Right; Hand; ChloraPrep; Anatomical landmarks; None; None; Calm; Swelling 01/11/24 08 by Yael Rosenberg RN 01/12/24 0206 by Yakelin Butler RN documented in this encounter Social History Tobacco Use Types Packs/Day Years Used Date Smoking Tobacco: Never Passive Smoke Exposure: Past Smokeless Tobacco: Never Alcohol Use Standard Drinks/Week Comments Not Currently 0 (1 standard drink = 0.6 oz pur e alcohol) [facility] Utilities Answer Date Recorded In the [...] any time in the past 12 m [facility], were you homeless or living in a [facility] (including now)? Patient declined 01/11/2024 IP Custom IPV Answer Date Recorded Do you feel UNSAFE in any of your personal relationships with your family members or any other acquaintances? No 2023 Comments No Sex and Gender Information Value Date Recorded Sex Assigned at Not on file Legal Sex Female 10:55 PM SERVICE ADVOCATE CONTACT Gender Identity Not on file Sexual Orientation Not on file Travel History Travel Start Travel End [place] 12/09/2023 01/09/2024 [place] 12/09/2023 01/09/2024 [place] 12/09/2023 01/09/2024 documented as of this encounter Mental Status * Patient's Judgment Adequate to Safely Complete Daily Activities Answer Entry Date Author Yes 01/11/2024 11:57 AM SERVICE ADVOCATE CONTACT Janneth Huntley RN documented in this encounter OR Notes * Anesthesia Procedure Notes - Polo Mills MD - 01/11/2024 11:14 AM SERVICE ADVOCATE CONTACT Associated Order(s): Spinal Spinal Patient location during procedure: OR Reason for block: primary anesthetic Performed by: Polo Mills MD Authorized by: Polo Mills MD Preanesthetic Checklist Completed: patient identified, site marked, surgical consent, pre-op evaluation, timeout performed,IV checked, risks and benefits discussed and monitors and equipment checked Spinal Block Patient position: right lateral decubitus Prep: ChloraPrep Patient monitoring: heart rate, apparel merchandiser and continuous pulse ox Approach: right paramedian Location: L3-4 Needle Needle type: pencil-tip Needle gauge: 24 G Needle length: 3.5 in Medications Administered mepivacaine 2% PF(Carbocaine PF/Polocaine-MPF) preservative free injection - Intrathecal 2.5 mL - 01/11/2024 9:25:00 AM Assessment Sensory level: Adequate Events: cerebrospinal fluid Procedure assessment: patient tolerated procedure well with no immediate complications ICE ADVOCATE CONTACT * Anesthesia Postprocedure Evaluation - Polo Mills MD - 01/11/2024 11:13 AM CST Procedure Summary Date: 01/11/24 Room / Location: [facility] OR Anesthesia Start: 926 Anesthesia Stop: 1046 Procedure: Left total knee arthroplasty (Left: Knee) Diagnosis: (Knee pain M25.569) Surgeons: Rachelle Blanco MD Responsible Provider: Polo Mills MD Anesthesia Type: regional ASA Status: 3 Anesthesia Type: regional Vitals Value Taken Time BP 149/66 01/11/24 1110 Temp 36.9 ??C (98.4 ??F) 01/11/24 1044 Pulse 55 01/11/24 1111 Resp 7 01/11/24 1111 SpO2 97 % 01/11/24 1111 Vitals shown include unfiled device data. Patient Post-op disposition: inpatient floor planned admission Patient participation: patient able to participate Level of consciousness: awake and alert Pain score: 3 Pain management: adequate Airway patency: patent Cardiovascular status: acceptable Respiratory status: acceptable Hydration status: no apparent hydration abnormalities No PONVDental findings: dentition unchanged No notable events documented. ICE ADVOCATE CONTACT * Anesthesia Preprocedure Evaluation - Polo Mills MD - 01/11/2024 7:45 AM CST Anesthesia Evaluation negative anesthesia history Pulmonary - negative ROS and normal exam Cardiovascular - negative ROS and normal exam Exercise tolerance: > or = 4 METS Neuro/Psych - negative ROS GI/Hepatic/Renal - negative ROS Endo - negative ROS Other BMI Classification: obese (BMI 30-39.9) History reviewed. No pertinent past medical history. Past Surgical History: Procedure Laterality Date APPENDECTOMY KNEE ARTHROSCOPY Right TONSILLECTOMY AND ADENOIDECTOMY TOTAL KNEE REPLACEMENT Allergies Allergen Reactions Nabumetone Hypertension Nsaids Hypertension Ibuprofen Relafen [Nabumetone] Diphenhydramine Other Chills, shaking Per patient IV dose only, she is ok with orals Medications Prior to Admission Medication Sig Dispense Refill Last Dose/Taking lisinopril (Prinivil, Zestril) 20 MG tablet Take 20 mg by mouth one time a day. Taking MAGNESIUM GLYCINATE OR Take 2 Tablets by mouth one time a day. 01/05/2024 atenolol (TENORMIN) 25 MG tablet Take 12.5 mg by mouth one time a day. hydrochlorothiazide 25 MG tablet Take 25 mg by mouth one time a day. SIMVASTATIN OR Take 20 mg by mouth one time a day. Vitals: 01/02/24 1120 01/09/24 1552 01/11/24 0745 Weight: 79.4 kg (175 lb) 79.4 kg (175 lb) 81.4 kg (179 lb 7.3 oz) Height: 1.6 m (5' 3) 1.6 m (5' 3) 1.6 m (5' 3) Body mass index is 31.79 kg/m??. No visits with results within 1 Month(s) from this visit. Latest known visit with results is: Admission on 10/29/2011, Discharged on 10/30/2011 Component Date Value Ref Range Status WBC 10/29/2011 10.6 3.4 - 10.7 109/L Final RBC 10/29/2011 5.03 3.70 - 5.40 1012/L Final HGB 10/29/2011 14.1 11.7 - 15.8 g/dl Final HCT 10/29/2011 41.4 33.2 - 48.0 % Final MCV 10/29/2011 82.3 82.0 - 99.0 fL Final MCH 10/29/2011 28.0 27.0 - 34.0 pg Final MCHC 10/29/2011 34.0 32.0 - 35.7 g/dL Final RDW 10/29/2011 13.7 11.0 - 15.0 % Final PLT 10/29/2011 222 150 - 400 109/L Final Sodium 10/29/2011 128 (L) 134 - 143 mEq/L Final POTASSIUM 10/29/2011 3.2 (L) 3.4 - 5.1 mEq/L Final Chloride 10/29/2011 92 (L) 99 - 110 mEq/L Final CO2 10/29/2011 34 (H) 22 - 32 mEq/L Final GLUCOSE 10/29/2011 142 (H) 70 - 99 mg/dL Final BUN 10/29/2011 13 5 - 24 mg/dL Final Creatinine 10/29/2011 0.64 0.40 - 1.00 mg/dL Final GFR CALC 10/29/2011 >60 Final Calcium 10/29/2011 9.2 8.5 - 10.2 mg/dL Final Protein, Total 10/29/2011 7.3 6.0 - 8.0 g/dL Final Albumin 10/29/2011 4.1 3.5 - 5.0 g/dL Final ALK PHOSPHATASE 10/29/2011 59 25 - 125 IU/L Final ALT(SGPT) 10/29/2011 26 5 - 31 IU/L Final AST(SGOT) 10/29/2011 27 10 - 40 IU/L Final TOTAL BILIRUBIN 10/29/2011 1.5 (H) 0.1 - 1.2 mg/dL Final ANION GAP 10/29/2011 2.0 (L) 3.0 - 15.0 Final Protime 10/29/2011 11.6 9.5 - 12.5 sec Final INR 10/29/2011 1.1 0.9 - 1.1 Final APTT 10/29/2011 26 21 - 33 sec Final All allergies reviewed. Physical Exam Airway Mallampati: II TM distance: >3 FB Neck ROM: full Cardiovascular - normal exam Dental - normal exam Pulmonary - normal exam Anesthesia Plan ASA 3 Plan: regional Technique: spinal Anesthetic plan and risks discussed and informed consent obtained from: patient. Post-op pain management: IV opioid analgesics, IV non opioid analgesics and local and adductor canal block PONV Plan PONV risk factors: female and non-smoker, planned opioid use Calculated risk score: 3 Prevention/prophylaxis plan: Decadron and Zofran Patient is not DNR; Patient is not DNI; ICE ADVOCATE CONTACT documented in this encounter Plan of Treatment Not on file documented as of this encounter Procedures Procedure Name Priority Date/Time Associated Diagnosis Comments ANESTHESIA BLOCK SPINAL 01/11/2024 11:14 AM SERVICE ADVOCATE CONTACT documented in this encounter Results * Spinal (01/11/2024 11:14 AM SERVICE ADVOCATE CONTACT) Narrative Polo Mills MD - 01/11/2024 11:14 AM SERVICE ADVOCATE CONTACT Polo Mills MD ? 01/11/2024 11:14 AM Spinal Patient location during procedure: OR Reason for block: primary anesthetic Performed by: Polo Mills MD Authorized by: Polo Mills MD ?? Preanesthetic Checklist Completed: patient identified, site marked, surgical consent, pre-op evaluation, timeout performed, IV checked, risks and benefits discussed and monitors and equipment checked Spinal Block Patient position: right lateral decubitus Prep: ChloraPrep Patient monitoring: heart rate, apparel merchandiser and continuous pulse ox Approach: right paramedian Location: L3-4 Needle Needle type: pencil-tip Needle gauge: 24 G Needle length: 3.5 in Medications Administered mepivacaine 2% PF(Carbocaine PF/Polocaine-MPF) preservative free injection - Intrathecal 2.5 mL - 01/11/2024 9:25:00 AM Assessment Sensory level: Adequate Events: cerebrospinal fluid Procedure assessment: patient tolerated procedure well with no immediate complications Polo Mills MD PROCEDURE/MINOR JORDAN ORDERABLES Final Result documented in this encounter Visit Diagnoses Not on filedocumented in this encounter Administered Medications Inactive Administered Medications Medication Order MAR Action Action Date Dose Rate Site ceFAZolin (ANCEF) 2 g in dextrose 4% IVPB 100 mL 2,000 mg, Intravenous, at 200 mL/hr, ONCE, 1 dose, On Tue01/11/24 at 0800, Indication? surgical prophylaxis New Bag 01/11/2024 9:28 AM SERVICE ADVOCATE CONTACT 2,000 mg dexAMETHasone (Decadron) injection IV Push, NEEDED, Starting on Tue01/11/24 at 0939, Until Tue01/11/24 at 1048 Given 01/11/2024 9:39 AM SERVICE ADVOCATE CONTACT 10 mg ePHEDrine sulfate injection IV Push, NEEDED, Starting on Tue01/11/24 at 0958, Until Tue01/11/24 at 1048 Given 01/11/2024 9:58 AM SERVICE ADVOCATE CONTACT 10 mg lactated ringers infusion 10-50 mL/hr, Intravenous, CONTINUOUS, Starting on Tue01/11/24 at 0800, Until Yaz 01/12/24 at 1535 Continued From PreOp-(Anes) 01/11/2024 9:27 AM SERVICE ADVOCATE CONTACT Restarted 01/11/2024 8:59 AM SERVICE ADVOCATE CONTACT New Bag 01/11/2024 8:39 AM SERVICE ADVOCATE CONTACT 10 mL/hr 10 mL/hr lidocaine (Xylocaine) 2 % injection IV Push, NEEDED, Starting on Tue01/11/24 at 0930, Until Tue01/11/24 at 1048 Given 01/11/2024 9:30 AM SERVICE ADVOCATE CONTACT 100 mg mepivacaine 2% PF (Carbocaine/Polocaine) injection Intrathecal, Starting on Tue01/11/24 at 0925, Until Tue01/11/24 at 1114 Given 01/11/2024 9:25 AM SERVICE ADVOCATE CONTACT 2.5 mL ondansetron (Zofran) injection IV Push, NEEDED, Starting on Tue01/11/24 at 0938, Until Tue01/11/24 at 1048 Given 01/11/2024 9:38 AM SERVICE ADVOCATE CONTACT 4 mg phenylephrine (Biorphen) 0.5 MG/5ML injection IV Push, NEEDED, Starting on Tue01/11/24 at 0940, Until Tue01/11/24 at 1048 Given 01/11/2024 10:20 AM SERVICE ADVOCATE CONTACT 100 mcg Given 01/11/2024 10:09 AM SERVICE ADVOCATE CONTACT 100 mcg Given 01/11/2024 9:53 AM SERVICE ADVOCATE CONTACT 100 mcg Given 01/11/2024 9:45 AM SERVICE ADVOCATE CONTACT 100 mcg Given 01/11/2024 9:40 AM SERVICE ADVOCATE CONTACT 100 mcg propofol (Diprivan) 200 MG/20ML injection Intravenous, CONTINUOUS INTRA-OP, Starting on Tue01/11/24 at 0931, Until Tue01/11/24 at 1048 Rate/Dose Change 01/11/2024 10:19 AM SERVICE ADVOCATE CONTACT 50 mcg/kg/min 24.42 mL/hr Rate/Dose Change 01/11/2024 10:13 AM SERVICE ADVOCATE CONTACT 75 mcg/kg/min 36. 63 mL/hr New Bag 01/11/2024 9:31 AM SERVICE ADVOCATE CONTACT 100 mcg/kg/min 48.84 mL/ hr Given 01/11/2024 9:30 AM SERVICE ADVOCATE CONTACT 40 mg tranexamic acid (Cyklokapron) 1000 mg in sodium chloride 0.7% 100 mL (premix) 1,000 mg, Intravenous, at 200 mL/hr, ONCE, 1 dose, On Tue01/11/24 at 0800 New Bag 01/11/2024 9:34 AM SERVICE ADVOCATE CONTACT 1,000 m g tranexamic acid (Cyklokapron) 1000 mg in sodium chloride 0.7% 100 mL (premix) 1,000 mg, Intravenous, at 200 mL/hr, ONCE, 1 dose, On Tue01/11/24 at 0800 New Bag 01/11/2024 10:15 AM SERVICE ADVOCATE CONTACT 1,000 mg documented in this encounter Care Teams Equipment Records Supervisor Relationship Specialty Start Date End Date Virgen Arnold MD [address] [address] PCP - General Internal Medicine 01/11/24 documented as of this encounter
--- OUTSIDE RECORDS SUMMARY | 2024-01-16 20:34 | XMS_ITS | Encounter Summary ---
Author Organization [facility] Address [address] [address] Phone Care Team Providers Care Welder Setter Resistance Machine Name Role Phone Virgen Arnold MD Primary Care Provider [phone]- [phone] Encounter Details Date Type Department Care Team (Late st Contact Info) Description 01/11/2024 7:50 AM ELECTRIC POWER MACHINE OPERATOR Ancillary Procedure [facility] [address] [place] [address] Social History Tobacco Use Types Packs/Day Years Used Date Smoking Tobacco: Never Passive Smoke Exposure: Past Smokeless Tobacco: Never Alcohol Use Standard Drinks/Week Comments Not Currently 0 (1 standard drink = 0.6 oz pur e alcohol) [facility] Utilities Answer Date Recorded In the past 12 months has e electric, gas, oil, or water company [...] any time in the past 12 m onths, were you homeless or living in a [facility] (including now)? Patient declined 01/11/2024 EH IP Custom IPV Answer Date Recorded Do you feel UNSAFE in any of your personal relationships with your family members or any other acquaintances? No 2023 Comments No Sex and Gender Information Value Date Recorded Sex Assigned at Not on file Legal Sex Female 10:55 PM ELECTRIC POWER MACHINE OPERATOR Gender Identity Not on file Sexual Orientation Not on file Travel History Travel Start Travel End [place] 12/09/2023 01/09/2024 [place] 12/09/2023 01/09/2024 [place] 12/09/2023 01/09/2024 documented as of this encounter Functional Status * Patient's Vision Adequate to Safely Complete Daily Activities Answer Date of Assessment Author Yes 01/11/2024 11:57 AM ELECTRIC POWER MACHINE OPERATOR Janneth Huntley RN * Patient's Memory Adequate to Safely Complete Daily Activities Answer Date of Assessment Author Yes 01/11/2024 11:57 AM ELECTRIC POWER MACHINE OPERATOR Janneth Huntley RN documented as of this encounter Mental Status * Patient's Judgment Adequate to Safely Complete Daily Activities Answer Entry Date Author Yes 01/11/2024 11:57 AM ELECTRIC POWER MACHINE OPERATOR Janneth Huntley RN documented in this encounter Plan of Treatment Not on file documented as of this encounter Procedures Procedure Name Priority Date/Time Associated Diagnosis Comments US ANES REFERENCE STAT 01/11/2024 7:4 6 AM ELECTRIC POWER MACHINE OPERATOR documented in this encounter Results * US ANES REFERENCE (01/11/2024 7:46 AM ELECTRIC POWER MACHINE OPERATOR) Narrative Lydia, User - 01/11/2024 7:46 AM ELECTRIC POWER MACHINE OPERATOR There is not a diagnostic result associated with the image(s). ??Please refer to either the Notes/Trans, Procedures, LDA or Anesthesia tab in the patients chart for clinical information the performing provider may have documented. The actual image(s) were acquired at the ?? on ??. This order was placed into the system and automatically finalized on 01/11/2024. us Christian C Honl DO [facility] IMAGING ORDERABLES F inal Result documented in this encounter Visit Diagnoses Not on filedocumented in this encounter Care Teams Welder Setter Resistance Machine Relationship Specialty Start Date End Date Virgen Arnold MD [place] [id number] PCP - General Internal Medicine 01/11/24 documented as of this encounter
--- OUTSIDE RECORDS SUMMARY | 2024-01-16 20:34 | XMS_ITS | Encounter Summary ---
Author Organization [facility] Address [address] [address] Phone Care Team Providers Care Reclamation Furnace Operator Name Role Phone Virgen Arnold MD Primary Care Provider [phone] Reason for Visit * Reason Onset Date Comments Pre-Procedure Call 01/09/2024 * Auth/Cert (Routine) Specialty Diagnoses / Procedures Referred By Tracy craig Referred To Contact Diagnoses Knee pain M25.569 Procedures TOTAL KNEE REPLACEMENT Left total knee arthroplasty Rachelle Blanco MD [facility] [address] Phone: tel: fax: Referral ID Status Reason Start Date Expiration Date Visits Re quested Visits Authorized [id number] 1 1 Encounter Details Date Type Department Care Team (Late st Contact Info) Description 01/11/2024 9:20 AM TRUCK CATERER - 01/11/2024 11:10 AM TRUCK CATERER Surgery [facility] OR [address] [place] [phone] Rachelle Blanco MD [facility] [address] [place] [id number] Left total knee arthroplasty Social History Tobacco Use Types Packs/Day Years Used Date Smoking Tobacco: Never Passive Smoke Exposure: Past Smokeless Tobacco: Never Tobacco Cessation:Counseling Given: No Alcohol Use Standard Drinks/Week Comments Not Currently 0 (1 standard drink = 0.6 oz pur e alcohol) [facility] Utilities Answer Date Recorded In [...] any time in the past 12 m [facility], were you homeless or living in a chcf (including now)? Patient declined 01/11/2024 IP Custom IPV Answer Date Recorded Do you feel UNSAFE in any of your personal relationships with your family members or any other acquaintances? No 2023 Comments No Sex and Gender Information Value Date Recorded Sex Assigned at Not on file Legal Sex Female 10:55 PM TRUCK CATERER Gender Identity Not on file Sexual Orientation Not on file Travel History Travel Start Travel End [place] 12/09/2023 01/09/2024 [place] 12/09/2023 01/09/2024 [place] 12/09/2023 01/09/2024 documented as of this encounter Last Filed Vital Signs Vital Sign Reading Time Taken Comments Blood Pressure 164/73 01/11/2024 11:05 AM TRUCK CATERER Pulse 51 01/11/2024 11:05 AM TRUCK CATERER Temperature 36.9 ??C (98.4 ??F) 01/11/2024 10:[address] Respiratory Rate 16 01/11/2024 11:05 AM TRUCK CATERER Oxygen Saturation 98% 01/11/2024 11:05 AM TRUCK CATERER Inhaled Oxygen Concentration - - Weight 81.4 kg (179 lb 7.3 oz) 01/11/2024 7:45 A M TRUCK CATERER Height 160 cm (5' 3) 01/11/2024 7:45 AM TRUCK CATERER Body Mass Index 31.79 01/11/2024 7:45 AM TRUCK CATERER documented in this encounter Functional Status * Patient's Vision Adequate to Safely Complete Daily Activities Answer Date of Assessment Author Yes 01/11/2024 11:57 AM TRUCK CATERER Janneth Huntley RN * Patient's Memory Adequate to Safely Complete Daily Activities Answer Date of Assessment Author Yes 01/11/2024 11:57 AM TRUCK CATERER Janneth Huntley RN documented as of this encounter Mental Status * Patient's Judgment Adequate to Safely Complete Daily Activities Answer Entry Date Author Yes 01/11/2024 11:57 AM TRUCK CATERER Janneth Huntley RN documented in this encounter [...] Provider. Follow Up Instructions: Janneth Nichole PA-C [facility] [address] Skilled Services Certification/Face to Face encounter: Patient Name: Leticia Church : 1945 Maribell Gold PA-C [facility] Rounder K CATERER documented in this encounter Discharge Instructions * Appointments* Kimi Marshall RN - 01/12/2024 2:22 AM TRUCK CATERER Post-op appointment scheduled with Janneth Nichole PA-C on 01/25/24 at 1:15 pm at the [place] office K CATERER documented in this encounter Medications at Time [...] Means Destination Comment s Home and/or Self Longterm documented in this encounter Progress Notes * [...] single end cane. The patient and their assistant basketball coach was provided education and credit support counselor on safe body mechanics and transfer [...] 61-90 Moderate Dependence 91-99 Slight Dependence 100 [place] Score Prediction Less than 40 Unlikely to [...] concerns to note. The patient and their assistant basketball coach have been instructedon safe patient handling [...] Total Treatment Time: 30 minutes Gait Training (76515) = 15 minutes Therapeutic Exercise (61748) = 15 minutes K CATERER * Kelin Santana PA-C - 01/12/2024 9:34 [...] with significant medical problems including HTN, HLD, IVCENTE, migraines who underwent LTKA on 01/11/[address] Blanco. Medicine consult requested for perioperative comanagement of medical comorbidities. Assessment/Plan: Active Hospital Problems 1S/P total knee arthroplasty, left Care per primary service, to include pain management, activity, bowel regimen, anticoagulation and discharge. ABLA Postoperative, expected. Vitally stable, no signs or symptoms of active bleed. Monitor. HTN Continue CONTINUOUS DRYOUT OPERATOR lisionpril POD1 with hold parameters. Hold CONTINUOUS DRYOUT OPERATOR hydrochlorothiazide Takes atenolol in the evenings; will [...] Status: Full Code Kelin Santana PA-C Hospitalist K CATERER * Janneth Asif RN - 01/11/2024 11:48 AM CST Patient states she has taken ASA before and never had issues. Patient states she I'm fine takingAsprin after surgery to prevent blood clots. K CATERER * Kelin Santana PA-C - 01/11/2024 10:56 AM CST PROGRESS NOTE Date of Service: 01/11/2024 Subjective: POD 0 s/p LTKA Stable post op Patient denies headache, dizziness, LOC, syncope, presyncope, nausea, vomiting, abdominal pain, diarrhea, constipation, chest pain, shortness of breath, cough, fevers, chills. Reviewed Preop H&P. Reviewed Preop labs. 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 She typically [...] bowel regimen, anticoagulation and discharge. HTN Continue CONTINUOUS DRYOUT OPERATOR lisionpril POD1 with hold parameters. Hold CONTINUOUS DRYOUT OPERATOR hydrochlorothiazide Takes atenolol in the evenings; will [...] including nursing, social work and other consultants. K CATERER * Brina Davis RN - 01/02/2024 11:22 AM CDT 01/02/24 1100 Pre-op Call Department Department RBI Pre-op Call Schedule Pre-op H&P with PCP [...] Plan Outpatient Outpatient PT Plan Verified;Location (comment) ([place] [facility]) Length of Stay Plan reviewed;Overnight stay Division Traffic Superintendent name & phone number -Cherelle castañeda [phone] Will your assistant basketball coach be the one picking you up [...] Pre-op H&P date 12/20/23 Pre-op H&P location [facility] How many stairs to enter your [...] surgical site contact [facility] provider. Patient and Division Traffic Superintendent verbalized understanding and readiness for discharge. Patient belonging identified, pt and assistant basketball coach verbalize all belongings accounted for. Patient [...] & Skin Assessment flowsheet for intervention documentation. K CATERER * Op Note - Rachelle Blanco MD - 01/12/2024 9:00 AM CST Surgeon: Rachelle Blanco MD Concrete Wall Grinder Operator: ESTEFANY Hinojosa PA-C, skilled liaison inspection laboratory assistant, was required for retraction soft tissues, [...] clinic follow-up in 10 to 14 days. K CATERER * Care Plan - Marielena Fuchs RN [...] and absence of new pressure injury. See Dady & Skin Assessment flowsheet for intervention documentation. K CATERER * Care Plan - Janneth Asif RN - 01/11/2024 6:05 PM CST End of Shift Summary and Plan of Care Procedure: POD0 from [facility]. Pain/Comfort: Highest pain rating was a [...] & Skin Assessment flowsheet for intervention documentation. K CATERER K CATERER * Rehab Evaluation - Lynda Duncan, PT [...] oxygen), migraine -s/p R TKA 2022 at [facility] Functional Level Prior to Admit: Patient independent [...] post operatively. Therapeutic Activity: Skilled therapeutic education, credit support counselor and activity modification was providedto patient for the purpose and intent of improving functional mobility and activities of daily living. Therapist provided education regarding the following topics; Durable Medical Equipment- therapist provided skilled assessment and credit support counselor throughout encounter regarding durable medical equipment [...] Time: 30 minutes Evaluation Moderate - Complexity (76255) Therapeutic Activities (46750) = 10 minutes Gait Training (35168) = 3 minutes Therapeutic Exercise (00553) = 5 minutes K CATERER * Plan of Care - Maribell Gold PA-C - 01/02/2024 11:25 AM CDT PREOPERATIVE ASSESSMENT NOTE Procedure(s): Left total knee arthroplasty Date of Surgery: 01/11/[address] Blanco Post-op appointment scheduled with Janneth Nichole PA-C on 01/25/24 at 1:15 pm at the [place] office Patient's goals after surgery: less pain Patient's concerns with upcoming surgery: none H&P Patient's pre-operative history and physical with their primary care physician was reviewed. From that, the following should be noted: -HTN, HLD, VICENTE (will bring CPAP, doesn't use oxygen), migraine -s/p R TKA at [facility] -Cleared for surgery per PCP. Patient does [...] time of discharge between 9:00AM-12:00PM with their regional intermodal truck driver arriving by 8:00 AM Domestic Maid: daughter or granddaughter Discharge location: daughter's home Anticipated Home Health Services: None Division Traffic Superintendent/Family member available after discharge: daughter (was not present for this discussion) Post-operative medication plan and education was discussed Patient's medication dosing and sig for the above medications to be determined post-operatively. In the event of a concern arising after surgery, the patient was provided with the following information: During business hours, call surgeon's care attendant, Elodia Diaz at [phone]. After business hours, call the on-call provider at [phone]. [facility] was discussed. They [...] Assistive Devices Page 17/51 They understand their assistant basketball coach should bring their assistive device to [...] is not an outpatient pharmacy at the [facility] and they will need to cigar packer and picker their post-operative medications at a pharmacy of [...] of surgery after arriving at the [facility]. Avoiding a Delayed Surgery Page 10 I gave them this reference to use between now and surgery to avoid their surgery being delayed or cancelled. Maribell Gold PA-C [facility] documented in this encounter Plan of Treatment Not on file documented as of this encounter Procedures Procedure Name Priority Date/Time Associated Diagnosis Comments HEMOGLOBIN Routine 01/12/2024 5:44 AM TRUCK CATERER HEMOGLOBIN Routine 01/11/2024 7:55 AM TRUCK CATERER US ANES REFERENCE STAT 01/11/2024 7:4 6 AM TRUCK CATERER documented in this encounter Results * (ABNORMAL) HEMOGLOBIN (01/12/2024 5:44 AM TRUCK CATERER) HGB 9.9(L) 12.0 - 16.0 g/dl 01/12/2024 6:12 AM TRUCK CATERER [facility] Blood BLOOD SPECIMEN / Unknown Venipuncture / Unknown 01/12/2024 5:44 AM TRUCK CATERER 01/12/2024 5:57 AM TRUCK CATERER Janneth Nichole PA-C EC HEMATOLOGY ORDERABLES Final Result [facility] [address] [place] [address] * HEMOGLOBIN (01/11/2024 7:55 AM TRUCK CATERER) HGB 13.1 12.0 - 16.0 g/dl 01/11/2024 8:02 AM TRUCK CATERER [facility] Blood BLOOD SPECIMEN / Unknown Venipuncture / Unknown 01/11/2024 7:55 AM TRUCK CATERER 01/11/2024 7:58 AM TRUCK CATERER Rachelle Blanco MD EC HEMATOLOGY ORDERABLES Fi nal Result [facility] [address] [place] [address] * US ANES REFERENCE (01/11/2024 7:46 AM TRUCK CATERER) Narrative Wicho, User - 01/11/2024 7:46 AM TRUCK CATERER There is not a diagnostic result associated [...] Tue01/11/24 at 0800 Given 01/11/2024 8:30 AM TRUCK CATERER 1,000 mg acetaminophen (Tylenol) tablet 1,000 mg 1,000 mg, Oral, 3 TIMES DAILY, First dose on Tue01/11/24 at 1400, Until Discontinued Given 01/12/2024 8:21 AM TRUCK CATERER 1,000 mg Given 01/11/2024 8:23 PM TRUCK CATERER 1,000 mg Given 01/11/2024 1:31 PM TRUCK CATERER 1,000 mg aluminum-magnesium hydroxide (Maalox) oral suspension 30 mL 30 mL, Oral, EVERY 4 HOURS NEEDED, Starting on Tue01/11/24 at 1211, Until Yaz 01/12/24 at 1534, Heartburn aspirin EC tablet 81 mg 81 mg, Oral, 2 TIMES DAILY BREAKFAST AND SUPPER, First dose on Tue01/11/24 at 1800, Until Discontinued Given 01/12/2024 8:21 AM TRUCK CATERER 81 mg Given 01/11/2024 5:01 PM TRUCK CATERER 81 mg atorvaSTATin (Lipitor) tablet 10 mg 10 mg, Oral, AT BEDTIME, First dose on Tue01/11/24 at 2200, Until Discontinued Given 01/11/2024 8:26 PM TRUCK CATERER 10 mg bisacodyl (Dulcolax) suppository 10 mg [...] surgical prophylaxis New Bag 01/12/2024 1:24 AM TRUCK CATERER 2,000 mg 200 mL/hr New Bag 01/11/2024 5:01 PM TRUCK CATERER 2,000 mg 200 mL/hr ethyl alcohol nasal 62 % swab Nasal, ONCE, 1 dose, On Tue01/11/24 at 0800 Given 01/11/2024 8:[address] 1 Swab ethyl alcohol nasal 62 % swab Nasal, 2 TIMES DAILY, 10 doses, First dose on Tue01/11/24 at 2000, Last dose on Tue01/16/24 at 0800 Given 01/12/2024 8:21 AM TRUCK CATERER 1 Swab Given 01/11/2024 8:26 PM TRUCK CATERER 1 Swab fentaNYL (Sublimaze) injection 50-100 mcg 50-100 mcg, IV Push, ONCE, 1 dose, On Tue01/11/24 at 0800 Given 01/11/2024 8:55 AM TRUCK CATERER 75 mcg HYDROmorphone (Dilaudid) injection 0.25-0.5 mg 0.25-0.5 mg, IV Push, EVERY 2 HOURS NEEDED, Starting on Tue01/11/24 at 1211, Until Yaz 01/12/24 at 1534, Moderate Pain (4-6), Severe Pain (7-10) hydrOXYzine HCl (Atarax) tablet 10 mg 10 mg, Oral, EVERY 6 HOURS NEEDED, Starting on Tue01/11/24 at 1211, Until Yaz 01/12/24 at 1534, Other, Muscle Spasms Given 01/11/2024 4:14 PM TRUCK CATERER 10 mg lactated ringers BOLUS BAG 250 mL 250 mL, Intravenous, at 1,000 mL/hr, EVERY 30 MINUTES NEEDED, 2 doses, Starting on Tue01/11/24 at 1211, Until Yaz 01/12/24 at 1534 lactated ringers infusion 10-50 mL/hr, Intravenous, CONTINUOUS, Starting on Tue01/11/24 at 0800, Until Yaz 01/12/24 at 1535 Continued From PreOp-(Anes) 01/11/2024 9:27 AM TRUCK CATERER Restarted 01/11/2024 8:59 AM TRUCK CATERER New Bag 01/11/2024 8:39 AM TRUCK CATERER 10 mL/hr 10 mL/hr lactated ringers infusion [...] Yaz 01/12/24 at 1534, Respiratory Depression, Other, SPIKE DRIVER depression ondansetron (Zofran ODT) disintegrating tablet 4 mg 4 mg, Oral, EVERY 6 HOURS NEEDED, Starting on Tue01/11/24 at 1211, Until Yaz 01/12/24 at 1534, Nausea, Vomiting ondansetron (Zofran) injection [...] 0900, Until Discontinued Given 01/12/2024 8:21 AM TRUCK CATERER 17 g pregabalin (Lyrica) capsule 75 mg 75 mg, Oral, ONCE, 1 dose, On Tue01/11/24 at 0800 Given 01/11/2024 8:30 AM TRUCK CATERER 75 mg prochlorperazine (COMPAZINE) injection 5 mg 5 mg, IV Push, EVERY 6 HOURS NEEDED, Starting on Tue01/11/24 at 1211, Until Yaz 01/12/24 at 1534, Nausea, Vomiting prochlorperazine (Compazine) tablet 5 mg 5 mg, Oral, EVERY 6 HOURS NEEDED, Starting on Tue01/11/24 at 1211, Until Yaz 01/12/24 at 1534, Nausea, Vomiting ROPivacaine (Naropin) 300 mg, EPINEPHrine (Adrenalin) 0.6 mg, ketorolac (TORADOL) 15 mg in sodium chloride 0.9% (NS) 38.4 mL solution 100 mL, Infiltration, ONCE NEEDED, 1 dose, Starting on Tue01/11/24 at 0920, Until Tue01/11/24 at 1012, Other, field block Given 01/11/2024 10:12 AM TRUCK CATERER Left Knee Joint senna-docusate (Senokot-S) 8.6-50 MG per tablet 1 Tablet 1 Tablet, Oral, 2 TIMES DAILY, First dose on Tue01/11/24 at 1300, Until Discontinued Given 01/12/2024 8:21 AM TRUCK CATERER 1 Tablet Given 01/11/2024 8:26 PM TRUCK CATERER 1 Tablet Given 01/11/2024 1:31 PM TRUCK CATERER 1 Tablet sodium chloride 0.9% IV FLUSH (NS) SYRINGE 5 mL 5 mL, IV Flush, EVERY 8 HOURS, First dose on Tue01/11/24 at 1400, Until Discontinued Given 01/11/2024 1:32 PM TRUCK CATERER 5 mL sodium chloride 0.9% IV FLUSH (NS) SYRINGE 5 mL 5 mL, IV Flush, NEEDED, Starting on Tue01/11/24 at 1211, Until Tue01/12/24 at 1534, Other, IV Line Flushing sodium phosphate (Fleet) 7-19 GM/118ML enema 1 Enema 1 Enema, Rectal, ONE TIME DAILY NEEDED, Starting on Tue01/11/24 at 1211, Until Tue01/12/24 at 1534, Constipation, For constipation refractory to [...] Recently Administered Medications Times are shown in TRUCK CATERER. Scheduled Medication Order 01/10/2024 01/11/2024 01/12/2024 acetaminophen (Tylenol) tablet 1,000 mg (COMPLETED) 1,000 mg, Oral, ONCE, 1 dose, On Tue01/11/24 at 0800 0830 (Given - Provider: Yael Rosenberg, MANOJ) acetaminophen (Tylenol) tablet 1,000 mg 1,000 mg, Oral, 3 TIMES DAILY, First dose on Tue01/11/24 at 1400, Until Discontinued 133 (Given - Provider: Jenn Davenport RN)2022 (Given - Provider: Marielena Fuchs, MANOJ) 820 (Given - Provider: Adri St, RN) aspirin EC tablet 81 mg 81 mg, Oral, 2 TIMES DAILY BREAKFAST AND SUPPER, First dose on Tue01/11/24 at 1800, Until Discontinued 170 (Given - Provider: Janneth Asif, MANOJ) 820 (Given - Provider: Adri St, MANOJ) atorvaSTATin (Lipitor) tablet 10 mg 10 mg, Oral, AT BEDTIME, First dose on Tue01/11/24 at 2200, Until Discontinued 2025 (Given - Provider: Marielena Fuchs, MANOJ) ceFAZolin (ANCEF) 2 g in dextrose 4% IVPB 100 mL (COMPLETED) 2,000 mg, Intravenous, at 200 mL/hr, ONCE, 1 dose, On Tue01/11/24 at 0800, Indication? surgical prophylaxis 0928 (New Bag - Provider: Mame Hernandez APRN, HOSE INSPECTOR) ceFAZolin (ANCEF) 2 g in dextrose 4% IVPB 100 mL (COMPLETED) 2,000 mg, Intravenous, at 200 mL/hr, *EVERY 8 HOURS, 2 doses, First dose on Tue01/11/24 at 1700, Last dose on Tue01/12/24 at 0100, Indication? surgical prophylaxis 170 (New Bag - Provider: Janneth Asif RN)1731 (Stopped - Provider: Janneth Asif RN) 0124 (New Bag - Provider: Marielena Fuchs, MANOJ)0154 (Stopped - Provider: Marielena Fuchs, MANOJ) ethyl alcohol nasal 62 % swab (COMPLETED) Nasal, ONCE, 1 dose, On Tue01/11/24 at 0800 0829 (Given - Provider: Yael Rosenberg, MANOJ) ethyl alcohol nasal 62 % swab Nasal, 2 TIMES DAILY, 10 doses, First dose on Tue01/11/24 at 2000, Last dose on Tue01/16/24 at 0800 2025 (Given - Provider: Marielena Fuchs RN) 0821 (Given - Provider: Adri St RN) fentaNYL (Sublimaze) injection 50-100 mcg (COMPLETED) 50-100 mcg, IV Push, ONCE, 1 dose, On Tue01/11/24 at 0800 0855 (Given - Provider: Yael Rosenberg RN) lisinopril (Prinivil, Zestril) tablet 10 mg 10 mg, Oral, ONCE DAILY, First dose on Tue01/12/24 at 0800, Until Discontinued 0819 (Hold Single Do se - Provider: Adri St RN - Reason: Order Parameters not met) polyethylene glycol 3350 (Glycolax, Miralax) packet 17 g 17 g, Oral, ONCE DAILY, First dose on Tue01/12/24 at 0900, Until Discontinued 08 (Given - Provid er: Adri St RN)0822 (Canceled Entry - Provider: Adri St RN) pregabalin (Lyrica) capsule 75 mg (COMPLETED) 75 mg, Oral, ONCE, 1 dose, On Tue01/11/24 at 0800 0830 (Given - Provider: Yael Rosenberg RN) senna-docusate (Senokot-S) 8.6-50 MG per tablet 1 Tablet 1 Tablet, Oral, 2 TIMES DAILY, First dose on Tue01/11/24 at 1300, Until Discontinued 1331 (Given - Provider: Jenn Davenport RN)2026 (Given - Provider: Marielena Fuchs RN) 0821 (Given - Provider: Adri St RN) sodium chloride 0.9% IV FLUSH (NS) SYRINGE [...] Bag - Provider: Mame Hernandez APRN, ELY) tranexamic acid (Cyklokapron) 1000 mg in sodium [...] RN)0858 (Paused - Provider: Mame Hernandez APRN, CRNA - Comment: Switch to gravity)0859 (Restarted - Provider: Mame Hernandez APRN, ELY)0927 (Continued From PreOp-(Anes) - Provider: Mame Hernandez APRN, CRNA)1039 (Anesthesia Volume Adjusted - Provider: Mame Hernandez APRN, CRNA)1134 (Stopped - Provider: Hawa Gold RN) lactated [...] Starting on Tue01/11/24 at 1211, Until Yaz 11/7/24 at 1534, Constipation calcium carbonate (Tums) chewable tablet 500 mg 500 mg, Chew, 4 TIMES DAILY NEEDED, Starting on Tue01/11/24 at 1211, Until Tue01/12/24 at 1534, Heartburn calcium carbonate (Tums) chewable tablet 500-1,000 mg 500-1,000 mg, Chew, NEEDED, Starting on Tue01/11/24 at 1211, Until Tue01/12/24 at 1534, Heartburn hydrALAZINE (Apresoline) tablet 25 mg 25 mg, Oral, EVERY 6 HOURS NEEDED, Starting on Tue01/11/24 at 1211, Until Tue01/12/24 at 1534, For SBP greater than 170, [...] Muscle Spasms 1614 (Given - Provider: Migel Asif, MANOJ) lactated ringers BOLUS BAG 250 mL 250 mL, Intravenous, at 1,000 mL/hr, EVERY 30 MINUTES NEEDED, 2 doses, Starting on Tue01/11/24 at 1211, Until Tue01/12/24 at 1534 magnesium hydroxide (Milk of Magnesia) [...] Tue01/11/24 at 1211, Until Tue01/12/24 at 1534, Sleep naloxone (Narcan) injection 0.1 mg 0.1 mg, IV Push, EVERY 3 MINUTES NEEDED, Starting on Tue01/11/24 at 1211, Until Yaz 01/12/24 at 1534, Respiratory Depression, Other, SPIKE DRIVER depression ondansetron (Zofran ODT) disintegrating tablet 4 mg(Linked Group 1) 4 mg, Oral, EVERY 6 HOURS NEEDED, Starting on Tue01/11/24 at 1211, Until Yaz 01/12/24 at 1534, Nausea, Vomiting ondansetron (Zofran) injection [...] Until Yaz 01/12/24 at 1534, Nausea, Vomiting prochlorperazine (Compazine) tablet [...] prochlorperazine (Compazine) tablet 5 mg 1 01/11/2024 sodium chloride 0.9% IV FLUS [...] 01/11/2024 documented in this encounter Care Teams Reclamation Furnace Operator Relationship Specialty Start Date [place] [address] PCP - General Internal Medicine 01/11/24 documented as of this encounter
--- OUTSIDE RECORDS SUMMARY | 2024-01-16 20:34 | XMS_ITS | Clinical Summary ---
Author Organization [facility] Address [address] [address] Phone Care Team Providers Care Appointment Clerk Name Role Phone Virgen Arnold MD Primary Care Provider +1- [phone] Allergies Active Allergy Reactions Criticality Noted Date Comments Diphenhydramine Other Low 02/13/2007 Chills, shaking Per patient IV dose only, she is ok with orals Ibuprofen 10/29/2011 Nabumetone Hypertension Medium 01/03/2024 Nsaids Hypertension Medium 01/03/2024 Nabumetone 10/29/2011 Medications atenolol (TENORMIN) 25 MG tablet Take 12.5 mg by mouth one time a day. Active hydrochlorothi azide 25 MG tablet Take 25 mg by mouth one time a day. Active SIMVASTATIN OR Take 20 mg by mouth one time a day. Active MAGNESIUM GLYCINATE OR Take 2 Tablets by mouth one time a day. Active lisinopril (Prinivil, Zestril) 20 MG tablet Take 10 mg by mouth one time a day. Active Multiple Vitamin (MULTIVITAMIN ADULT OR) Take by mouth one time a day. Active acetaminophen (Tylenol) 500 MG tablet Take 500 mg by mouth every six hours as needed for Pain. Limit acetaminophen to 4000 mg per day from all sources. Active Doxylamine Succinate, Sleep, (SLEEP AID OR) Take by mouth one time a day. Active oxyCODONE (Roxicodone) 5 MG immediate release tablet Take 1 Tablet by mouth every four hours as needed for Pain for up to 30 days. 25 Tablet 4 02/10/20 24 Active aspirin EC 81 MG tablet Take 1 Tablet by mouth 2 (two) times a day. Do not split or crush. 60 Tablet 4 Active hydrOXYzine HCl (Atarax) 10 MG tablet Take 1 Tablet by mouth four times a day as needed for Itching. 45 Tablet 4 Active senna-docusate (Senokot-S) 8.6-50 MG oral tablet Take 1 Tablet by mouth two times a day. Take to prevent constipation while taking oxycodone. 30 Tablet 4 Active Active Problems Problem Noted Date Diagnosed Date S/P total knee arthroplasty, left 01/06/2024 Encounters Date Type Department Care Team Description 01/11/2024 9:27 AM PLANNING TECHNICIAN Anesthesia Event [facility] SURGERY OR [address] [place] [phone] Polo Mills MD Honl, Cody C, DO 01/11/2024 9:20 AM PLANNING TECHNICIAN - 01/11/2024 11:10 AM PLANNING TECHNICIAN Surgery [facility] SURGERY OR [address] [place] [phone] Rachelle Blanco MD Left total knee arthroplasty 01/11/2024 7:50 AM PLANNING TECHNICIAN Ancillary Procedure [facility] RADIOLOGY OS FILMS [address] [place] [phone] 01/11/2024 7:34 AM PLANNING TECHNICIAN - 01/12/2024 11:34 AM PLANNING TECHNICIAN Hospital Encounter [facility] INPATIENT [address] [place] [phone] Rachelle Blanco MD S/P total knee arthroplasty, left (Primary Dx) Discharge Disposition: Home and/or Self Care 01/11/2024 Travel 01/09/2024 Travel from Last 3 Months Surgical History Surgery Date Site/Laterality Comments TOTAL KNEE REPLACEMENT KNEE ARTHROSCOPY Right TONSILLECTOMY AND ADENOIDECTOMY APPENDECTOMY Social History Tobacco Use Types Packs/Day Years Used Date Smoking Tobacco: Never Passive Smoke Exposure: Past Smokeless Tobacco: Never Tobacco Cessation:Counseling Given: No Alcohol Use Standard Drinks/Week Comments Not Currently 0 (1 standard drink = 0.6 oz pur e alcohol) [facility] Utilities Answer Date Recorded In the [...] any time in the past 12 m [facility], were you homeless or living in a assisted (including now)? Patient declined 01/11/2024 EH IP Custom IPV Answer Date Recorded Do you feel UNSAFE in any of your personal relationships with your family members or any other acquaintances? No 2023 Comments No Sex and Gender Information Value Date Recorded Sex Assigned at Not on file Legal Sex Female 10:55 PM PLANNING TECHNICIAN Gender Identity Not on file Sexual Orientation Not on file Travel History Travel Start Travel End [place] 12/09/2023 01/09/2024 [place] 12/09/2023 01/09/2024 [place] 12/09/2023 01/09/2024 Obstetrics History Last Filed Vital Signs Vital Sign Reading Time Taken Comments Blood Pressure 115/56 01/12/2024 8:15 AM PLANNING TECHNICIAN Pulse 55 01/12/2024 8:15 AM PLANNING TECHNICIAN Temperature 36.4 ??C (97.6 ??F) 01/12/2024 8:15 AM CS T Respiratory Rate 16 01/12/2024 8:15 AM PLANNING TECHNICIAN Oxygen Saturation 99% 01/12/2024 8:15 AM PLANNING TECHNICIAN Inhaled Oxygen Concentration - - Weight 81.4 kg (179 lb 7.3 oz) 01/11/2024 7:45 A M PLANNING TECHNICIAN Height 160 cm (5' 3) 01/11/2024 7:45 AM PLANNING TECHNICIAN Body Mass Index 31.79 01/11/2024 7:45 AM PLANNING TECHNICIAN Plan of Treatment Health Maintenance Due Date Last Done Comments PERTUSSIS (Standing Order) 1965 TETANUS (Standing Order) 1965 Shingrix (Zoster recombinant ) vaccine (Standing Order) (1 of 2) 1996 DXA,FEMALES AGE 65 OR GREATER 11/23/2011 Pneumococcal Vaccine: 65+ yr s (Standing Order) (1 of 1 - PCV) 11/23/2011 RSV Vaccination (60+ yrs) (Abrysvo/Arexvy) (1 - 1-dose 75+ series) 2021 COVID-19 Vaccine (2023-2 5 season) 2023 Influenza Vaccine Seasonal (Standing Order) (#1) 2023 HPV Vaccine (Standing Order) Aged Out No longer eligible based on patient's age to complete this topic Hepatitis B Vaccine (Standin g Order) Aged Out No longer eligible b ased on patient's age to complete this topic Medical Devices Implanted Type Area Television News Producer Device Identifier Shelf Expiration Date Model / Serial / Lot Cement Bone Mv Simplex P Speedset - [id number] Implanted:Qty: 2 on 01/11/2024 by Rachelle Blanco MD at [facility] Left: Knee CEASAR [id number] 6192-1-010 / NA / [id number] Attune Pinning System Disp - [id number] Implanted:Qty: 1 on 01/11/2024 by Rachelle Blanco MD at [facility] Left: Knee DEPUY [id number] 12/04/2025 2544-00-111 / NA / [id number] Tibia Attune Fb Sz 4 Cemented - [id number] Implanted:Qty: 1 on 01/11/2024 by Rachelle Blanco MD at [facility] Left: Knee DEPUY [id number] 09/03/2033 1506-70-004 / NA / [id number] Insert Tibial Attune Aox Ps Fb Sz 4 8mm - [id number] Implanted:Qty: 1 on 01/11/2024 by Rachelle Blanco MD at [facility] Left: Knee [id number] 08/04/2028 1516-40-408 / NA / [id number] Femur Attune Ps Size 4 Left - [id number] Implanted:Qty: 1 on 01/11/2024 by Rachelle Blanco MD at [facility] Left: Knee DEPUY [id number] 07/05/2031 1504-10-104 / NA / [id number] Patella Attune Aox Medial Dome 35mm - [id number] Implanted:Qty: 1 on 01/11/2024 by Rachelle Blanco MD at [facility] Left: Knee DEPUY [id number] 07/05/2031 1518-20-035 / NA / [id number] Procedures Procedure Name Priority Date/Time Associated Diagnosis Comments HEMOGLOBIN Routine 01/12/2024 5:44 AM PLANNING TECHNICIAN ANESTHESIA BLOCK SPINAL 01/11/2024 11:14 AM PLANNING TECHNICIAN HEMOGLOBIN Routine 01/11/2024 7:55 AM PLANNING TECHNICIAN US ANES REFERENCE STAT 01/11/2024 7:4 6 AM PLANNING TECHNICIAN from Last 3 Months Results * (ABNORMAL) HEMOGLOBIN (01/12/2024 5:44 AM PLANNING TECHNICIAN) HGB 9.9(L) 12.0 - 16.0 g/dl 01/12/2024 6:12 AM PLANNING TECHNICIAN [facility] Blood BLOOD SPECIMEN / Unknown Venipuncture / Unknown 01/12/2024 5:44 AM PLANNING TECHNICIAN 01/12/2024 5:57 AM PLANNING TECHNICIAN us Janneth Nichole PA-C EC HEMATOLOGY ORDERABLES Final Result [facility] [address] [place] [address] * Spinal (01/11/2024 11:14 AM PLANNING TECHNICIAN) Narrative Polo Mills MD - 01/11/2024 11:14 AM PLANNING TECHNICIAN Polo Mills MD ? 01/11/2024 11:14 AM [...] decubitus Prep: ChloraPrep Patient monitoring: heart rate, alarm security or surveillance monitor and continuous pulse ox Approach: right paramedian Location: L3-4 Needle Needle type: pencil-tip Needle gauge: 24 G Needle length: 3.5 in Medications Administered mepivacaine 2% PF(Carbocaine PF/Polocaine-MPF) preservative free injection - Intrathecal 2.5 mL - 01/11/2024 9:25:00 AM Assessment Sensory level: Adequate Events: cerebrospinal fluid Procedure assessment: patient tolerated procedure well with no immediate complications Polo Mills MD PROCEDURE/MINOR JORDAN ORDERABLES Final Result * HEMOGLOBIN (01/11/2024 7:55 AM PLANNING TECHNICIAN) HGB 13.1 12.0 - 16.0 g/dl 01/11/2024 8:02 AM PLANNING TECHNICIAN [facility] Blood BLOOD SPECIMEN / Unknown Venipuncture / Unknown 01/11/2024 7:55 AM PLANNING TECHNICIAN 01/11/2024 7:58 AM PLANNING TECHNICIAN Rachelle Blanco MD EC HEMATOLOGY ORDERABLES Fi nal Result [facility] [address] [place] [address] * US ANES REFERENCE (01/11/2024 7:46 AM PLANNING TECHNICIAN) Narrative Lydia, User - 01/11/2024 7:46 AM PLANNING TECHNICIAN There is not a diagnostic result associated [...] OS FILMS IMAGING ORDERABLES F inal Result from Last [address] [facility] MEDICARE COST PART A&B Advance Directives For more information, please contact: [phone] * Full Code (Latest Code Status on File) Date Activated Date Inactivated Comments 01/11/2024 12:11 PM 01/12/2024 3:40 PM * Full Code Date Activated Date Inactivated Comments 01/11/2024 7:46 AM 01/11/2024 12:11 PM Care Teams Appointment Clerk Relationship Specialty Start Date End Date Virgen Arnold MD [address] [address] PCP - General Internal Medicine 01/11/24
[2024-01-16 20:57] VITALS: BP 132/70; PULSE 70; RESP 16; TEMP 36.7; O2SAT 96
[2024-01-16 20:59] VITALS: BP 132/70; PULSE 70; RESP 16; TEMP 36.7
== END 2024-01-16 20:59 | disposition home or self-care (01) ==
LOC: ED 20:32
PROVIDERS: Emergency Provider Emergency Medicine Emergency Medical Services; PCP Internal Medicine; Visit Provider Emergency Medicine Emergency Medical Services
DX: R42 Dizziness and giddiness (principal)
CPT/HCPCS: 99282; 99284

== ENCOUNTER 2024-03-09 08:13 | Outpatient (CLI) | payer MEDICARE, BC, SELFPAY | END 2024-03-09 08:14 | disposition home or self-care (01) | LOC: NFLDREF 14:49 | PROVIDERS: PCP Internal Medicine; Referring Provider Internal Medicine; Visit Provider Internal Medicine | DX: E78.5 Hyperlipidemia, unspecified (principal); I10 Essential (primary) hypertension | CPT/HCPCS: 80048; 80061 ==

== ENCOUNTER 2024-10-09 06:12 | Outpatient (CLI) | payer MEDICARE, BC, SELFPAY ==
--- NOTE | 2024-10-09 07:51 | P.ANES_ITS ---
Anesthesia Charges Start Date/Time Anesthesia Start Date: 10/09/24 Anesthesia Start Time: 07:20 Stop Date/Time Anesthesia Stop Date: 10/09/24 Anesthesia Stop Time: 07:49 Summary Extremes of Age - Over 70 or under 1: ADMINISTRATIVE ANALYST Coding CPT Codes CPT Codes: VERONICA LWR INTST NDSC NOS - 73785 ([id number]) P2 - PATIENT W/MILD SYST DISEASE, QX - ADMINISTRATIVE ANALYST SVC W/ MD MED DIRECTION, QK - CAD ENGINEER 2-4 CNCRNT ANES PROC Additional Codes: Summary - Extremes of Age - Over 70 or under 1: ADMINISTRATIVE ANALYST ([id number])
--- NOTE | 2024-10-09 07:51 | W.ANESCHARGE ---
Anesthesia Charges Start Date/Time Anesthesia Start Date: 10/09/24 Anesthesia Start Time: 07:20 Stop Date/Time Anesthesia Stop Date: 10/09/24 Anesthesia Stop Time: 07:49 Summary Extremes of Age - Over 70 or under 1: CAPPING MACHINE OPERATOR Coding CPT Codes CPT Codes: VERONICA LWR INTST NDSC NOS - 35047 ([id number]) P2 - PATIENT W/MILD SYST DISEASE, QX - CAPPING MACHINE OPERATOR SVC W/ MD MED DIRECTION, QK - MISSILE MECHANIC 2-4 CNCRNT ANES PROC Additional Codes: Summary - Extremes of Age - Over 70 or under 1: CAPPING MACHINE OPERATOR ([id number])
--- NOTE | 2024-10-09 09:04 | W.ANESCHARGE ---
Anesthesia Charges Start Date/Time Anesthesia Start Date: 10/09/24 Anesthesia Start Time: 07:20 Stop Date/Time Anesthesia Stop Date: 10/09/24 Anesthesia Stop Time: 07:49 Summary Extremes of Age - Over 70 or under 1: MDA Coding CPT Codes CPT Codes: ANES LWR INTST NDSC NOS - 03029 ([id number]) QK - CATERING TRUCK OPERATOR 2-4 CNCRNT ANES PROC, QX - COMMERCIAL LENDING VICE PRESIDENT SVC W/ MD MED DIRECTION, P2 - PATIENT W/MILD SYST DISEASE Additional Codes: Summary - Extremes of Age - Over 70 or under 1: MDA ([id number])
== END 2024-10-09 06:13 | disposition home or self-care (01) ==
LOC: OP CLINIC 06:13
PROVIDERS: PCP Internal Medicine; Visit Provider Internal Medicine
DX: Z12.11 Encounter for screening for malignant neoplasm of colon (principal); D12.2 Benign neoplasm of ascending colon; Z86.0100 Personal history of colon polyps, unspecified
CPT/HCPCS: 00811; 00812; 45380; 88305; 99100; J2704